=== PATIENT | male | born 1945 | race Caucasian/White ===

== ENCOUNTER 2017-01-27 13:17 | Emergency (ER) | payer OTHER ==
[~2017-01-27] VITALS: Ht 180.3 cm; Wt 152.0 kg
[~2017-01-27 13:17] MED LIST: ADVIN25/60 INH; ALBU1AER9 INH; ALLO100T PO; APR/25 PO; ASPCH81X PO; BUPR-79 PO; CARV25TA2 PO; CHOL100010 PO; CTPTP3 TD; ENAL1TAB31 PO; FAMO1TAB48 PO; FRS/40 PO; FURO20TA PO; GLIM4TAB2 PO; INSDGI SC; INSUINJ8 SC; IPRASOL4 INH; IRBE-39 PO; LEVO100T48 PO; MULT-506 PO; NITR0.4D TD; NITR0.4S76 SL; OXGN; PRS5 PO; ROSU40TA PO; SNK PO; SPIR25TA PO; TERA5CAP PO; TIOTCAP INH; WARF3TAB PO
[2017-01-27 13:19] VITALS: TEMP 36.5; Ht 180.3 cm; Wt 152.0 kg
[2017-01-27] MEDS ORDERED: INSDGI SC ×2 (14:11)
[2017-01-27] MEDS ORDERED: NVLNI SC (14:11)
[2017-01-27] MEDS ORDERED: CLON0.3D4 TD (14:11)
[2017-01-27] MEDS ORDERED: LEVO100T PO (14:11)
[2017-01-27] MEDS ORDERED: CEFTRIAXONE SOD INJ 1 GM ADDVIAL IV STA (14:27)
[2017-01-27] MEDS ORDERED: SODIUM CHLORIDE 0.9% 500ML 500 ML IV STA (14:27)
[2017-01-27] MEDS ORDERED: CEPH500C PO (16:21)
--- NOTE | 2017-01-27 16:22 | EMERGENCY ROOM VISIT NOTE ---
History Report prepared by Simi: Veronica Joseph Under the Supervision of: Dr. Mack Santana D.O. First contact with patient: 13:40 Chief Complaint: ILLNESS Stated Complaint: SENT BY 'S OFFICE/ADMISSION-SEPTIC Nursing Triage Summary: general illness, "more SOB than usual" states he was [facility] today and that he had blood work drawn there and they were going to fax it over to our ER History of Present Illness The patient is a 71 year old male who presents to the Emergency Room with complaints of a persistent illness that began several days ago. He currently rates his discomfort as a 2/10 in severity. The patient's notes that over the past several days, the patient has been experiencing urinary incontinence. She states that the patient had a subjective fever last evening and additionally had chills. The patient's notes that the patient has a history of BPH. She states that the patient was taken to his PCP's office today and had lab work, urine test, and a chest x-ray. She states that the patient was referred to the emergency department to rule out urosepsis. The patient states that he has a chronic cough, but states that it has recently worsened. Source of History: patient Onset: several days ago Position: other (global) Symptom Intensity: 2/10 Quality: other (illness) Timing: other (persistent) Associated Symptoms: + chills, + fevers, + urinary symptoms (urinary incontinence) Review of Systems See HPI for pertinent positives & negatives. A total of 10 systems reviewed and were otherwise negative. Past Medical & Surgical Medical Problems: (1) Anticoagulated on warfarin (2) Benign prostatic hypertrophy (3) Closed fracture of right ankle (4) COPD (chronic obstructive pulmonary disease) (5) Diabetes mellitus, type 2 (6) Dyslipidemia (7) GERD (gastroesophageal reflux disease) (8) History of DVT (deep vein thrombosis) (9) History of meningioma (10) History of pulmonary embolism (11) History of squamous cell carcinoma of skin (12) Hypertension (13) Hypothyroidism (14) Nocturnal hypoxia (15) Sleep apnea (16) Systolic CHF, chronic Surgical Problems: (1) History of inguinal hernia repair (2) S/P TURP (transurethral resection of prostate) (3) Skin cancer removal (4) Status post coronary artery stent placement (5) Status post craniotomy Family History Cancer MOTHER Diabetes MOTHER HTN BROTHER Heart attack BROTHER Social History Smoking Status: Former Smoker Alcohol Use: none Drug Use: none Marital Status: Housing Status: lives with family Occupation Status: retired Current/Historical Medications Scheduled Allopurinol (Zyloprim), 200 MG PO DAILY Aspirin (Aspirin Chewable), 81 MG PO DAILY Bupropion (Wellbutrin Sr), 150 MG PO BID Carvedilol (Coreg), 50 MG PO BID Cephalexin Monohydrate (Keflex), 500 MG PO QID Clonidine Hcl (Fficiyqa-Bnu-7), 1 PATCH TD WK Enalapril Maleate (Vasotec), 20 MG PO BID Famotidine (Pepcid), 40 MG PO QPM Finasteride (Finasteride), 5 MG PO QPM Furosemide (Lasix), 40 MG PO MWF Furosemide (Lasix), 20 MG PO DIRECTED Glimepiride (Glimepiride), 4 MG PO BID Hydralazine HCl (Hydralazine HCl), 25 MG PO BID Insulin Glargine (Lantus), 70 UNITS SC HS Insulin Glargine (Lantus), 30 UNITS SC AM Insulin Human NPH (Novolin N), 30 UNITS SC AMHS Irbesartan (Avapro), 1 TAB PO QAM Levothyroxine Sodium (Synthroid), 100 MCG PO DAILY Multivitamin (Multivitamin), 1 TAB PO QAM Oxygen (Oxygen), 4 LITER NA HS Rosuvastatin Calcium (Crestor), 40 MG PO QPM Spironolactone (Aldactone), 12.5 MG PO QAM Terazosin (Hytrin), 5 MG PO BID Warfarin Sodium (Coumadin), 9 MG PO 3XWK Warfarin Sodium (Coumadin), 6 MG PO 4XWK Scheduled PRN Ipratropium-Albuterol (Duoneb), 1 TREATMENT INH QID PRN for SOB/Wheezing Nitroglycerin (Nitroglycerin Lingual), 1 SPRAY SL UD PRN for Chest Pain Senna (Senna Lax), 1 TAB PO BID PRN for Constipation Allergies Coded Allergies: No Known Allergies (Verified , 01/27/17) Physical Exam Vital Signs Date Time Temp Pulse Resp B/P Pulse Ox O2 Delivery O2 Flow Rate FiO2 01/27/17 16:48 67 18 118/78 98 01/27/17 15:15 77 18 122/84 98 Room Air 01/27/17 13:35 Room Air 92 01/27/17 13:33 20 93 Room Air 01/27/17 13:19 36.5 70 18 97/60 91 Room Air Physical Exam CONSTITUTIONAL/VITAL SIGNS: Reviewed / noted above. GENERAL: Non-toxic in appearance. INTEGUMENTARY: Warm, dry, and [place]. HEAD: Normocephalic. EYES: without scleral icterus or trauma. ENT/OROPHARYNX: clear and moist. LYMPHADENOPATHY/NECK: Is supple without lymphadenopathy or meningismus. RESPIRATORY: Lungs clear and equal. CARDIOVASCULAR: Regular rate and rhythm. GI/ABDOMEN: Soft and nontender. No organomegaly or pulsatile mass. No rebound or guarding. Normal bowel sounds. EXTREMITIES: Warm and well perfused. BACK: No CVA tenderness. NEUROLOGICAL: Intact without focal deficits. PSYCHIATRIC: normal affect. MUSCULOSKELETAL: Normally developed with good muscle tone. Medical Decision & Procedures ER Provider Diagnostic Interpretation: Chest x-ray done as an outpatient today showed worsening bi-basilar atelectasis. Laboratory Results Lab work done at outpatient today: WBC 10.29 Hemoglobin 13.5 Platelet 129 Urinalysis large blood, nitrite negative, esterase large BUN 30 Creatinine 2.8. Laboratory results as stated above per my review. Medications Administered Medications (Trade) Dose Ordered Sig/Niyah Route Start Time Stop Time Status Last Admin Dose Admin Ceftriaxone Sodium 1 gm 1 gm NOW STAT IV 01/27/17 14:27 01/27/17 14:29 DC 01/27/17 15:08 1 GM Sodium Chloride (Nss 500ml) 500 ml @ 999 mls/hr Q31M STAT IV 01/27/17 14:27 01/27/17 14:57 DC 01/27/17 15:08 999 MLS/HR ED Course 1341: Previous medical records were reviewed. The patient was evaluated in room B12B. A complete history and physical examination was performed. 1427: Ordered Sodium Chloride 500 ml @ 999 mls/hr IV, Rocephin Inj 1 gm IV. 1622: I reevaluated the patient and he is resting comfortably. I discussed the exam findings with him and I discussed the treatment plan. He verbalized complete understanding and agreement. He is ready to go home. Medical Decision Differential includes viral illness, influenza, streptococcal pharyngitis, meningitis, pneumonia, sinusitis, UTI, pyelonephritis, otitis media. This 71-year-[facility]. Concern was the patient's renal insufficiency and to rule out sepsis. The patient's symptoms primarily involving urinary system. His cough is mostly chronic. Blood work performed earlier today as noted above. The white blood count was unremarkable. He is not anemic. The urine suggest infection. He has had some subjective chills but no documented fever. He had no fever here today. His laboratory studies also suggest dehydration and worsening of his baseline renal insufficiency. His baseline creatinine was 1.9 in November. His BUN today is 30. A chest x- ray showed worsening atelectasis. He was treated with IV fluids here as well as IV antibiotics. The patient is felt to be stable for discharge on antibiotics. He will be placed on Keflex twice a day. Follow-up with PCP recommended 1-2 days for recheck. Impression Primary Impression: UTI (urinary tract infection) Additional Impressions: Dehydration Renal insufficiency Scribe Attestation The scribe's documentation has been prepared under my direction and personally reviewed by me in its entirety. I confirm that the note above accurately reflects all work, treatment, procedures, and medical decision making performed by me. Departure Information Dispostion Home / Self-Care Prescriptions Cephalexin Monohydrate (Keflex) 500 Mg Cap 500 MG PO QID, #20 CAP Prov: Mack Santnaa D.O. 01/27/17 Referrals No Doctor, Assigned (PCP) Forms HOME CARE DOCUMENTATION FORM, IMPORTANT VISIT INFORMATION, WORK / SCHOOL INSTRUCTIONS Patient Instructions [facility], UTI Additional Instructions Keflex as prescribed. Follow-up with your doctor for recheck in 1-2 days. Return to emergency department for worsening or new concerns. Problem Qualifiers
[2017-01-27 16:48] VITALS: BP 118/78; PULSE 67; O2SAT 98
== END 2017-01-27 17:02 | disposition home or self-care (01) ==
LOC: C.EDB 13:19
DX: E86.0 Dehydration (principal); N39.0 Urinary tract infection, site not specified; N28.9 Disorder of kidney and ureter, unspecified; I10 Essential (primary) hypertension; E11.9 Type 2 diabetes mellitus without complications; E78.5 Hyperlipidemia, unspecified; E03.9 Hypothyroidism, unspecified; J44.9 Chronic obstructive pulmonary disease, unspecified; I50.20 Unspecified systolic (congestive) heart failure; K21.9 Gastro-esophageal reflux disease without esophagitis; N40.0 Benign prostatic hyperplasia without lower urinary tract symptoms; G47.30 Sleep apnea, unspecified; Z86.711 Personal history of pulmonary embolism; Z86.718 Personal history of other venous thrombosis and embolism; Z87.81 Personal history of (healed) traumatic fracture; Z79.01 Long term (current) use of anticoagulants; Z98.61 Coronary angioplasty status; Z98.890 Other specified postprocedural states; Z79.82 Long term (current) use of aspirin; Z79.4 Long term (current) use of insulin; Z79.899 Other long term (current) drug therapy; Z80.9 Family history of malignant neoplasm, unspecified; Z83.3 Family history of diabetes mellitus; Z82.49 Family history of ischemic heart disease and other diseases of the circulatory system

== ENCOUNTER 2021-08-28 11:43 | Inpatient (IN) ==
[2021-08-28] MEDS ORDERED: ALBUT/IPRATROP 3MG/0.5MG NEB 3 ML VIAL INH STA (12:07)
[2021-08-28] MEDS ORDERED: dexAMETHasone**PF** 10 MG/ML VIAL IV ONE (12:07)
--- NOTE | 2021-08-28 12:14 | Emergency Department Note ---
Impression & Plan SOB (shortness of breath), COPD exacerbation, Cough, COVID-19 ED Provider Note NAME: TERESSA ROJAS AGE: 75 SEX: M : 1945 ARRIVES VIA: Walk-In INFORMANT: [Patient] ED PROVIDER(S): [Norris Sheets MD] CHIEF COMPLAINT: Illness HISTORY OF PRESENT ILLNESS: The patient is a 75-year-old male who has been sick for 5 days with a cough, some shortness of breath, and a headache. No fever. The patient was tested a few days ago and his Covid results are positive. He is vaccinated against COVID-19. No known Covid exposures. Patient has a home pulse ox and his saturation has been in the high 80s, he has been feeling more short of breath. He went to [facility] today and he was referred to the ER for further testing and probable admission. The patient does have COPD, he is diabetic. No chest pain. No vomiting or diarrhea. REVIEW OF SYSTEMS: See HPI for pertinent positives and negatives. A total of ten systems were reviewed and were otherwise negative. PMHx/PSHx: See Below SOCIAL HISTORY: See Below. PHYSICAL EXAM: GENERAL: Patient is in no obvious distress. HEENT: No acute trauma, normocephalic atraumatic, mucous membranes moist, no nasal congestion, no scleral icterus. NECK: No stridor, no adenopathy, no meningismus, trachea is midline. LUNGS: The patient does seem short of breath just sitting on the stretcher. He has an increased respiratory rate. No wheezing. He does have crackles bilaterally. Breath sounds are diminished bilaterally. HEART: Without murmurs gallops or rubs, regular rate and rhythm. ABDOMEN: Soft, nontender, bowel sounds positive, no hernias, no peritonitis. EXTREMITIES: No cyanosis, mild bilateral pedal edema, full range of motion of all the joints without pain or difficulty, no signs for acute trauma. NEUROLOGIC: Oriented x 3, no acute motor or sensory deficits, no focal weakness. SKIN: No rash, no jaundice, no diaphoresis. DIFFERENTIAL DIAGNOSIS: Reactive airway disease, pneumonia, pneumothorax, COVID-19, COPD, CHF, infection, cardiac ischemia, pulmonary embolism, bronchitis, musculoskeletal, gastrointestinal, as well as other pathologies. EMERGENCY DEPARTMENT COURSE/PROCEDURES: ECG: Indication was shortness of breath. The ECG shows a normal sinus rhythm with a rate of 77. There is no ST elevation, no PVCs. The QTc is 459. Continuous Cardiac Monitoring: An order was placed for continuous cardiac monitoring. The monitor shows a rate of 75 with normal sinus rhythm. MEDICAL DECISION MAKING: There is no leukocytosis, in fact, the white count was slightly low at 4.5. There was a normal hemoglobin. Platelet count somewhat low at 108. INR was 2, this is consistent with his Coumadin use. There was a slight creatinine elevation at 1.48. No significant electrolyte abnormality requiring emergent correction. Lactic acid level was not elevated. No concerning liver enzyme elevation. Covid test returned positive. Chest x-ray showed some chronic findings, there is no CHF, pneumonia or pneumothorax. On exam, the patient appeared short of breath. He had an increased respiratory rate. The patient received IV Decadron, he was given a DuoNeb. Patient is Covid positive with a history of COPD. He is feeling short of breath and looks short of breath. I feel he is suffering from an exacerbation of COPD. The patient would benefit from a hospital stay. He needs monitoring, treatment for his COPD flare. I did speak with the patient and case management. The on- call hospitalist was consulted. Past Med/Surg History Medical History Anticoagulated on warfarin COPD (chronic obstructive pulmonary disease) Diabetes mellitus, type 2 Hypertension Social History Smoking Status: Never smoker Feels Safe at Home: Yes Allergies Allergies Allergy/AdvReac Type Severity Reaction Status Date / Time No Known Allergies Allergy Verified 08/28/21 14:22 Home Meds Home Medications Medication Instructions Recorded Confirmed Senna Lax 1 tab PO HS 08/28/21 08/28/21 acetaminophen 500 mg tablet 500 mg PO Q6H PRN 08/28/21 08/28/21 bupropion HCl 150 mg tablet,12 hr 150 mg PO BID 08/28/21 08/28/21 sustained-release carvedilol 25 mg tablet 50 mg PO BID 08/28/21 08/28/21 clonidine 0.3 mg/24 hr weekly 1 patch TRANSDERMAL WK 08/28/21 08/28/21 transdermal patch famotidine 20 mg tablet 20 mg PO HS 08/28/21 08/28/21 finasteride 5 mg tablet 5 mg PO HS 08/28/21 08/28/21 furosemide 20 mg tablet (Lasix) 20 mg PO 5XWK 08/28/21 08/28/21 furosemide 40 mg tablet (Lasix) 40 mg PO 3XWK 08/28/21 08/28/21 guaifenesin 600 mg tablet, 600 mg PO Q12H 08/28/21 08/28/21 extended release 12 hr (Mucinex) hydralazine 50 mg tablet 50 mg PO TID 08/28/21 08/28/21 insulin glargine 100 unit/mL 70 unit SUBCUT BID 08/28/21 08/28/21 subcutaneous solution (Lantus U-100 Insulin) insulin regular human 100 unit/mL 30 unit SUBCUT TID 08/28/21 08/28/21 injection solution (Novolin R Regular U-100 Insulin) ipratropium 0.5 mg-albuterol 3 mg 1 ml INHALATION QID PRN 08/28/21 08/28/21 (2.5 mg base)/3 mL nebulization soln levothyroxine 100 mcg tablet 100 mcg PO QAM 08/28/21 08/28/21 losartan 100 mg tablet 100 mg PO QAM 08/28/21 08/28/21 multivitamin 1 tab PO QAM 08/28/21 08/28/21 nitroglycerin 1 patch TRANSDERMAL QAM 08/28/21 08/28/21 rosuvastatin 40 mg tablet 40 mg PO HS 08/28/21 08/28/21 spironolactone 25 mg tablet 12.5 mg PO BID 08/28/21 08/28/21 terazosin 5 mg capsule 5 mg PO BID 08/28/21 08/28/21 umeclidinium 62.5 mcg-vilanterol 1 inh INHALATION DAILY 08/28/21 08/28/21 25 mcg/actuation powdr for inhalation (Anoro Ellipta) warfarin 3 mg tablet 9 mg PO 2XWK 08/28/21 08/28/21 warfarin 6 mg tablet 6 mg PO 5XWK 08/28/21 08/28/21 Results & Data (ED) Vital Signs Vital Signs - 24 hr 08/28/21 11:45 08/28/21 12:08 08/28/21 12:43 Temperature 36.0 C L Temperature Source Temporal Artery Scan Pulse Rate 75 Pulse Rate from SpO2 Sensor Respiratory Rate 20 Respiratory Rate [Exercises] Respiratory Rate [Recovery] Respiratory Effort / Characteristics Non-Labored Spontaneous Respiratory Depth Normal Respiratory Pattern Regular Blood Pressure 194/96 H Blood Pressure Mean 128 Blood Pressure Position Sitting Pulse Oximetry 93 93 Pulse Oximetry [Exercises] Pulse Oximetry [Recovery] Oxygen Delivery Method Room Air Room Air Room Air Oxygen Flow Rate 0 Sepsis Recent Fever Within 48 Hours No Sepsis New/Unexplained Change in Mental Status No Sepsis Action Taken by Nursing No Action Required 08/28/21 12:50 08/28/21 13:00 08/28/21 13:30 Temperature Temperature Source Pulse Rate 76 80 78 Pulse Rate from SpO2 Sensor 78 80 78 Respiratory Rate 17 20 15 Respiratory Rate [Exercises] 32 H Respiratory Rate [Recovery] 36 H Respiratory Effort / Characteristics Respiratory Depth Respiratory Pattern Blood Pressure 143/67 H Blood Pressure Mean 92 Blood Pressure Position Pulse Oximetry 94 94 93 Pulse Oximetry [Exercises] 93 Pulse Oximetry [Recovery] 94 Oxygen Delivery Method Room Air Oxygen Flow Rate 0 Sepsis Recent Fever Within 48 Hours Sepsis New/Unexplained Change in Mental Status Sepsis Action Taken by Nursing 08/28/21 13:34 Temperature Temperature Source Pulse Rate Pulse Rate from SpO2 Sensor Respiratory Rate 20 Respiratory Rate [Exercises] Respiratory Rate [Recovery] Respiratory Effort / Characteristics Non-Labored Spontaneous Respiratory Depth Respiratory Pattern Blood Pressure Blood Pressure Mean Blood Pressure Position Pulse Oximetry 93 Pulse Oximetry [Exercises] Pulse Oximetry [Recovery] Oxygen Delivery Method Room Air Oxygen Flow Rate Sepsis Recent Fever Within 48 Hours Sepsis New/Unexplained Change in Mental Status Sepsis Action Taken by [facility] Medications Current Medication List: was personally reviewed by me Laboratory Data Attestation: I reviewed the patient's lab results. Result diagrams: 08/28/21 13:42 08/28/21 13:42 Lab Results 08/28/21 08/28/21 08/28/21 Range/Units 12:43 12:43 13:42 WBC 4.56 L (4.8-10.8) K/uL RBC 4.82 (4.7-6.1) M/uL Hgb 14.6 (14.0-18.0) g/dL Hct 44.7 (42-52) % MCV 92.7 (80-100) fL MCH 30.3 (25-34) pg MCHC 32.7 (32-36) g/dL RDW Std Deviation 54.1 H (36.4-46.3) fL RDW Coeff of Gucci 15.8 H (11.5-14.5) % Plt Count 108 L (130-400) K/uL MPV 10.0 (7.4-10.4) fL Immature Gran % (Auto) 0.0 % Neut % (Auto) 63.8 % Lymph % (Auto) 26.3 % [place] % (Auto) 8.6 % Eos % (Auto) 0.9 % Baso % (Auto) 0.4 % Neut # (Auto) 2.91 (1.4-6.5) K/uL Lymph # (Auto) 1.20 (1.2-3.4) K/uL [facility] # (Auto) 0.39 (0.11-0.59) K/uL Eos # (Auto) 0.04 (0-0.5) K/uL Baso # (Auto) 0.02 (0-0.2) K/uL Immature Gran # (Auto) 0.00 (0.00-0.02) K/uL PT (9.0-12.0) Seconds INR (0.9-1.1) APTT (21.0-31.0) Seconds PTT Ratio Sodium (136-145) mmol/L Potassium (3.5-5.1) mmol/L Chloride (98-107) mmol/L Carbon Dioxide (21-32) mmol/L Anion Gap (3-11) BUN (7-18) mg/dl Creatinine (0.6-1.4) mg/dl Est Cr Clr Drug Dosing ml/min Est GFR ( Amer) ml/min Est GFR (Non-Af Amer) ml/min BUN/Creatinine Ratio (10-20) Glucose (70-99) mg/dl Lactate (0.4-2.0) mmol/L Calcium (8.5-10.1) mg/dl Magnesium (1.8-2.4) mg/dl Total Bilirubin (0.2-1) mg/dl AST (15-37) U/L ALT (12-78) U/L Alkaline Phosphatase (45-117) U/L Troponin I (0-0.045) ng/ml C-Reactive Protein (0-0.29) mg/dl Total Protein (6.4-8.2) gm/dl Albumin (3.4-5.0) gm/dl Globulin (2.5-4.0) gm/dl Albumin/Globulin Ratio (0.9-2) Procalcitonin (0-0.5) ng/ml COVID-19 Eval Order Covid19 at [facility] SARS-CoV-2 (PCR) POSITIVE A* (Negative) 08/28/21 08/28/21 08/28/21 Range/Units 13:42 13:42 13:42 WBC (4.8-10.8) K/uL RBC (4.7-6.1) M/uL Hgb (14.0-18.0) g/dL Hct (42-52) % MCV (80-100) fL MCH (25-34) pg MCHC (32-36) g/dL RDW Std Deviation (36.4-46.3) fL RDW Coeff of Gucci (11.5-14.5) % Plt Count (130-400) K/uL MPV (7.4-10.4) fL Immature Gran % (Auto) % Neut % (Auto) % Lymph % (Auto) % [place] % (Auto) % Eos % (Auto) % Baso % (Auto) % Neut # (Auto) (1.4-6.5) K/uL Lymph # (Auto) (1.2-3.4) K/uL [facility] # (Auto) (0.11-0.59) K/uL Eos # (Auto) (0-0.5) K/uL Baso # (Auto) (0-0.2) K/uL Immature Gran # (Auto) (0.00-0.02) K/uL PT 19.4 H (9.0-12.0) Seconds INR 2.0 H (0.9-1.1) APTT 38.6 H (21.0-31.0) Seconds PTT Ratio 1.5 Sodium 141 (136-145) mmol/L Potassium 3.8 (3.5-5.1) mmol/L Chloride 109 H (98-107) mmol/L Carbon Dioxide 23 (21-32) mmol/L Anion Gap 9.0 (3-11) BUN 19 H (7-18) mg/dl Creatinine 1.48 H (0.6-1.4) mg/dl Est Cr Clr Drug Dosing 64.0 ml/min Est GFR ( Amer) 52.9 ml/min Est GFR (Non-Af Amer) 45.6 ml/min BUN/Creatinine Ratio 12.8 (10-20) Glucose 135 H (70-99) mg/dl Lactate 0.8 (0.4-2.0) mmol/L Calcium 9.3 (8.5-10.1) mg/dl Magnesium 2.2 (1.8-2.4) mg/dl Total Bilirubin 0.4 (0.2-1) mg/dl AST 17 (15-37) U/L ALT 27 (12-78) U/L Alkaline Phosphatase 67 (45-117) U/L Troponin I < 0.015 (0-0.045) ng/ml C-Reactive Protein 1.60 H (0-0.29) mg/dl Total Protein 7.0 (6.4-8.2) gm/dl Albumin 3.2 L (3.4-5.0) gm/dl Globulin 3.8 (2.5-4.0) gm/dl Albumin/Globulin Ratio 0.8 L (0.9-2) Procalcitonin (0-0.5) ng/ml COVID-19 Eval Order SARS-CoV-2 (PCR) (Negative) 08/28/21 08/28/21 Range/Units 13:42 13:43 WBC (4.8-10.8) K/uL RBC (4.7-6.1) M/uL Hgb (14.0-18.0) g/dL Hct (42-52) % MCV (80-100) fL MCH (25-34) pg MCHC (32-36) g/dL RDW Std Deviation (36.4-46.3) fL RDW Coeff of Gucci (11.5-14.5) % Plt Count (130-400) K/uL MPV (7.4-10.4) fL Immature Gran % (Auto) % Neut % (Auto) % Lymph % (Auto) % [facility] % (Auto) % Eos % (Auto) % Baso % (Auto) % Neut # (Auto) (1.4-6.5) K/uL Lymph # (Auto) (1.2-3.4) K/uL [facility] # (Auto) (0.11-0.59) K/uL Eos # (Auto) (0-0.5) K/uL Baso # (Auto) (0-0.2) K/uL Immature Gran # (Auto) (0.00-0.02) K/uL PT (9.0-12.0) Seconds INR (0.9-1.1) APTT (21.0-31.0) Seconds PTT Ratio Sodium (136-145) mmol/L Potassium (3.5-5.1) mmol/L Chloride (98-107) mmol/L Carbon Dioxide (21-32) mmol/L Anion Gap (3-11) BUN (7-18) mg/dl Creatinine (0.6-1.4) mg/dl Est Cr Clr Drug Dosing ml/min Est GFR ( Amer) ml/min Est GFR (Non-Af Amer) ml/min BUN/Creatinine Ratio (10-20) Glucose (70-99) mg/dl Lactate (0.4-2.0) mmol/L Calcium (8.5-10.1) mg/dl Magnesium (1.8-2.4) mg/dl Total Bilirubin (0.2-1) mg/dl AST (15-37) U/L ALT (12-78) U/L Alkaline Phosphatase (45-117) U/L Troponin I (0-0.045) ng/ml C-Reactive Protein Cancelled (0-0.29) mg/dl Total Protein (6.4-8.2) gm/dl Albumin (3.4-5.0) gm/dl Globulin (2.5-4.0) gm/dl Albumin/Globulin Ratio (0.9-2) Procalcitonin < 0.05 (0-0.5) ng/ml COVID-19 Eval Order SARS-CoV-2 (PCR) (Negative) Administered Medications Discontinued Medications Albuterol (Albut/Ipratrop 3mg/0.5mg Neb 3 Ml Vial) 3 ml INH NOW STA Stop: 08/28/21 12:08 Last Admin: 08/28/21 13:33 Dose: 3 ml Documented by: [id number] Dexamethasone Sodium Phosphate (DexamethasonePf 10 Mg/Ml Vial) 6 mg IV NOW ONE Stop: 08/28/21 12:08 Last Admin: 08/28/21 12:49 Dose: 6 mg Documented by: [id number] Imaging Data Radiologist's Impression: Chest X-Ray 08/28/21 12:08 XR chest 1V portable HISTORY: 75 years-old Male SOB acute shortness of breath COMPARISON: Chest radiograph 06/02/2016 TECHNIQUE: Portable AP view of the chest FINDINGS: Cardiac silhouette is upper limits of normal in size. Calcified plaque of the thoracic aorta. No pneumothorax, large pleural effusion or overt pulmonary edema. Retrocardiac opacity is similar to comparison suggestive of atelectasis/scarring. Chronic interstitial coarsening is most pronounced at the level of the lung bases. Degenerative changes of the shoulders and spine. Possible hiatal hernia. IMPRESSION: 1. Chronic interstitial coarsening without acute process. 2. Retrocardiac left basilar opacities suggestive of atelectasis/scarring is si milar to the 06/02/2016 exam. ACT 112: Negative or not required by law. The above report was generated using voice recognition software. It may contain grammatical, syntax or spelling errors. Electronically signed by: Harrison Wolfe M.D. 08/28/2021 12:35 PM Discharge Plan Visit Data Chief Complaint: Illness Stated Complaint: COVID+, REFERRED BY DOCTOR ED Provider: Norris Sheets Discharge Problem: SOB (shortness of breath), COPD exacerbation, Cough, COVID-19 Patient Disposition: Admitted As Inpatient Condition: Fair Forms Stand Alone Forms: My [facility] Prescriptions Prescriptions: No Action multivitamin Tablet 1 tab PO QAM RF: 0 furosemide [Lasix] 40 mg Tablet 40 mg PO 3XWK RF: 0 terazosin 5 mg Capsule 5 mg PO BID RF: 0 bupropion HCl 150 mg Tablet Sustained-Release 12 Hr 150 mg PO BID RF: 0 carvedilol 25 mg Tablet 50 mg PO BID RF: 0 ipratropium-albuterol [DuoNeb] 0.5 mg-3 mg(2.5 mg base)/3 mL Solution For Nebulization 1 ml INHALATION QID PRN (Reason: Shortness Of Breath) RF: 0 Lantus U-100 Insulin 100 unit/mL Solution 70 unit SUBCUT BID RF: 0 acetaminophen 500 mg Tablet 500 mg PO Q6H PRN (Reason: Pain) RF: 0 spironolactone 25 mg Tablet 12.5 mg PO BID RF: 0 warfarin 3 mg tablet 9 mg PO 2XWK RF: 0 levothyroxine 100 mcg Tablet 100 mcg PO QAM RF: 0 warfarin 6 mg Tablet 6 mg PO 5XWK RF: 0 famotidine 20 mg Tablet 20 mg PO HS RF: 0 Novolin R Regular U-100 Insuln 100 unit/mL Solution 30 unit SUBCUT TID RF: 0 hydralazine 50 mg Tablet 50 mg PO TID RF: 0 clonidine 0.3 mg/24 hr Patch Weekly 1 patch transdermal WK RF: 0 furosemide [Lasix] 20 mg Tablet 20 mg PO 5XWK RF: 0 losartan 100 mg Tablet 100 mg PO QAM RF: 0 finasteride 5 mg Tablet 5 mg PO HS RF: 0 rosuvastatin 40 mg Tablet 40 mg PO HS RF: 0 Anoro Ellipta 62.5-25 mcg/actuation Blister With Device 1 inh INHALATION DAILY RF: 0 guaifenesin [Mucinex] 600 mg Tablet Extended Release 12hr 600 mg PO Q12H RF: 0 Senna Lax 1 tab PO HS RF: 0 nitroglycerin 1 patch transdermal QAM RF: 0 Referrals Referrals: Charan Anderson MD [Primary Care Provider] -
--- NOTE | 2021-08-28 12:36 | XRay Report ---
XR chest 1V portable HISTORY: 75 years-old Male SOB acute shortness of breath COMPARISON: Chest radiograph 06/02/2016 TECHNIQUE: Portable AP view of the chest FINDINGS: Cardiac silhouette is upper limits of normal in size. Calcified plaque of the thoracic aorta. No pneu mothorax, large pleural effusion or overt pulmonary edema. Retrocardiac opacity is similar to compari son suggestive of atelectasis/scarring. Chronic interstitial coarsening is most pronounced at the lev el of the lung bases. Degenerative changes of the shoulders and spine. Possible hiatal hernia. IMPRESSION: 1. Chronic interstitial coarsening without acute process. 2. Retrocardiac left basilar opacities suggestive of atelectasis/scarring is similar to the 06/02/2016 exam. ACT 112: Negative or not required by law. The above report was generated using voice recognition software. It may contain grammatical, syntax o r spelling errors. Electronically signed by: Harrison Wolfe M.D. 08/28/2021 12:35 PM
[2021-08-28 13:52] LABS: Basophils # (auto) 0.02 K/uL (0-0.2); Basophils % (auto) 0.4 %; Eosinophils # (auto) 0.04 K/uL (0-0.5); Eosinophils % (auto) 0.9 %; Hematocrit (blood only) 44.7 % (42-52); Hemoglobin 14.6 g/dL (14.0-18.0); Lymphocytes % (auto) 26.3 %; Mean Corpuscular Hemoglobin 30.3 pg (25-34); Mean Corpuscular Hgb Conc 32.7 g/dL (32-36); Mean Corpuscular Volume 92.7 fL (80-100); Monocytes # (auto) 0.39 K/uL (0.11-0.59); Monocytes % (auto) 8.6 %; Neutrophils # (auto) 2.91 K/uL (1.4-6.5); Neutrophils % (auto) 63.8 %; Platelet Count 108 K/uL (130-400); RDW Coefficient of Variation 15.8 % (11.5-14.5); RDW Standard Deviation 54.1 fL (36.4-46.3); Red Blood Count 4.82 M/uL (4.7-6.1); White Blood Count 4.56 K/uL (4.8-10.8)
[2021-08-28 14:01] LABS: Partial Thromboplastin Ratio 1.5; Partial Thromboplastin Time 38.6 Seconds (21.0-31.0); Prothrombin Time 19.4 Seconds (9.0-12.0)
[2021-08-28 14:24] LABS: Alanine Aminotransferase 27 U/L (12-78); Albumin Level 3.2 gm/dl (3.4-5.0); Aspartate Aminotransferase 17 U/L (15-37); BUN Creatinine Ratio 12.8 (10-20); Blood Urea Nitrogen 19 mg/dl (7-18); Calcium 9.3 mg/dl (8.5-10.1); Carbon Dioxide 23 mmol/L (21-32); Chloride 109 mmol/L (98-107); Est GFR (African American) 52.9 ml/min; Est GFR (Non-African American) 45.6 ml/min; Glucose 135 mg/dl (70-99); Magnesium 2.2 mg/dl (1.8-2.4); Potassium 3.8 mmol/L (3.5-5.1); Sodium 141 mmol/L (136-145)
[2021-08-28 14:29] LABS: Albumin Globulin Ratio 0.8 (0.9-2); Alkaline Phosphatase 67 U/L (45-117); Bilirubin,Total 0.4 mg/dl (0.2-1); Globulin 3.8 gm/dl (2.5-4.0); Troponin I < 0.015 ng/ml (0-0.045)
--- NOTE | 2021-08-28 16:31 | History & Physical Report ---
Date of Service August 28, 2021 Assessment & Plan (1) COPD (chronic obstructive pulmonary disease): Plan: History of COPD and sleep apnea Likely has exacerbation due to COVID-19 infection No definite pneumonia in x-ray Saturating reasonably well on room air Uses oxygen at 5 L with CPAP at night and 2 to 2.5 L on ambulation Dexamethasone has been started for COPD exacerbation and also treatment for Covid 19 infection His inhalers and other medications will be continued (2) COVID-19: Plan: Awaiting CRP and prolactin level If the prolactin is elevated will add antibiotic (3) Hypertension: Plan: Remains on the upper side We will continue current medication (4) Hypothyroidism: Plan: Continue supplement (5) GERD (gastroesophageal reflux disease): Plan: Continue PPI and H2 blockade (6) Benign prostatic hypertrophy: Plan: Continue current medication (7) Diabetes mellitus, type 2: Plan: Will continue insulin as he has been taking at home We will check hemoglobin A1c (8) Sleep apnea: Plan: Continue BiPAP at night with settings and oxygen level is at home Patient can use his own BiPAP (9) History of DVT (deep vein thrombosis): Plan: INR is therapeutic at 2.0 Continue Coumadin (10) History of pulmonary embolism: Plan: As above (11) Dyslipidemia: Plan: Continue statin (12) History of meningioma: Plan: No acute findings (13) Systolic CHF, chronic: Plan: We will hold oral Lasix and spironolactone Give Lasix intravenously while in the hospital (14) S/P TURP (transurethral resection of prostate): Plan: No acute symptoms (15) Status post craniotomy: Plan: Secondary to meningioma DVT prophylaxis On Coumadin CODE STATUS Conditional code-resuscitation without intubation History of Present Illness Chief Complaint: Cough with increasing shortness of breath since Thursday Primary Care Provider: Charan Anderson MD Is a 75-year-old obese male with significant past medical history of COPD and sleep apnea on nightly CPAP with 5 L of oxygen, diabetes on insulin, CAD status post stent, chronic kidney disease and other medical condition as mentioned in the H&P has been complaining of cough with increasing shortness of breath which have been worse since Thursday. He is vaccinated for Covid and was positive for COVID-19 infection today. He usually uses oxygen at 5 L at night with CPAP and 2 to 2.5 L on ambulation during the daytime. He was noted to have low saturation below 80s at home and was advised by his PCP to come to the hospital. He remained 93% on room air in the hospital. His chest x-ray did not show any patchy opacities suggestive of viral pneumonia. Given the chronic comorbid conditions with positive Covid test and symptoms of cough and shortness of breath he was admitted to Covid unit for continuation of care. Denies any fever and/or chills, has cough productive of yellowish-white phlegm, chest pain due to cough, denies any nausea and or vomiting or any abdominal pain, denies any increasing leg swelling. Allergies Allergy/AdvReac Type Severity Reaction Status Date / Time No Known Allergies Allergy Verified 08/28/21 14:22 Home Medications Medication Instructions Recorded Confirmed Type Senna Lax 1 tab PO HS 08/28/21 08/28/21 History acetaminophen 500 mg tablet 500 mg PO Q6H PRN 08/28/21 08/28/21 History bupropion HCl 150 mg tablet,12 hr 150 mg PO BID 08/28/21 08/28/21 History sustained-release carvedilol 25 mg tablet 50 mg PO BID 08/28/21 08/28/21 History clonidine 0.3 mg/24 hr weekly 1 patch TRANSDERMAL WK 08/28/21 08/28/21 History transdermal patch famotidine 20 mg tablet 20 mg PO HS 08/28/21 08/28/21 History finasteride 5 mg tablet 5 mg PO HS 08/28/21 08/28/21 History furosemide 20 mg tablet (Lasix) 20 mg PO 5XWK 08/28/21 08/28/21 History furosemide 40 mg tablet (Lasix) 40 mg PO 3XWK 08/28/21 08/28/21 History guaifenesin 600 mg tablet, 600 mg PO Q12H 08/28/21 08/28/21 History extended release 12 hr (Mucinex) hydralazine 50 mg tablet 50 mg PO TID 08/28/21 08/28/21 History insulin glargine 100 unit/mL 70 unit SUBCUT BID 08/28/21 08/28/21 History subcutaneous solution (Lantus U-100 Insulin) insulin regular human 100 unit/mL 30 unit SUBCUT TID 08/28/21 08/28/21 History injection solution (Novolin R Regular U-100 Insulin) ipratropium 0.5 mg-albuterol 3 mg 1 ml INHALATION QID PRN 08/28/21 08/28/21 History (2.5 mg base)/3 mL nebulization soln levothyroxine 100 mcg tablet 100 mcg PO QAM 08/28/21 08/28/21 History losartan 100 mg tablet 100 mg PO QAM 08/28/21 08/28/21 History multivitamin 1 tab PO QAM 08/28/21 08/28/21 History nitroglycerin 1 patch TRANSDERMAL QAM 08/28/21 08/28/21 History rosuvastatin 40 mg tablet 40 mg PO HS 08/28/21 08/28/21 History spironolactone 25 mg tablet 12.5 mg PO BID 08/28/21 08/28/21 History terazosin 5 mg capsule 5 mg PO BID 08/28/21 08/28/21 History umeclidinium 62.5 mcg-vilanterol 1 inh INHALATION DAILY 08/28/21 08/28/21 History 25 mcg/actuation powdr for inhalation (Anoro Ellipta) warfarin 3 mg tablet 9 mg PO 2XWK 08/28/21 08/28/21 History warfarin 6 mg tablet 6 mg PO 5XWK 08/28/21 08/28/21 History Past Med/Surg History Social History Smoking Status: Never smoker Feels Safe at Home: Yes Review of Systems Review of Systems: All systems reviewed & are unremarkable except as noted in HPI & below Physical Exam Physical Exam: Lying in bed with minimal shortness of breath Constitutional: well developed, well nourished, + ill appearing and + morbidly obese Eyes: PERRL, conjunctivae normal, anicteric sclerae ENMT: external ear and nose normal, oropharynx normal Neck: trachea midline, no thyromegaly Respiratory: + respiratory distress (Minimal distress at rest) and + cough Auscultation: + diminished lung sounds, + crackles (At the bases) and + wheezes (Minimal wheezing) Cardiovascular: Rate/Rhythm: regular rate and regular rhythm; not tachycardic Heart Sounds: normal S1 and normal S2; no murmur Extremities: + edema (1+ edema bilaterally) Gastrointestinal (Abdomen): Inspection/Auscultation: + abdomen distended and normal bowel sounds Percussion/Palpation: abdomen soft; abdomen nontender Musculoskeletal: No acute arthritis in any joint Skin: Chronic skin changes in the legs Neurologic: Alert, awake and oriented x3 Psychiatric: A+Ox3, euthymic affect Lymphatic: no cervical or axillary lymphadenopathy Results & Data Results & Data ([facility]) Vital Signs (Past 12 Hours) Vital Signs Temp Pulse Resp Resp Resp BP Pulse Ox 08/28/21 13:34 20 93 08/28/21 13:30 78 15 143/67 H 93 08/28/21 13:00 80 20 32 H 36 H 94 08/28/21 12:50 76 17 94 08/28/21 12:08 93 08/28/21 11:45 36.0 C L 75 20 194/96 H 93 Pulse Ox Pulse Ox 08/28/21 13:34 08/28/21 13:30 08/28/21 13:00 93 94 08/28/21 12:50 08/28/21 12:08 08/28/21 11:45 Laboratory Results Short CBC 08/28/21 Range/Units 13:42 WBC 4.56 L (4.8-10.8) K/uL Hgb 14.6 (14.0-18.0) g/dL Hct 44.7 (42-52) % Plt Count 108 L (130-400) K/uL BMP 08/28/21 13:42 Sodium 141 Potassium 3.8 Chloride 109 H Carbon Dioxide 23 BUN 19 H Creatinine 1.48 H Glucose 135 H Calcium 9.3 Cardiac Enzymes 08/28/21 Range/Units 13:42 Troponin I < 0.015 (0-0.045) ng/ml Liver Function 08/28/21 Range/Units 13:42 Total Bilirubin 0.4 (0.2-1) mg/dl AST 17 (15-37) U/L ALT 27 (12-78) U/L Alkaline Phosphatase 67 (45-117) U/L Albumin 3.2 L (3.4-5.0) gm/dl Medications Administered Current Inpatient Medications Furosemide (Furosemide 40 Mg/4 Ml Vial) 60 mg IV DAILY [facility] Stop: 09/27/21 16:14 Dexamethasone 6 mg/ Syringe 1.5 mls @ 1 mls/min IV Q24H [facility] Stop: 09/27/21 16:14 Code Status & VTE Plan VTE Prophylaxis Plan VTE Prophylaxis will be ordered: Yes
[2021-08-28] MEDS ORDERED: FUROSEMIDE 40 MG/4 ML VIAL IV STA (17:04)
[2021-08-28] MEDS ORDERED: ALBUT/IPRATROP 3MG/0.5MG NEB 3 ML VIAL INH PRN (19:36)
[2021-08-28] MEDS ORDERED: ACETAMINOPHEN 500 MG TAB PO PRN (20:35)
[2021-08-28] MEDS ORDERED: LANTUS PER UNIT CHARGE SQ SCH (21:00)
[2021-08-28] MEDS ORDERED: NovoLIN-R INSULIN PER UNIT CHARGE SQ SCH (21:00)
[2021-08-28] MEDS: ROSUVASTATIN CALCIUM 20 MG TAB PO SCH (21:53)
[2021-08-28] MEDS: FINASTERIDE 5 MG TAB PO SCH (21:55)
[2021-08-28] MEDS: DOCUSATE SODIUM/SENNA 50/8.6MG TAB PO SCH (21:55)
[2021-08-28] MEDS: buPROPion SR 150 MG TABCR PO SCH (21:56)
[2021-08-28] MEDS: FAMOTIDINE 20 MG TAB PO SCH (21:56)
[2021-08-28] MEDS: carvediloL 25 MG TAB PO SCH (21:57)
[2021-08-28] MEDS: TERAZOSIN HCL 5 MG CAP PO SCH (21:58)
[2021-08-28] MEDS: WARFARIN SOD 6 MG TAB PO SCH (21:58)
[2021-08-28] MEDS: hydrALAZINE TAB 50 MG TAB PO SCH (22:00)
[2021-08-28] MEDS: guaiFENesin 600 MG TABCR PO SCH (22:01)
[2021-08-28] MEDS ORDERED: GLUCOSE 40% GEL 15 GM TUBE PO PRN (22:05)
[2021-08-28] MEDS ORDERED: DEXTROSE 50% 50 ML SYRINGE IV PRN (22:05)
[2021-08-28] MEDS ORDERED: GLUCAGON FOR INJ 1 MG VIAL SQ PRN (22:05)
[2021-08-28] MEDS ORDERED: CARBOHYDRATES FOR HYPOGLYCEMIA PO PRN (22:05)
[2021-08-28] MEDS ORDERED: GLUCOSE 10 TABS/TUBE PO PRN (22:05)
[2021-08-28] MEDS: INSULIN ASPART 100 UNITS/ML 3 ML PEN SC SCH (23:00)
[2021-08-28] MEDS: INSULIN GLARGINE 100 UNIT/ML VIAL SC SCH (23:01)
[2021-08-29] MEDS: CHECK CLONIDINE PATCH PLACEMENT SCH ×4 (01:12→23:22)
[2021-08-29] MEDS: LEVOTHYROXINE SODIUM 100 MCG TABLET PO SCH (05:18)
--- NOTE | 2021-08-29 06:08 | Electrocardiogram Report ---
Test Reason : Blood Pressure : / mmHG Vent. Rate : 077 BPM Atrial Rate : 077 BPM P-R Int : 190 ms QRS Dur : 108 ms QT Int : 406 ms P-R-T Axes : 063 -62 041 degrees QTc Int : 459 ms Normal sinus rhythm Left anterior fascicular block Poor R wave progression, consider anterior WI vs. lead placement vs. LVH Abnormal ECG When compared with ECG of 01-JUN-2016 00:05, No significant change Confirmed by Hiren Kaminski ([id number]) on 08/29/2021 6:07:34 AM Referred By: Charan Anderson Confirmed By:Hiren Kaminski
[2021-08-29 08:53] LABS: Basophils # (auto) 0.01 K/uL (0-0.2); Basophils % (auto) 0.2 %; Hematocrit (blood only) 47.3 % (42-52); Hemoglobin 15.5 g/dL (14.0-18.0); Immature Granulocytes # (auto) 0.01 K/uL (0.00-0.02); Immature Granulocytes % (auto) 0.2 %; Lymphocytes # (auto) 1.23 K/uL (1.2-3.4); Lymphocytes % (auto) 24.2 %; Mean Corpuscular Hemoglobin 30.6 pg (25-34); Mean Corpuscular Hgb Conc 32.8 g/dL (32-36); Mean Corpuscular Volume 93.5 fL (80-100); Mean Platelet Volume 10.4 fL (7.4-10.4); Monocytes # (auto) 0.35 K/uL (0.11-0.59); Monocytes % (auto) 6.9 %; Neutrophils # (auto) 3.49 K/uL (1.4-6.5); Neutrophils % (auto) 68.5 %; Platelet Count 125 K/uL (130-400); RDW Coefficient of Variation 15.7 % (11.5-14.5); RDW Standard Deviation 53.9 fL (36.4-46.3); Red Blood Count 5.06 M/uL (4.7-6.1); White Blood Count 5.09 K/uL (4.8-10.8)
[2021-08-29 09:00] LABS: INR 1.8 (0.9-1.1); Prothrombin Time 17.5 Seconds (9.0-12.0)
[2021-08-29] MEDS ORDERED: NITROGLYCERIN TD SCH (09:00)
[2021-08-29 09:11] LABS: BUN Creatinine Ratio 15.8 (10-20); Calcium 9.9 mg/dl (8.5-10.1); Creatinine Clr Calc Pharmacy 52.3 ml/min; Est GFR (African American) 41.7 ml/min; Potassium 3.9 mmol/L (3.5-5.1)
[2021-08-29] MEDS: INSULIN ASPART 100 UNITS/ML 3 ML PEN SC SCH ×4 (09:39→21:33)
[2021-08-29] MEDS: UMECLIDINIUM/VILANTEROL 62.5/25MCG 7 PUFFS/INHALER INH SCH (09:41)
[2021-08-29] MEDS: TERAZOSIN HCL 5 MG CAP PO SCH ×2 (09:41→20:29)
[2021-08-29] MEDS: LOSARTAN POTASSIUM 50 MG TAB PO SCH (09:42)
[2021-08-29] MEDS: MULTIVITAMIN TAB PO SCH (09:42)
[2021-08-29] MEDS: guaiFENesin 600 MG TABCR PO SCH ×2 (09:42→20:31)
[2021-08-29] MEDS: carvediloL 25 MG TAB PO SCH ×2 (09:42→20:30)
[2021-08-29] MEDS: buPROPion SR 150 MG TABCR PO SCH ×2 (09:43→20:29)
[2021-08-29] MEDS: hydrALAZINE TAB 50 MG TAB PO SCH ×3 (09:43→20:30)
[2021-08-29] MEDS: FUROSEMIDE 40 MG/4 ML VIAL IV SCH (09:44)
[2021-08-29] MEDS: INSULIN GLARGINE 100 UNIT/ML VIAL SC SCH ×2 (09:46→21:33)
[2021-08-29] MEDS: NITROGLYCERIN 0.4 MG/HR PATCH TD SCH (09:58)
[2021-08-29] MEDS: dexAMETHasone 6 MG in SYRINGE 0 ML IV SCH (12:55)
--- NOTE | 2021-08-29 15:01 | Hospitalist Progress Note ---
Date of Service August 29, 2021 Assessment & Plan (1) COPD (chronic obstructive pulmonary disease): Plan: History of COPD and sleep apnea Likely has exacerbation due to COVID-19 infection No definite pneumonia in x-ray Saturating reasonably well on room air Uses oxygen at 5 L with CPAP at night and 2 to 2.5 L on ambulation Dexamethasone has been started for COPD exacerbation and also treatment for Covid 19 infection His inhalers and other medications will be continued He has been stable and has not been requiring any oxygen to maintain saturation If he does not require any oxygen during the next 24 hours and remains at his baseline with activity he will be discharged home (2) COVID-19: Plan: He is vaccinated for COVID-19 Awaiting CRP and prolactin level His CRP and prolactin level are not elevated enough to start any treatment (3) Hypertension: Plan: Remains on the upper side We will continue current medication (4) Hypothyroidism: Plan: Continue supplement (5) GERD (gastroesophageal reflux disease): Plan: Continue PPI and H2 blockade (6) Benign prostatic hypertrophy: Plan: Continue current medication (7) Diabetes mellitus, type 2: Plan: Will continue insulin as he has been taking at home We will check hemoglobin A1c (8) Sleep apnea: Plan: Continue BiPAP at night with settings and oxygen level is at home Patient can use his own BiPAP (9) History of DVT (deep vein thrombosis): Plan: INR is therapeutic at 2.0 Continue Coumadin (10) History of pulmonary embolism: Plan: As above (11) Dyslipidemia: Plan: Continue statin (12) History of meningioma: Plan: No acute findings (13) Systolic CHF, chronic: Plan: We will hold oral Lasix and spironolactone Give Lasix intravenously while in the hospital (14) S/P TURP (transurethral resection of prostate): Plan: No acute symptoms (15) Status post craniotomy: Plan: Secondary to meningioma DVT prophylaxis On Coumadin CODE STATUS Conditional code-resuscitation without intubation Admission and Anticipated Discharge Date Admission Date: August 28, 2021 Subjective 08/19/2021 The patient was seen and examined in telemetry unit and in the Covid room He has been stable and complains to have shortness of breath with exertion He has not been requiring any oxygen to maintain saturation Has minimal cough Review of Systems Review of Systems: All systems reviewed and are unremarkable except as noted below Respiratory: Shortness of breath with exertion Physical Exam Physical Exam: Lying in bed with minimal shortness of breath Constitutional: well developed, well nourished, + ill appearing and + morbidly obese Eyes: PERRL, conjunctivae normal, anicteric sclerae ENMT: external ear and nose normal, oropharynx normal Neck: trachea midline, no thyromegaly Respiratory: + respiratory distress (Minimal distress at rest) and + cough Auscultation: + diminished lung sounds, + crackles (At the bases) and + wheezes (Minimal wheezing) Cardiovascular: Rate/Rhythm: regular rate and regular rhythm; not tachycardic Heart Sounds: normal S1 and normal S2; no murmur Extremities: + edema (1+ edema bilaterally) Gastrointestinal (Abdomen): Inspection/Auscultation: + abdomen distended and normal bowel sounds Percussion/Palpation: abdomen soft; abdomen nontender Musculoskeletal: No acute arthritis involving any joint Neurologic: Alert, awake and oriented x3. Generally weak Psychiatric: A+Ox3, euthymic affect Lymphatic: no cervical or axillary lymphadenopathy Results & Data Results & Data ([facility]) Vital Signs (Past 12 Hours) Vital Signs Temp Pulse Resp BP BP Pulse Ox 08/29/21 11:08 36.4 C L 62 19 133/76 92 08/29/21 07:37 36.4 C L 56 L 20 165/88 H 95 08/29/21 03:23 36.7 C 65 18 125/78 95 Laboratory Results Short CBC 08/29/21 Range/Units 08:32 WBC 5.09 (4.8-10.8) K/uL Hgb 15.5 (14.0-18.0) g/dL Hct 47.3 (42-52) % Plt Count 125 L (130-400) K/uL BMP 08/29/21 08:32 Sodium 138 Potassium 3.9 Chloride 104 Carbon Dioxide 27 BUN 28 H Creatinine 1.80 H D Glucose 188 H Calcium 9.9 Medications Administered Current Inpatient Medications Acetaminophen (Acetaminophen 500 Mg Tab) 500 mg PO Q6H PRN PRN Reason: Pain Stop: 09/27/21 20:34 Albuterol (Albut/Ipratrop 3mg/0.5mg Neb 3 Ml Vial) 1 ml INH QID PRN PRN Reason: Shortness Of Breath Stop: 09/27/21 19:35 Bupropion HCl (Bupropion Sr 150 Mg Tabcr) 150 mg PO BID [facility] Stop: 09/27/21 20:59 Last Admin: 08/29/21 09:43 Dose: 150 mg Documented by: Carvedilol (Carvedilol 25 Mg Tab) 50 mg PO BID [facility] Stop: 09/27/21 20:59 Last Admin: 08/29/21 09:42 Dose: 50 mg Documented by: Clonidine HCl (Clonidine Hcl 0.3 Mg/24 Hr Transderm Sys) 1 patch TD Nguyen@0900 [facility] Stop: 10/01/21 08:59 Dextrose (Dextrose 50% 50 Ml Syringe) 25 - 50 ml IV UD PRN; Protocol PRN Reason: Hypoglycemia Protocol Stop: 09/27/21 22:04 Famotidine (Famotidine 20 Mg Tab) 20 mg PO HS [facility] Stop: 09/27/21 20:59 Last Admin: 08/28/21 21:56 Dose: 20 mg Documented by: Finasteride (Finasteride 5 Mg Tab) 5 mg PO HS [facility] Stop: 09/27/21 20:59 Last Admin: 08/28/21 21:55 Dose: 5 mg Documented by: Furosemide (Furosemide 40 Mg/4 Ml Vial) 60 mg IV DAILY [facility] Stop: 09/28/21 08:59 Last Admin: 08/29/21 09:44 Dose: 60 mg Documented by: Glucagon (Glucagon For Inj 1 Mg Vial) 1 mg SQ UD PRN; Protocol PRN Reason: Hypoglycemia Protocol Stop: 09/27/21 22:04 Glucose (Glucose 10 Tabs/Tube) 4 - 8 tabs PO UD PRN; Protocol PRN Reason: Hypoglycemia Protocol Stop: 09/27/21 22:04 Glucose (Glucose 40% Gel 15 Gm Tube) 15 - 30 gm PO UD PRN; Protocol PRN Reason: Hypoglycemia Protocol Stop: 09/27/21 22:04 Guaifenesin (Guaifenesin 600 Mg Tabcr) 600 mg PO Q12H [facility] Stop: 09/27/21 20:59 Last Admin: 08/29/21 09:42 Dose: 600 mg Documented by: Hydralazine HCl (Hydralazine Tab 50 Mg Tab) 50 mg PO TID [facility] Stop: 09/27/21 20:59 Last Admin: 08/29/21 12:58 Dose: 50 mg Documented by: Dexamethasone 6 mg/ Syringe 1.5 mls @ 1 mls/min IV Q24H [facility] Stop: 09/28/21 11:59 Last Admin: 08/29/21 12:55 Dose: 1 mls/min Documented by: Insulin Aspart (Insulin Aspart 100 Units/Ml 3 Ml Pen) 0 units SC ACHS [facility] Stop: 09/27/21 21:59 Last Admin: 08/29/21 12:53 Dose: 16 units Documented by: Insulin Glargine (Insulin Glargine 100 Unit/Ml Vial) 70 units SC HS [facility] Stop: 09/27/21 21:59 Last Admin: 08/28/21 23:01 Dose: 70 units Documented by: Insulin Glargine (Insulin Glargine 100 Unit/Ml Vial) 30 units SC [facility] Stop: 09/28/21 08:59 Last Admin: 08/29/21 09:46 Dose: 30 units Documented by: Levothyroxine Sodium ([facility]ine S[facility] 100 Mcg Tablet) [facility] Stop: 09/28/21 06:29 Last Admin: 08/29/21 05:18 Dose: 100 mcg Documented by: Losartan Potassium (Losartan Potassium 50 Mg Tab) 100 mg PO [facility] Stop: 09/28/21 08:59 Last Admin: 08/29/21 09:42 Dose: 100 mg Documented by: Miscellaneous (Remove Clonidine Patch) 1 ea N/A CQWK [facility] Stop: 10/01/21 08:58 Miscellaneous (Check Clonidine Patch Placement) 1 ea N/A QS [facility] Stop: 09/28/21 00:00 Last Admin: 08/29/21 09:38 Dose: 1 ea Documented by: Miscellaneous (Remove Nitro-Dur Patch) 1 ea N/A DAILY@2100 [facility] Stop: 09/27/21 20:59 Last Admin: 08/28/21 22:02 Dose: 1 ea Documented by: Miscellaneous (Carbohydrates For Hypoglycemia ) 15 - 30 gm PO UD PRN PRN Reason: Hypoglycemia Protocol Stop: 09/27/21 22:04 Multivitamins (Multivitamin Tab) 1 tab PO [facility] Stop: 09/28/21 08:59 Last Admin: 08/29/21 09:42 Dose: 1 tab Documented by: Nitroglycerin (Nitroglycerin 0.4 Mg/Hr Patch) 1 patch TD [facility] Stop: 09/28/21 08:59 Last Admin: 08/29/21 09:58 Dose: 1 patch Documented by: Rosuvastatin Calcium (Rosuvastatin Calcium 20 Mg Tab) 40 mg PO [facility] Stop: 09/27/21 20:59 Last Admin: 08/28/21 21:53 Dose: 40 mg Documented by: Senna/Docusate Sodium (Docusate Sodium/Senna 50/8.6mg Tab) 1 tab PO [facility] Stop: 09/27/21 20:59 Last Admin: 08/28/21 21:55 Dose: 1 tab Documented by: Terazosin HCl (Terazosin Hcl 5 Mg Cap) 5 mg PO BID [facility] Stop: 09/27/21 20:59 Last Admin: 08/29/21 09:41 Dose: 5 mg Documented by: Umeclidinium/Vilanterol (Umeclidinium/Vilanterol 62.5/25mcg 7 Puffs/Inhaler) 1 puffs INH DAILY [facility] Stop: 09/28/21 08:59 Last Admin: 08/29/21 09:41 Dose: 1 puffs Documented by: Warfarin Sodium (Warfarin Sod 3 Mg Tab) 9 mg PO MoFr@1600 [facility] Stop: 09/29/21 15:59 Warfarin Sodium (Warfarin Sod 6 Mg Tab) 6 mg PO [id number]@1600 [facility] Stop: 09/27/21 20:59 Last Admin: 08/28/21 21:58 Dose: 6 mg Documented by:
[2021-08-29] MEDS: WARFARIN SOD 6 MG TAB PO SCH (16:08)
[2021-08-29] MEDS: FINASTERIDE 5 MG TAB PO SCH (20:30)
[2021-08-29] MEDS: FAMOTIDINE 20 MG TAB PO SCH (20:30)
[2021-08-29] MEDS: DOCUSATE SODIUM/SENNA 50/8.6MG TAB PO SCH (20:31)
[2021-08-29] MEDS: ROSUVASTATIN CALCIUM 20 MG TAB PO SCH (20:31)
[2021-08-30] MEDS: LEVOTHYROXINE SODIUM 100 MCG TABLET PO SCH (05:32)
[2021-08-30 07:37] LABS: BUN Creatinine Ratio 22.6 (10-20); Calcium 9.1 mg/dl (8.5-10.1); Creatinine Clr Calc Pharmacy 54.5 ml/min; Est GFR (African American) 44.1 ml/min; Potassium 3.9 mmol/L (3.5-5.1)
[2021-08-30 07:38] LABS: C Reactive Protein 0.75 mg/dl (0-0.29)
[2021-08-30] MEDS: INSULIN ASPART 100 UNITS/ML 3 ML PEN SC SCH ×4 (08:10→20:18)
[2021-08-30] MEDS: INSULIN GLARGINE 100 UNIT/ML VIAL SC SCH ×2 (08:11→20:16)
[2021-08-30] MEDS: MULTIVITAMIN TAB PO SCH (08:38)
[2021-08-30] MEDS: UMECLIDINIUM/VILANTEROL 62.5/25MCG 7 PUFFS/INHALER INH SCH (08:38)
[2021-08-30] MEDS: TERAZOSIN HCL 5 MG CAP PO SCH ×2 (08:38→20:15)
[2021-08-30] MEDS: buPROPion SR 150 MG TABCR PO SCH ×2 (08:39→20:14)
[2021-08-30] MEDS: guaiFENesin 600 MG TABCR PO SCH ×2 (08:39→20:15)
[2021-08-30] MEDS: carvediloL 25 MG TAB PO SCH ×2 (08:39→20:15)
[2021-08-30] MEDS: LOSARTAN POTASSIUM 50 MG TAB PO SCH (08:39)
[2021-08-30] MEDS: hydrALAZINE TAB 50 MG TAB PO SCH ×3 (08:39→20:14)
[2021-08-30] MEDS: FUROSEMIDE 40 MG/4 ML VIAL IV SCH (08:40)
[2021-08-30] MEDS: NITROGLYCERIN 0.4 MG/HR PATCH TD SCH (08:40)
[2021-08-30] MEDS: CHECK CLONIDINE PATCH PLACEMENT SCH ×2 (08:54→15:54)
[2021-08-30] MEDS: dexAMETHasone 6 MG in SYRINGE 0 ML IV SCH (12:17)
--- NOTE | 2021-08-30 15:39 | Hospitalist Progress Note ---
Date of Service August 30, 2021 Assessment & Plan (1) COPD (chronic obstructive pulmonary disease): Plan: History of COPD and sleep apnea Likely has exacerbation due to COVID-19 infection No definite pneumonia in x-ray Saturating reasonably well on room air Uses oxygen at 5 L with CPAP at night and 2 to 2.5 L on ambulation Dexamethasone has been started for COPD exacerbation and also treatment for Covid 19 infection His inhalers and other medications will be continued He has been stable and has not been requiring any oxygen to maintain saturation If he does not require any oxygen during the next 24 hours and remains at his baseline with activity he will be discharged home He does not require any oxygen at rest to maintain saturation and has minimal cough PT has been ordered and if he does well with that he will be discharged home this afternoon or tomorrow (2) COVID-19: Plan: He is vaccinated for COVID-19 Awaiting CRP and prolactin level His CRP and prolactin level are not elevated enough to start any treatment As above (3) Hypertension: Plan: Remains on the upper side We will continue current medication (4) Hypothyroidism: Plan: Continue supplement (5) GERD (gastroesophageal reflux disease): Plan: Continue PPI and H2 blockade (6) Benign prostatic hypertrophy: Plan: Continue current medication (7) Diabetes mellitus, type 2: Plan: Will continue insulin as he has been taking at home We will check hemoglobin A1c (8) Sleep apnea: Plan: Continue BiPAP at night with settings and oxygen level is at home Patient can use his own BiPAP (9) History of DVT (deep vein thrombosis): Plan: INR is therapeutic at 2.0 Continue Coumadin (10) History of pulmonary embolism: Plan: As above (11) Dyslipidemia: Plan: Continue statin (12) History of meningioma: Plan: No acute findings (13) Systolic CHF, chronic: Plan: We will hold oral Lasix and spironolactone Give Lasix intravenously while in the hospital (14) S/P TURP (transurethral resection of prostate): Plan: No acute symptoms (15) Status post craniotomy: Plan: Secondary to meningioma DVT prophylaxis On Coumadin CODE STATUS Conditional code-resuscitation without intubation Admission and Anticipated Discharge Date Admission Date: August 28, 2021 Subjective 08/29/2021 The patient was seen and examined in telemetry unit and in the Covid room He has been stable and complains to have shortness of breath with exertion He has not been requiring any oxygen to maintain saturation Has minimal cough 08/30/2021 The patient was seen and examined in telemetry unit and in the Covid room He has been at his baseline Still has cough but does not require any oxygen at rest to maintain saturation Review of Systems Review of Systems: All systems reviewed and are unremarkable except as noted below Respiratory: Shortness of breath with exertion Physical Exam Physical Exam: Lying in bed with minimal shortness of breath Constitutional: well developed, well nourished, + ill appearing and + morbidly obese Eyes: PERRL, conjunctivae normal, anicteric sclerae ENMT: external ear and nose normal, oropharynx normal Neck: trachea midline, no thyromegaly Respiratory: + respiratory distress (Minimal distress at rest) and + cough Auscultation: + diminished lung sounds, + crackles (At the bases) and + wheezes (Minimal wheezing) Cardiovascular: Rate/Rhythm: regular rate and regular rhythm; not tachycardic Heart Sounds: normal S1 and normal S2; no murmur Extremities: + edema (1+ edema bilaterally) Gastrointestinal (Abdomen): Inspection/Auscultation: + abdomen distended and normal bowel sounds Percussion/Palpation: abdomen soft; abdomen nontender Musculoskeletal: No acute arthritis in any joint Neurologic: Alert, awake and oriented x3. No focal sensory and motor deficit appreciated Psychiatric: A+Ox3, euthymic affect Lymphatic: no cervical or axillary lymphadenopathy Results & Data Results & Data ([facility]) Vital Signs (Past 12 Hours) Vital Signs Temp Pulse Pulse Resp BP BP Pulse Ox 08/30/21 14:00 36.6 C 59 L 18 150/78 H 91 08/30/21 11:33 36.7 C 62 22 157/84 H 90 08/30/21 08:23 47 L 08/30/21 07:29 36.5 C 53 L 22 152/77 H 98 08/30/21 04:00 36.6 C 62 22 150/80 H 97 Laboratory Results [facility] 08/30/21 06:39 Sodium 137 Potassium 3.9 Chloride 106 Carbon Dioxide 27 BUN 39 H Creatinine 1.72 H Glucose 120 H Calcium 9.1 Medications Administered Current Inpatient Medications Acetaminophen (Acetaminophen 500 Mg Tab) 500 mg PO Q6H PRN PRN Reason: Pain Stop: 09/27/21 20:34 Last Admin: 08/30/21 06:49 Dose: 500 mg Documented by: Albuterol (Albut/Ipratrop 3mg/0.5mg Neb 3 Ml Vial) 1 ml INH QID PRN PRN Reason: Shortness Of Breath Stop: 09/27/21 19:35 Bupropion HCl (Bupropion Sr 150 Mg Tabcr) 150 mg PO BID [facility] Stop: 09/27/21 20:59 Last Admin: 08/30/21 08:39 Dose: 150 mg Documented by: Carvedilol (Carvedilol 25 Mg Tab) 50 mg PO BID [facility] Stop: 09/27/21 20:59 Last Admin: 08/30/21 08:39 Dose: 50 mg Documented by: Clonidine HCl (Clonidine Hcl 0.3 Mg/24 Hr Transderm Sys) 1 patch TD Nguyen@0900 [facility] Stop: 10/01/21 08:59 Dextrose (Dextrose 50% 50 Ml Syringe) 25 - 50 ml IV UD PRN; Protocol PRN Reason: Hypoglycemia Protocol Stop: 09/27/21 22:04 Famotidine (Famotidine 20 Mg Tab) 20 mg PO HS [facility] Stop: 09/27/21 20:59 Last Admin: 08/29/21 20:30 Dose: 20 mg Documented by: Finasteride (Finasteride 5 Mg Tab) 5 mg PO HS [facility] Stop: 09/27/21 20:59 Last Admin: 08/29/21 20:30 Dose: 5 mg Documented by: Furosemide (Furosemide 40 Mg/4 Ml Vial) 60 mg IV DAILY [facility] Stop: 09/28/21 08:59 Last Admin: 08/30/21 08:40 Dose: 60 mg Documented by: Glucagon (Glucagon For Inj 1 Mg Vial) 1 mg SQ UD PRN; Protocol PRN Reason: Hypoglycemia Protocol Stop: 09/27/21 22:04 Glucose (Glucose 10 Tabs/Tube) 4 - 8 tabs PO UD PRN; Protocol PRN Reason: Hypoglycemia Protocol Stop: 09/27/21 22:04 Glucose (Glucose 40% Gel 15 Gm Tube) 15 - 30 gm PO UD PRN; Protocol PRN Reason: Hypoglycemia Protocol Stop: 09/27/21 22:04 Guaifenesin (Guaifenesin 600 Mg Tabcr) 600 mg PO Q12H [facility] Stop: 09/27/21 20:59 Last Admin: 08/30/21 08:39 Dose: 600 mg Documented by: Hydralazine HCl (Hydralazine Tab 50 Mg Tab) 50 mg PO TID [facility] Stop: 09/27/21 20:59 Last Admin: 08/30/21 14:03 Dose: 50 mg Documented by: Dexamethasone 6 mg/ Syringe 1.5 mls @ 1 mls/min IV Q24H [facility] Stop: 09/28/21 11:59 Last Admin: 08/30/21 12:17 Dose: 1 mls/min Documented by: Insulin Aspart (Insulin Aspart 100 Units/Ml 3 Ml Pen) 0 units SC ACHS [facility] Stop: 09/27/21 21:59 Last Admin: 08/30/21 12:46 Dose: 18 units Documented by: Insulin Glargine (Insulin Glargine 100 Unit/Ml Vial) 70 units SC HS [facility] Stop: 09/27/21 21:59 Last Admin: 08/29/21 21:33 Dose: 70 units Documented by: Insulin Glargine (Insulin Glargine 100 Unit/Ml Vial) [facility] Stop: 09/28/21 08:59 Last Admin: 08/30/21 08:11 Dose: 30 units Documented by: Levothyroxine Sodium (Levothyroxine Sodium 100 Mcg Tablet) 100 mcg PO DAILYBB [facility] Stop: 09/28/21 06:29 Last Admin: 08/30/21 05:32 Dose: 100 mcg Documented by: Losartan Potassium (Losartan Potassium 50 Mg Tab) 100 mg PO QAM [facility] Stop: 09/28/21 08:59 Last Admin: 08/30/21 08:39 Dose: 100 mg Documented by: Miscellaneous (Remove Clonidine Patch) 1 ea N/A CQWK [facility] Stop: 10/01/21 08:58 Miscellaneous (Check Clonidine Patch Placement) 1 ea N/A QS [facility] Stop: 09/28/21 00:00 Last Admin: 08/30/21 08:54 Dose: 1 ea Documented by: Miscellaneous (Remove Nitro-Dur Patch) 1 ea N/A DAILY@2100 [facility] Stop: 09/27/21 20:59 Last Admin: 08/29/21 20:33 Dose: 1 ea Documented by: Miscellaneous (Carbohydrates For Hypoglycemia ) 15 - 30 gm PO UD PRN PRN Reason: Hypoglycemia Protocol Stop: 09/27/21 22:04 Multivitamins (Multivitamin Tab) 1 tab PO QAM [facility] Stop: 09/28/21 08:59 Last Admin: 08/30/21 08:38 Dose: 1 tab Documented by: Nitroglycerin (Nitroglycerin 0.4 Mg/Hr Patch) 1 patch TD QAM [facility] Stop: 09/28/21 08:59 Last Admin: 08/30/21 08:40 Dose: 1 patch Documented by: Rosuvastatin Calcium (Rosuvastatin Calcium 20 Mg Tab) 40 mg PO [facility] Stop: 09/27/21 20:59 Last Admin: 08/29/21 20:31 Dose: 40 mg Documented by: Senna/Docusate Sodium (Docusate Sodium/Senna 50/8.6mg Tab) 1 tab PO [facility] Stop: 09/27/21 20:59 Last Admin: 08/29/21 20:31 Dose: 1 tab Documented by: Terazosin HCl (Terazosin Hcl 5 Mg Cap) 5 mg PO BID [facility] Stop: 09/27/21 20:59 Last Admin: 08/30/21 08:38 Dose: 5 mg Documented by: Umeclidinium/Vilanterol (Umeclidinium/Vilanterol 62.5/25mcg 7 Puffs/Inhaler) 1 puffs INH DAILY [facility] Stop: 09/28/21 08:59 Last Admin: 08/30/21 08:38 Dose: 1 puffs Documented by: Warfarin Sodium (Warfarin Sod 3 Mg Tab) 9 mg PO MoFr@1600 [facility] Stop: 09/29/21 15:59 Warfarin Sodium (Warfarin Sod 6 Mg Tab) 6 mg PO SuTuWeThSa@1600 [facility] Stop: 09/27/21 20:59 Last Admin: 08/29/21 16:08 Dose: 6 mg Documented by:
[2021-08-30] MEDS ORDERED: WARFARIN SOD 3 MG TAB PO SCH (16:00)
[2021-08-30] MEDS: ROSUVASTATIN CALCIUM 20 MG TAB PO SCH (20:13)
[2021-08-30] MEDS: FAMOTIDINE 20 MG TAB PO SCH (20:15)
[2021-08-30] MEDS: FINASTERIDE 5 MG TAB PO SCH (20:15)
[2021-08-30] MEDS: DOCUSATE SODIUM/SENNA 50/8.6MG TAB PO SCH (20:16)
[2021-08-31] MEDS: CHECK CLONIDINE PATCH PLACEMENT SCH ×2 (00:02→08:31)
[2021-08-31] MEDS: LEVOTHYROXINE SODIUM 100 MCG TABLET PO SCH (06:31)
[2021-08-31] MEDS: buPROPion SR 150 MG TABCR PO SCH (08:32)
[2021-08-31] MEDS: carvediloL 25 MG TAB PO SCH (08:32)
[2021-08-31] MEDS: FUROSEMIDE 40 MG/4 ML VIAL IV SCH (08:32)
[2021-08-31] MEDS: hydrALAZINE TAB 50 MG TAB PO SCH ×2 (08:33→12:55)
[2021-08-31] MEDS: guaiFENesin 600 MG TABCR PO SCH (08:33)
[2021-08-31] MEDS: LOSARTAN POTASSIUM 50 MG TAB PO SCH (08:33)
[2021-08-31] MEDS: NITROGLYCERIN 0.4 MG/HR PATCH TD SCH (08:34)
[2021-08-31] MEDS: MULTIVITAMIN TAB PO SCH (08:34)
[2021-08-31] MEDS: TERAZOSIN HCL 5 MG CAP PO SCH (08:34)
[2021-08-31] MEDS: UMECLIDINIUM/VILANTEROL 62.5/25MCG 7 PUFFS/INHALER INH SCH (08:36)
[2021-08-31] MEDS: INSULIN GLARGINE 100 UNIT/ML VIAL SC SCH (09:36)
[2021-08-31] MEDS: INSULIN ASPART 100 UNITS/ML 3 ML PEN SC SCH ×2 (09:36→13:01)
--- NOTE | 2021-08-31 12:46 | Hospitalist Progress Note ---
Date of Service August 31, 2021 Assessment & Plan (1) COPD (chronic obstructive pulmonary disease): Plan: History of COPD and sleep apnea Likely has exacerbation due to COVID-19 infection No definite pneumonia in x-ray Saturating reasonably well on room air Uses oxygen at 5 L with CPAP at night and 2 to 2.5 L on ambulation Dexamethasone has been started for COPD exacerbation and also treatment for Covid 19 infection His inhalers and other medications will be continued He has been stable and has not been requiring any oxygen to maintain saturation If he does not require any oxygen during the next 24 hours and remains at his baseline with activity he will be discharged home He does not require any oxygen at rest to maintain saturation and has minimal cough PT has been ordered and if he does well with that he will be discharged home this afternoon or tomorrow He did very well with physical therapy and will be discharged home this afternoon He denies any symptoms as of this morning (2) COVID-19: Plan: He is vaccinated for COVID-19 Awaiting CRP and prolactin level His CRP and prolactin level are not elevated enough to start any treatment As above Remained on room air since admission (3) Hypertension: Plan: Remains on the upper side We will continue current medication (4) Hypothyroidism: Plan: Continue supplement (5) GERD (gastroesophageal reflux disease): Plan: Continue PPI and H2 blockade (6) Benign prostatic hypertrophy: Plan: Continue current medication (7) Diabetes mellitus, type 2: Plan: Will continue insulin as he has been taking at home We will check hemoglobin A1c (8) Sleep apnea: Plan: Continue BiPAP at night with settings and oxygen level is at home Patient can use his own BiPAP (9) History of DVT (deep vein thrombosis): Plan: INR is therapeutic at 2.0 Continue Coumadin (10) History of pulmonary embolism: Plan: As above (11) Dyslipidemia: Plan: Continue statin (12) History of meningioma: Plan: No acute findings (13) Systolic CHF, chronic: Plan: We will hold oral Lasix and spironolactone Give Lasix intravenously while in the hospital (14) S/P TURP (transurethral resection of prostate): Plan: No acute symptoms (15) Status post craniotomy: Plan: Secondary to meningioma DVT prophylaxis On Coumadin CODE STATUS Conditional code-resuscitation without intubation Will be discharged home this afternoon Admission and Anticipated Discharge Date Admission Date: August 28, 2021 Subjective 08/29/2021 The patient was seen and examined in telemetry unit and in the Covid room He has been stable and complains to have shortness of breath with exertion He has not been requiring any oxygen to maintain saturation Has minimal cough 08/30/2021 The patient was seen and examined in telemetry unit and in the Covid room He has been at his baseline Still has cough but does not require any oxygen at rest to maintain saturation 08/31/2021 The patient was seen and examined in telemetry unit in Covid room Has been with feeling much better and did pass the physical therapy He wants to go home He has not required any oxygen since admission to maintain saturation Review of Systems Review of Systems: All systems reviewed and are unremarkable except as noted below Respiratory: Shortness of breath with exertion Physical Exam Physical Exam: Lying in bed with minimal shortness of breath Constitutional: well developed, well nourished, + ill appearing and + morbidly obese Eyes: PERRL, conjunctivae normal, anicteric sclerae ENMT: external ear and nose normal, oropharynx normal Neck: trachea midline, no thyromegaly Respiratory: + respiratory distress (Minimal distress at rest) and + cough Auscultation: + diminished lung sounds, + crackles (At the bases) and + wheezes (Minimal wheezing) Cardiovascular: Rate/Rhythm: regular rate and regular rhythm; not tachycardic Heart Sounds: normal S1 and normal S2; no murmur Extremities: + edema (1+ edema bilaterally) Gastrointestinal (Abdomen): Inspection/Auscultation: + abdomen distended and normal bowel sounds Percussion/Palpation: abdomen soft; abdomen nontender Musculoskeletal: No apparent distress at rest Neurologic: Alert, awake and oriented x3. No focal sensory and motor deficit appreciated Psychiatric: A+Ox3, euthymic affect Lymphatic: no cervical or axillary lymphadenopathy Results & Data Results & Data ([facility]) Vital Signs (Past 12 Hours) Vital Signs Temp Pulse Pulse Resp BP BP Pulse Ox 08/31/21 12:15 36.5 C 60 20 115/65 92 08/31/21 11:13 94 08/31/21 07:48 36.8 C 58 L 22 148/73 H 08/31/21 07:33 45 L 08/31/21 03:40 36.4 C L 53 L 18 161/71 H 94 Medications Administered Current Inpatient Medications Acetaminophen (Acetaminophen 500 Mg Tab) 500 mg PO Q6H PRN PRN Reason: Pain Stop: 09/27/21 20:34 Last Admin: 08/30/21 06:49 Dose: 500 mg Documented by: Albuterol (Albut/Ipratrop 3mg/0.5mg Neb 3 Ml Vial) 1 ml INH QID PRN PRN Reason: Shortness Of Breath Stop: 09/27/21 19:35 Bupropion HCl (Bupropion Sr 150 Mg Tabcr) 150 mg PO BID [facility] Stop: 09/27/21 20:59 Last Admin: 08/31/21 08:32 Dose: 150 mg Documented by: Carvedilol (Carvedilol 25 Mg Tab) 50 mg PO BID [facility] Stop: 09/27/21 20:59 Last Admin: 08/31/21 08:32 Dose: 50 mg Documented by: Clonidine HCl (Clonidine Hcl 0.3 Mg/24 Hr Transderm Sys) 1 patch TD Nguyen@0900 [facility] Stop: 10/01/21 08:59 Dextrose (Dextrose 50% 50 Ml Syringe) 25 - 50 ml IV UD PRN; Protocol PRN Reason: Hypoglycemia Protocol Stop: 09/27/21 22:04 Famotidine (Famotidine 20 Mg Tab) 20 mg PO HS [facility] Stop: 09/27/21 20:59 Last Admin: 08/30/21 20:15 Dose: 20 mg Documented by: Finasteride (Finasteride 5 Mg Tab) 5 mg PO HS [facility] Stop: 09/27/21 20:59 Last Admin: 08/30/21 20:15 Dose: 5 mg Documented by: Furosemide (Furosemide 40 Mg/4 Ml Vial) 60 mg IV DAILY [facility] Stop: 09/28/21 08:59 Last Admin: 08/31/21 08:32 Dose: 60 mg Documented by: Glucagon (Glucagon For Inj 1 Mg Vial) 1 mg SQ UD PRN; Protocol PRN Reason: Hypoglycemia Protocol Stop: 09/27/21 22:04 Glucose (Glucose 10 Tabs/Tube) 4 - 8 tabs PO UD PRN; Protocol PRN Reason: Hypoglycemia Protocol Stop: 09/27/21 22:04 Glucose (Glucose 40% Gel 15 Gm Tube) 15 - 30 gm PO UD PRN; Protocol PRN Reason: Hypoglycemia Protocol Stop: 09/27/21 22:04 Guaifenesin (Guaifenesin 600 Mg Tabcr) 600 mg PO Q12H [facility] Stop: 09/27/21 20:59 Last Admin: 08/31/21 08:33 Dose: 600 mg Documented by: Hydralazine HCl (Hydralazine Tab 50 Mg Tab) 50 mg PO TID [facility] Stop: 09/27/21 20:59 Last Admin: 08/31/21 08:33 Dose: 50 mg Documented by: Dexamethasone 6 mg/ Syringe 1.5 mls @ 1 mls/min IV Q24H [facility] Stop: 09/28/21 11:59 Last Admin: 08/30/21 12:17 Dose: 1 mls/min Documented by: Insulin Aspart (Insulin Aspart 100 Units/Ml 3 Ml Pen) 0 units SC ACHS [facility] Stop: 09/27/21 21:59 Last Admin: 08/31/21 09:36 Dose: 25 units Documented by: Insulin Glargine (Insulin Glargine 100 Unit/Ml Vial) 70 units SC HS [facility] Stop: 09/27/21 21:59 Last Admin: 08/30/21 20:16 Dose: 70 units Documented by: Insulin Glargine (Insulin Glargine 100 Unit/Ml Vial) 30 units SC QAM [facility] Stop: 09/28/21 08:59 Last Admin: 08/31/21 09:36 Dose: 30 units Documented by: Levothyroxine Sodium (Levothyroxine Sodium 100 Mcg Tablet) 100 mcg PO DAILYBB [facility] Stop: 09/28/21 06:29 Last Admin: 08/31/21 06:31 Dose: 100 mcg Documented by: Losartan Potassium (Losartan Potassium 50 Mg Tab) 100 mg PO QAM [facility] Stop: 09/28/21 08:59 Last Admin: 08/31/21 08:33 Dose: 100 mg Documented by: Miscellaneous (Remove Clonidine Patch) 1 ea N/A CQWK [facility] Stop: 10/01/21 08:58 Miscellaneous (Check Clonidine Patch Placement) 1 ea N/A QS [facility] Stop: 09/28/21 00:00 Last Admin: 08/31/21 08:31 Dose: 1 ea Documented by: Miscellaneous (Remove Nitro-Dur Patch) 1 ea N/A DAILY@2100 [facility] Stop: 09/27/21 20:59 Last Admin: 08/30/21 20:18 Dose: 1 ea Documented by: Miscellaneous (Carbohydrates For Hypoglycemia ) 15 - 30 gm PO UD PRN PRN Reason: Hypoglycemia Protocol Stop: 09/27/21 22:04 Multivitamins (Multivitamin Tab) 1 tab PO QAM [facility] Stop: 09/28/21 08:59 Last Admin: 08/31/21 08:34 Dose: 1 tab Documented by: Nitroglycerin (Nitroglycerin 0.4 Mg/Hr Patch) 1 patch TD QAM [facility] Stop: 09/28/21 08:59 Last Admin: 08/31/21 08:34 Dose: 1 patch Documented by: Rosuvastatin Calcium (Rosuvastatin Calcium 20 Mg Tab) 40 mg PO [facility] Stop: 09/27/21 20:59 Last Admin: 08/30/21 20:13 Dose: 40 mg Documented by: Senna/Docusate Sodium (Docusate Sodium/Senna 50/8.6mg Tab) 1 tab PO [facility] Stop: 09/27/21 20:59 Last Admin: 08/30/21 20:16 Dose: 1 tab Documented by: Terazosin HCl (Terazosin Hcl 5 Mg Cap) 5 mg PO BID [facility] Stop: 09/27/21 20:59 Last Admin: 08/31/21 08:34 Dose: 5 mg Documented by: Umeclidinium/Vilanterol (Umeclidinium/Vilanterol 62.5/25mcg 7 Puffs/Inhaler) 1 puffs INH DAILY [facility] Stop: 09/28/21 08:59 Last Admin: 08/31/21 08:36 Dose: 1 puffs Documented by: Warfarin Sodium (Warfarin Sod 3 Mg Tab) 9 mg PO MoFr@1600 [facility] Stop: 09/29/21 15:59 Last Admin: 08/30/21 15:54 Dose: 9 mg Documented by: Warfarin Sodium (Warfarin Sod 6 Mg Tab) 6 mg PO SuTuWeThSa@1600 [facility] Stop: 09/27/21 20:59 Last Admin: 08/29/21 16:08 Dose: 6 mg Documented by:
[2021-08-31] MEDS: dexAMETHasone 6 MG in SYRINGE 0 ML IV SCH (12:56)
--- NOTE | 2021-08-31 17:33 | Discharge Summary ---
Date of Service August 31, 2021 Admission HPI Per Admitting Provider Is a 75-year-old obese male with significant past medical history of COPD and sleep apnea on nightly CPAP with 5 L of oxygen, diabetes on insulin, CAD status post stent, chronic kidney disease and other medical condition as mentioned in the H&P has been complaining of cough with increasing shortness of breath which have been worse since Thursday. He is vaccinated for Covid and was positive for COVID-19 infection today. He usually uses oxygen at 5 L at night with CPAP and 2 to 2.5 L on ambulation during the daytime. He was noted to have low saturation below 80s at home and was advised by his PCP to come to the hospital. He remained 93% on room air in the hospital. His chest x-ray did not show any patchy opacities suggestive of viral pneumonia. Given the chronic comorbid conditions with positive Covid test and symptoms of cough and shortness of breath he was admitted to Covid unit for continuation of care. Denies any fever and/or chills, has cough productive of yellowish-white phlegm, chest pain due to cough, denies any nausea and or vomiting or any abdominal pain, denies any increasing leg swelling. Admission Exam Per Admitting Provider Physical Exam: Lying in bed with minimal shortness of breath Constitutional: well developed, well nourished, + ill appearing and + morbidly obese Eyes: PERRL, conjunctivae normal, anicteric sclerae ENMT: external ear and nose normal, oropharynx normal Neck: trachea midline, no thyromegaly Respiratory: + respiratory distress (Minimal distress at rest) and + cough Auscultation: + diminished lung sounds, + crackles (At the bases) and + wheezes (Minimal wheezing) Cardiovascular: Rate/Rhythm: regular rate and regular rhythm; not tachycardic Heart Sounds: normal S1 and normal S2; no murmur Extremities: + edema (1+ edema bilaterally) Gastrointestinal (Abdomen): Inspection/Auscultation: + abdomen distended and normal bowel sounds Percussion/Palpation: abdomen soft; abdomen nontender Musculoskeletal: No acute arthritis in any joint Skin: Chronic skin changes in the legs Neurologic: Alert, awake and oriented x3 Psychiatric: A+Ox3, euthymic affect Lymphatic: no cervical or axillary lymphadenopathy Principal Diagnosis COPD exacerbation, COVID-19 infection(status post vaccination) sleep apnea on BIPAP Discharge Exam Lying in bed with minimal shortness of breath Constitutional well developed, well nourished, + ill appearing and + morbidly obese Eyes PERRL, conjunctivae normal, anicteric sclerae ENMT external ear and nose normal, oropharynx normal Neck trachea midline, no thyromegaly Respiratory + respiratory distress (Minimal distress at rest) and + cough Auscultation: + diminished lung sounds, + crackles (At the bases) and + wheezes (Minimal wheezing) Cardiovascular Rate/Rhythm: regular rate and regular rhythm; not tachycardic Heart Sounds: normal S1 and normal S2; no murmur Extremities: + edema (1+ edema bilaterally) Gastrointestinal (Abdomen) Inspection/Auscultation: + abdomen distended and normal bowel sounds Percussion/Palpation: abdomen soft; abdomen nontender Psychiatric A+Ox3, euthymic affect Lymphatic no cervical or axillary lymphadenopathy Discharge Data Allergies Allergy/AdvReac Type Severity Reaction Status Date / Time No Known Allergies Allergy Verified 08/28/21 14:22 Consultations 08/28/21 15:38 ED Decision to Admit Stat Hospital Course (1) COPD (chronic obstructive pulmonary disease): History of COPD and sleep apnea Likely has exacerbation due to COVID-19 infection No definite pneumonia in x-ray Saturating reasonably well on room air Uses oxygen at 5 L with CPAP at night and 2 to 2.5 L on ambulation Dexamethasone has been started for COPD exacerbation and also treatment for Covid 19 infection His inhalers and other medications will be continued He has been stable and has not been requiring any oxygen to maintain saturation If he does not require any oxygen during the next 24 hours and remains at his baseline with activity he will be discharged home He does not require any oxygen at rest to maintain saturation and has minimal cough PT has been ordered and if he does well with that he will be discharged home this afternoon or tomorrow He did very well with physical therapy and will be discharged home this aftern oon He denies any symptoms as of this morning (2) COVID-19: He is vaccinated for COVID-19 Awaiting CRP and prolactin level His CRP and prolactin level are not elevated enough to start any treatment As above Remained on room air since admission (3) Hypertension: Remains on the upper side We will continue current medication (4) Hypothyroidism: Continue supplement (5) GERD (gastroesophageal reflux disease): Continue PPI and H2 blockade (6) Benign prostatic hypertrophy: Continue current medication (7) Diabetes mellitus, type 2: Will continue insulin as he has been taking at home We will check hemoglobin A1c (8) Sleep apnea: Continue BiPAP at night with settings and oxygen level is at home Patient can use his own BiPAP (9) History of DVT (deep vein thrombosis): INR is therapeutic at 2.0 Continue Coumadin (10) History of pulmonary embolism: As above (11) Dyslipidemia: Continue statin (12) History of meningioma: No acute findings (13) Systolic CHF, chronic: We will hold oral Lasix and spironolactone Give Lasix intravenously while in the hospital (14) S/P TURP (transurethral resection of prostate): No acute symptoms (15) Status post craniotomy: Secondary to meningioma DVT prophylaxis On Coumadin CODE STATUS Conditional code-resuscitation without intubation Will be discharged home this afternoon Total Time Total Time Spent Total Time Spent (In Minutes): 35 minutes Discharge Plan Discharge Items Patient Disposition: Home - Self-Care Reason For Visit: COPD EXACERBATION, COVID 19 INFECTION Discharge Diagnosis: COPD exacerbation, COVID-19 infection(status post vaccination) sleep apnea on BIPAP Condition on Discharge: Fair Activity: Resume your previous activity Non-emergency contact: Primary Care Provider Call non-emergency contact if: you have any medication questions Follow-up/Referrals: Charan Anderson MD [Primary Care Provider] - (Date & Time 09/04/2021 9:00 AM Provider Emmanuel Salguero PA-C Department General Internal Medicine [facility] PLEASE NOTE THAT THIS IS A TELEMEDICINE VIDEO APPOINTMENT. PLEASE FOLLOW THE INSTRUCTIONS PROVIDED IN YOUR EMAIL. IF YOU HAVE ANY QUESTIONS REGARDING YOUR APPOINTMENT, PLEASE CALL ) Diet: Carb Consistent or DM2 Addtl Attending Provider Instructions: Please take precautions to avoid falls Finish the course of dexamethasone as advised Please keep taking your oxygen as prescribed before Please make a follow-up appointment with coagulation clinic within 2 to 3 days You need to be in isolation as per instruction below for the next 6 days: Home Isolation COVID-19 Instructions The following information about Home Isolation is from the CDC Website: https://www.cdc.gov/coronavirus/2019-ncov/hcp/dmyuwsht-eeulhrs-eloalv.html Stay home except to get medical care People who are mildly ill with COVID-19 are able to isolate at home during their illness. You should restrict activities outside your home, except for getting medical care. Do not go to work, school, or public areas. Avoid using public transportation, ride-sharing, or taxis. Separate yourself from other people and animals in your home People: As much as possible, you should stay in a specific room and away from other people in your home. Also, you should use a separate bathroom, if available. Animals: You should restrict contact with pets and other animals while you are sick with COVID-19, just like you would around other people. Although there have not been reports of pets or other animals becoming sick with COVID-19, it is still recommended that people sick with COVID-19 limit contact with animals until more information is known about the virus. When possible, have another member of your household care for your animals while you are sick. If you are sick with COVID-19, avoid contact with your pet, including petting, snuggling, being kissed or licked, and sharing food. If you must care for your pet or be around animals while you are sick, wash your hands before and after you interact with pets and wear a face mask. Call ahead before visiting your doctor If you have a medical appointment, call the healthcare provider and tell them that you have or may have COVID-19. This will help the healthcare providers office take steps to keep other people from getting infected or exposed. Wear a face mask You should wear a face mask when you are around other people (e.g., sharing a room or vehicle) or pets and before you enter a healthcare providers office. If you are not able to wear a face mask (for example, because it causes trouble breathing), then people who live with you should not stay in the same room with you, or they should wear a face mask if they enter your room. Cover your coughs and sneezes Cover your mouth and nose with a tissue when you cough or sneeze. Throw used tissues in a lined trash can. Immediately wash your hands with soap and water for at least 20 seconds or, if soap and water are not available, clean your hands with an alcohol-based hand printed circuit board preassembler that contains at least 60% alcohol. Clean your hands often Wash your hands often with soap and water for at least 20 seconds, especially after blowing your nose, coughing, or sneezing; going to the bathroom; and before eating or preparing food. If soap and water are not readily available, use an alcohol-based hand printed circuit board preassembler with at least 60% alcohol, covering all surfaces of your hands and rubbing them together until they feel dry. Soap and water are the best option if hands are visibly dirty. Avoid touching your eyes, nose, and mouth with unwashed hands. Avoid sharing personal household items You should not share dishes, drinking glasses, cups, eating utensils, towels, or bedding with other people or pets in your home. After using these items, they should be washed thoroughly with soap and water. Clean all high-touch surfaces everyday High touch surfaces include counters, tabletops, doorknobs, bathroom fixtures, toilets, phones, keyboards, tablets, and bedside tables. Also, clean any surfaces that may have blood, stool, or body fluids on them. Use a household cleaning spray or wipe, according to the label instructions. Labels contain instructions for safe and effective use of the cleaning product including precautions you should take when applying the product, such as wearing gloves and making sure you have good ventilation during use of the product. Monitor your symptoms Seek prompt medical attention if your illness is worsening (e.g., difficulty breathing).Beforeseeking care, call your healthcare provider and tell them that you have, or are being evaluated for, COVID-19. Put on a face mask before you enter the facility. These steps will help the healthcare providers office to keep other people in the office or waiting room from getting infected or exposed. Ask your healthcare provider to call the local or state health department. Persons who are placed under active monitoring or facilitated self- monitoring should follow instructions provided by their local health department or occupational health professionals, as appropriate. When working with your local health department check their available hours. If you have a medical emergency and need to call 911, notify the dispatch personnel that you have, or are being evaluated for COVID-19. If possible, put on a face mask before emergency medical services arrive. Discontinuing home isolation Patients with confirmed COVID-19 should remain under home isolation precautions until the risk of secondary transmission to others is thought to be low. The decision to discontinue home isolation precautions should be made on a [id number] basis, in consultation with healthcare providers and state and local health departments. Pending Studies at Discharge: No Stand-Alone Forms: My [facility], Smoking Cessation Medications and DC Order Prescriptions: New dexamethasone 6 mg tablet 6 mg PO DAILY Qty: 6 RF: 0 Continued multivitamin Tablet 1 tab PO QAM RF: 0 furosemide [Lasix] 40 mg Tablet 40 mg PO 3XWK RF: 0 terazosin 5 mg Capsule 5 mg PO BID RF: 0 bupropion HCl 150 mg Tablet Sustained-Release 12 Hr 150 mg PO BID RF: 0 carvedilol 25 mg Tablet 50 mg PO BID RF: 0 ipratropium-albuterol 0.5 mg-3 mg(2.5 mg base)/3 mL Solution For Nebulization 1 ml INHALATION QID PRN (Reason: Shortness Of Breath) RF: 0 Lantus U-100 Insulin 100 unit/mL Solution 70 unit SUBCUT BID RF: 0 acetaminophen 500 mg Tablet 500 mg PO Q6H PRN (Reason: Pain) RF: 0 spironolactone 25 mg Tablet 12.5 mg PO BID RF: 0 warfarin 3 mg tablet 9 mg PO 2XWK RF: 0 levothyroxine 100 mcg Tablet 100 mcg PO QAM RF: 0 warfarin 6 mg Tablet 6 mg PO 5XWK RF: 0 famotidine 20 mg Tablet 20 mg PO HS RF: 0 Novolin R Regular U-100 Insuln 100 unit/mL Solution 30 unit SUBCUT TID RF: 0 hydralazine 50 mg Tablet 50 mg PO TID RF: 0 clonidine 0.3 mg/24 hr Patch Weekly 1 patch transdermal WK RF: 0 furosemide [Lasix] 20 mg Tablet 20 mg PO 5XWK RF: 0 losartan 100 mg Tablet 100 mg PO QAM RF: 0 finasteride 5 mg Tablet 5 mg PO HS RF: 0 rosuvastatin 40 mg Tablet 40 mg PO HS RF: 0 Anoro Ellipta 62.5-25 mcg/actuation Blister With Device 1 inh INHALATION DAILY RF: 0 guaifenesin [Mucinex] 600 mg Tablet Extended Release 12hr 600 mg PO Q12H RF: 0 Senna Lax 1 tab PO HS RF: 0 nitroglycerin 1 patch transdermal QAM RF: 0 Discharge Orders: Discharge Order (Routine); Ordered 08/31/21 Ordered By: Maggi Sanchez Admission Data Admit Date/Time: 08/28/21 16:13 Attending Provider: Maggi Sanchez Admit Provider: Maggi Sanchez Primary Care Provider: Charan Anderson Other Providers: Maggi Sanchez Other Interventions: Discharge Summary Assessment (RN) Last Done: 08/31/21 14:06
[2021-09-01] MEDS ORDERED: cloNIDine HCL 0.3 MG/24 HR TRANSDERM SYS TD SCH (09:00)
== END 2021-08-31 17:18 | disposition home or self-care (01) | DRG 178 ==
LOC: ED 11:43 → 2S 16:13

== ENCOUNTER 2022-07-09 17:19 | Inpatient (IN) ==
--- NOTE | 2022-07-09 17:31 | ED Triage Note ---
Date of Service July 09, 2022 History of Present Illness This patient was briefly evaluated while in triage. An abbreviated physical exam was performed. This patient is a 76-year-old Male who presents to the ED for evaluation of a right ankle infection. Patient referred by his PCP due to an elevated CRP and concern that he may need antibiotics. He does have hardware in the ankle. Physical Exam VITALS: Vitals are noted on the nurse's note and reviewed by myself. GENERAL: This is a 76-year-old male, in no acute distress. RIGHT ANKLE: Erythema noted over the right ankle and distal calf with warmth and tenderness noted as well. Decreased range of motion of the ankle. NEURO: Patient was alert and oriented to person place and time. Initial orders for labs and / or imaging were placed and patient was placed in the waiting area until a bed is available. Please see further documentation for the full ED course.
[2022-07-09] MEDS ORDERED: cefTRIAXone SODIUM 2,000 MG/70 ML BAG IV STA (19:11)
--- NOTE | 2022-07-09 19:16 | Emergency Department Note ---
Impression & Plan Cellulitis of leg, right ED Provider Note NAME: TERESSA ROJAS AGE: 76 SEX: M : 1945 ARRIVES VIA: Walk-In INFORMANT: Patient, ED PROVIDER(S): Rodrigo Sandoval DO CHIEF COMPLAINT: Ankle swelling HPI: The patient is a 76-year-old male who presented to the emergency department with his significant other for an evaluation of swelling and redness around his right ankle. The patient noticed swelling and redness over the course of the last 3 days. He started having low-grade fever as well. He has been using Tylenol with some relief of his pain as well as fever. The patient was seen by the primary care physician and started on Keflex. He has a history of an ankle surgery in the past. X-rays were done which showed some swelling. There is concern that this could be involving the joint space and the patient was sent to the emergency department this evening for a CT with contrast to rule out infection. The patient has had no trauma. He notices pain in his foot as well as his calf. He has had no Doppler to rule out DVT. ROS: See above HPI for pertinent positives & negatives. A total of 10 systems reviewed and were otherwise negative. PAST MEDICAL HISTORY: See Below PAST SURGICAL HISTORY: See Below FAMILY HISTORY: See Below SOCIAL HISTORY: See Below HOME MEDICATIONS: See Below ALLERGIES: See Below VITALS: See Below PHYSICAL EXAMINATION: GENERAL: Patient is awake alert in no acute distress patient is resting comfortably and showing no signs of anxiety EYES: The conjunctivae are clear. The pupils are round and reactive. EARS, NOSE, MOUTH AND THROAT: The nose is without any evidence of any deformity. NECK: The neck is nontender and supple. RESPIRATORY: Normal respiratory effort is noted there is no evidence of wheezing rhonchi or rales CARDIOVASCULAR: Regular rate and rhythm noted there no murmurs rubs or gallops normal S1 normal S2. GASTROINTESTINAL: The abdomen is soft. Abdomen is nontender. MUSCULOSKELETAL/EXTREMITIES: There is no evidence of gross deformity full range of motion is noted in the hips and shoulders. SKIN: There was pedal edema noted especially in the right leg. There is erythema noted anteriorly. There was tenderness over the foot. Pulses were symmetric in both feet. NEUROLOGIC: Patient is awake alert and oriented x3 MEDICAL DECISION MAKING: The patient is a 76-year-old male who presented to the emergency department for an evaluation of lower extremity swelling and pain. The patient was diagnosed with cellulitis previously as an outpatient. He is been taking an oral antibiotic. He started to notice worsening symptoms including swelling and pain. He had an x-ray which did not show any acute disease because he has a history of previous surgery on that ankle. Because his symptoms were not improving he was sent to the emergency department this evening for further work- up and possibly CT to rule out surgical infection. The patient was treated with IV fluids and IV antibiotics in the emergency department. He was reevaluated multiple times. Because of his past medical history I also discussed his case with the on-call [facility] hospitalist. They have agreed to evaluate the patient in the emergency department for further management and disposition. Triage Nursing notes reviewed. Prior medical records reviewed Vital Signs: reviewed and remarkable for no significant abnormalities Differential diagnosis: Cellulitis, abscess, MRSA infection, DVT, necrotizing fasciitis, dermatitis, drug eruption, allergic reaction, as well as other pathologies. ER treatment provided: See below Diagnostics interpreted by me: ECG: none Cardiac Monitoring: An order was placed for continuous cardiac monitoring. The monitor shows a rate of 74 bpm with sinus rhythm. Laboratory studies: As stated above and show below. Imaging studies: See below Consultation(s): I discussed this case with Dr. Mcmahon is on-call for the [place] [facility] group. Past Med/Surg History Medical History Anticoagulated on warfarin COPD (chronic obstructive pulmonary disease) Diabetes mellitus, type 2 Hypertension Social History Smoking Status: Former smoker Second Hand Exposure: No; Do You Dip or Chew Tobacco: No; Hx Alcohol Use: Yes Alcohol type: beer Hx Substance Use: No Preferred Language: Marshallese Communication Ability: Effective [employer] Required: No Beliefs That Will Affect Care: None Current Living Situation: Spouse Other Information That Helps Us Care for You: No Feels Safe at Home: Yes Safety Concerns: Feels Safe At This Time Assistive Devices: CPAP Allergies Allergies Allergy/AdvReac Type Severity Reaction Status Date / Time No Known Allergies Allergy Verified 07/09/22 22:09 Home Meds Home Medications Medication Instructions Recorded Confirmed acetaminophen 500 mg tablet 1,000 mg PO Q6H PRN Pain 08/28/21 07/09/22 bupropion HCl 150 mg tablet,12 hr 150 mg PO BID 08/28/21 07/09/22 sustained-release carvedilol 25 mg tablet 50 mg PO BID 08/28/21 07/09/22 clonidine 0.3 mg/24 hr weekly 1 patch transdermal WK 08/28/21 07/09/22 transdermal patch famotidine 20 mg tablet 40 mg PO HS 08/28/21 07/09/22 finasteride 5 mg tablet 5 mg PO HS 08/28/21 07/09/22 furosemide 20 mg tablet (Lasix) 20 mg PO 5XWK 08/28/21 07/09/22 furosemide 40 mg tablet (Lasix) 40 mg PO 3XWK 08/28/21 07/09/22 hydralazine 50 mg tablet 50 mg PO TID 08/28/21 07/09/22 insulin glargine 100 unit/mL 30 unit subcut QAM 08/28/21 07/09/22 subcutaneous solution (Lantus U-100 Insulin) insulin regular human 100 unit/mL 0 unit subcut TIDM 08/28/21 07/09/22 injection solution (Novolin R Regular U-100 Insulin) ipratropium 0.5 mg-albuterol 3 mg 1 ml inhalation QID PRN Shortness 08/28/21 07/09/22 (2.5 mg base)/3 mL nebulization Of Breath soln levothyroxine 100 mcg tablet 100 mcg PO QAM 08/28/21 07/09/22 losartan 100 mg tablet 100 mg PO QAM 08/28/21 07/09/22 multivitamin 1 tab PO QAM 08/28/21 07/09/22 nitroglycerin 0.4 patch transdermal QAM 08/28/21 07/09/22 rosuvastatin 40 mg tablet 40 mg PO HS 08/28/21 07/09/22 spironolactone 25 mg tablet 12.5 mg PO DAILY 08/28/21 07/09/22 terazosin 5 mg capsule 5 mg PO BID 08/28/21 07/09/22 umeclidinium 62.5 mcg-vilanterol 1 inh inhalation DAILY 08/28/21 07/09/22 25 mcg/actuation powdr for inhalation (Anoro Ellipta) warfarin 3 mg tablet 9 mg PO WK 08/28/21 07/09/22 warfarin 6 mg tablet 6 mg PO 6XWK 08/28/21 07/09/22 allopurinol 300 mg tablet 300 mg PO DAILY 07/09/22 07/09/22 aspirin 81 mg tablet,delayed 81 mg PO DAILY 07/09/22 07/09/22 release cephalexin 500 mg capsule 500 mg PO QID 07/09/22 07/09/22 cholecalciferol (vitamin D3) 25 25 mcg PO DAILY 07/09/22 07/09/22 mcg (1,000 unit) tablet fluticasone propionate 50 2 spray intranasal DAILY 07/09/22 07/09/22 mcg/actuation nasal spray,suspension (Flonase Allergy Relief) glimepiride 2 mg tablet 2 mg PO QAM 07/09/22 07/09/22 insulin glargine 100 unit/mL 70 unit subcut QPM 07/09/22 07/09/22 subcutaneous solution (Lantus U-100 Insulin) sennosides 8.6 mg tablet (Senna 8.6 mg PO DAILY PRN Constipation 07/09/22 07/09/22 Lax) Results & Data (ED) Vital Signs Vital Signs - 24 hr 07/09/22 17:22 07/09/22 20:25 07/09/22 23:40 Temperature 36.9 C Temperature Source Temporal Artery Scan Pulse Rate 73 Pulse Rate [Finger] 74 70 Respiratory Rate 16 18 20 Respiratory Effort / Characteristics Non-Labored Spontaneous Respiratory Depth Normal Blood Pressure 158/84 H Blood Pressure [Right Arm] 134/76 119/81 Blood Pressure Mean 108 Blood Pressure Mean [Right Arm] 95 93 Pulse Oximetry 92 93 94 Oxygen Delivery Method Room Air Room Air Sepsis Recent Fever Within 48 Hours No Sepsis New/Unexplained Change in Mental Status N/A Sepsis Action Taken by Nursing No Action Required Home Medications Current Medication List: was personally reviewed by me Laboratory Data Attestation: I reviewed the patient's lab results. Result diagrams: 07/10/22 05:47 07/10/22 05:47 Lab Results 07/09/22 07/09/22 07/09/22 Range/Units 19:30 19:30 19:30 WBC 8.53 (4.8-10.8) K/ul RBC 4.56 L (4.63-6.08) M/uL Hgb 13.8 L (14.0-18.0) g/dl Hct 42.3 (40.1-51.0) % MCV 92.8 (80.0-100.0) fL MCH 30.3 (25.0-34.0) pg MCHC 32.6 (32.0-36.0) g/dL RDW Std Deviation 50.8 H (36.4-46.3) fL RDW Coeff of Gucci 14.9 H (11.5-14.5) % Plt Count 145 (130-400) K/uL MPV 10.6 (9.4-12.4) fL Immature Gran % (Auto) 0.2 % Neut % (Auto) 71.7 % Lymph % (Auto) 18.8 % Cuming % (Auto) 8.4 % Eos % (Auto) 0.4 % Baso % (Auto) 0.5 % Neut # (Auto) 6.12 (1.4-6.5) K/uL Lymph # (Auto) 1.60 (1.2-3.4) K/uL Cuming # (Auto) 0.72 (0.24-0.82) K/uL Eos # (Auto) 0.03 (0-0.50) K/uL Baso # (Auto) 0.04 (0-0.2) K/uL Immature Gran # (Auto) 0.02 (0.00-0.02) K/uL PT (9.0-12.0) Seconds INR (0.9-1.1) APTT (21.0-31.0) Seconds PTT Ratio Sodium 139 (136-145) mmol/L Potassium 3.9 (3.5-5.1) mmol/L Chloride 106 (98-107) mmol/L Carbon Dioxide 25 (21-32) mmol/L Anion Gap 8 (3-11) BUN 29 H (6-23) mg/dl Creatinine 1.80 H (0.6-1.4) mg/dl Est Cr Clr Drug Dosing 52.7 ml/min Est GFR ( Amer) 41.4 ml/min Est GFR (Non-Af Amer) 35.8 ml/min BUN/Creatinine Ratio 16.1 (10-20) Glucose 72 (70-99(Fasting)) mg/dl Lactate (0.4-2.0) mmol/L Calcium 9.3 (8.5-10.1) mg/dl Total Bilirubin 0.9 (0.2-1.0) mg/dl AST 30 (13-39) U/L ALT 31 (7-52) U/L Alkaline Phosphatase 62 (34-104) U/L C-Reactive Protein 17.60 H (0-0.5) mg/dl Total Protein 6.8 (6.0-8.3) gm/dl Albumin 3.8 (3.4-5.0) gm/dl Globulin 3.0 (2.5-4.0) gm/dl Albumin/Globulin Ratio 1.3 (0.9-2) Procalcitonin 0.06 (0-0.5) ng/ml SARS-CoV-2, RNA, NAAT (NEGATIVE) 07/09/22 07/09/22 07/09/22 Range/Units 19:30 20:05 22:52 WBC (4.8-10.8) K/ul RBC (4.63-6.08) M/uL Hgb (14.0-18.0) g/dl Hct (40.1-51.0) % MCV (80.0-100.0) fL MCH (25.0-34.0) pg MCHC (32.0-36.0) g/dL RDW Std Deviation (36.4-46.3) fL RDW Coeff of Gucci (11.5-14.5) % Plt Count (130-400) K/uL MPV (9.4-12.4) fL Immature Gran % (Auto) % Neut % (Auto) % Lymph % (Auto) % Cuming % (Auto) % Eos % (Auto) % Baso % (Auto) % Neut # (Auto) (1.4-6.5) K/uL Lymph # (Auto) (1.2-3.4) K/uL Cuming # (Auto) (0.24-0.82) K/uL Eos # (Auto) (0-0.50) K/uL Baso # (Auto) (0-0.2) K/uL Immature Gran # (Auto) (0.00-0.02) K/uL PT 19.8 H (9.0-12.0) Seconds INR 1.9 H (0.9-1.1) APTT 41.9 H (21.0-31.0) Seconds PTT Ratio 1.5 Sodium (136-145) mmol/L Potassium (3.5-5.1) mmol/L Chloride (98-107) mmol/L Carbon Dioxide (21-32) mmol/L Anion Gap (3-11) BUN (6-23) mg/dl Creatinine (0.6-1.4) mg/dl Est Cr Clr Drug Dosing ml/min Est GFR ( Amer) ml/min Est GFR (Non-Af Amer) ml/min BUN/Creatinine Ratio (10-20) Glucose (70-99(Fasting)) mg/dl Lactate 0.6 (0.4-2.0) mmol/L Calcium (8.5-10.1) mg/dl Total Bilirubin (0.2-1.0) mg/dl AST (13-39) U/L ALT (7-52) U/L Alkaline Phosphatase (34-104) U/L C-Reactive Protein (0-0.5) mg/dl Total Protein (6.0-8.3) gm/dl Albumin (3.4-5.0) gm/dl Globulin (2.5-4.0) gm/dl Albumin/Globulin Ratio (0.9-2) Procalcitonin (0-0.5) ng/ml SARS-CoV-2, RNA, NAAT NEGATIVE (NEGATIVE) Administered Medications Allopurinol (Allopurinol 300 Mg Tab) 300 mg PO DAILY MARVIN Stop: 08/09/22 08:59 Last Admin: 07/10/22 08:23 Dose: 300 mg Documented By: MG Aspirin (Aspirin 81 Mg Ectab) 81 mg PO DAILY MARVIN Stop: 08/09/22 08:59 Last Admin: 07/10/22 08:22 Dose: 81 mg Documented By: MG Bupropion HCl (Bupropion Sr 150 Mg Tabcr) 150 mg PO BID MARVIN Stop: 08/09/22 03:12 Last Admin: 07/10/22 08:24 Dose: 150 mg Documented By: Admin: 07/10/22 04:02 Dose: 150 mg Documented By: KJL Carvedilol (Carvedilol 25 Mg Tab) 50 mg PO BID MARVIN Stop: 08/09/22 08:59 Last Admin: 07/10/22 08:23 Dose: 50 mg Documented By: MG Doxycycline Hyclate (Doxycycline Hyclate 100 Mg Cap) 100 mg PO BID MARVIN Stop: 07/17/22 08:59 Last Admin: 07/10/22 08:22 Dose: 100 mg Documented By: MG Fluticasone Propionate (Fluticasone Propionate Na Spr 16 Gm Btl) 2 sprays NA DAILY MARVIN Stop: 08/09/22 08:59 Last Admin: 07/10/22 08:24 Dose: 2 sprays Documented By: MG Furosemide (Furosemide 20 Mg Tab) 20 mg PO SuTuThSa@0900 MARVIN Stop: 08/09/22 08:59 Last Admin: 07/10/22 08:22 Dose: 20 mg Documented By: MG Hydralazine HCl (Hydralazine Tab 50 Mg Tab) 50 mg PO TID MARVIN Stop: 08/09/22 08:59 Last Admin: 07/10/22 08:20 Dose: 50 mg Documented By: MG Insulin Aspart (Insulin Aspart Per Unit) 0 units SC ACHS [facility] Stop: 08/09/22 03:12 Last Admin: 07/10/22 08:18 Dose: 3 units Documented By: Co-signed By: KRISTEN Admin: 07/10/22 03:46 Dose: Not Given Documented By: EMMY Insulin Glargine (Lantus Per Unit Charge) 40 units SQ BID MARVIN Stop: 08/09/22 08:59 Last Admin: 07/10/22 08:34 Dose: 40 units Documented By: Co-signed By: KRISTEN Levothyroxine Sodium (Levothyroxine Sodium 100 Mcg Tablet) 100 mcg PO DAILYBB [facility] Stop: 08/09/22 06:29 Last Admin: 07/10/22 06:24 Dose: 100 mcg Documented By: EMMY Losartan Potassium (Losartan Potassium 50 Mg Tab) 100 mg PO QAM [facility] Stop: 08/09/22 08:59 Last Admin: 07/10/22 08:23 Dose: 100 mg Documented By: Miscellaneous (Check Clonidine Patch Placement) 1 each N/A QS MARVIN Stop: 08/09/22 07:59 Last Admin: 07/10/22 08:11 Dose: 1 each Documented By: Multivitamins (Multivitamin Tab) 1 tab PO QAM [facility] Stop: 08/09/22 08:59 Last Admin: 07/10/22 08:21 Dose: 1 tab Documented By: MG Nitroglycerin (Nitroglycerin 0.4 Mg/Hr Patch) 1 patch TD QAM [facility]VIN Stop: 08/09/22 08:59 Last Admin: 07/10/22 08:28 Dose: 1 patch Documented By: MG Sennosides (Senna 8.6 Mg Tab) 8.6 mg PO DAILY PRN PRN Reason: Constipation Stop: 08/09/22 03:12 Last Admin: 07/10/22 08:21 Dose: 8.6 mg Documented By: MG Terazosin HCl (Terazosin Hcl 5 Mg Cap) 5 mg PO BID MARVIN Stop: 08/09/22 08:59 Last Admin: 07/10/22 08:22 Dose: 5 mg Documented By: MG Umeclidinium/Vilanterol (Umeclidinium/Vilanterol 62.5/25mcg 7 Puffs/Inhaler) 1 puffs INH DAILY MARVIN Stop: 08/09/22 08:59 Last Admin: 07/10/22 08:24 Dose: 1 puffs Documented By: MG Discontinued Medications Carvedilol (Carvedilol 12.5 Mg Tab) 12.5 mg PO NOW ONE Stop: 07/10/22 03:14 Last Admin: 07/10/22 04:02 Dose: 12.5 mg Documented By: LULU Ceftriaxone Sodium (Rocephin) 2,000 mg in 70 mls @ 140 mls/hr IV NOW STA Stop: 07/09/22 19:40 Last Infusion: 07/09/22 20:59 Dose: 0 mls/hr Documented By: Admin: 07/09/22 20:14 Dose: 140 mls/hr Documented By: DIANA Sodium Chloride (Nss 1000ml) 1,000 mls @ 999 mls/hr IV .Q1H1M ONE Stop: 07/09/22 23:32 Last Infusion: 07/10/22 01:54 Dose: 0 mls/hr Documented By: Admin: 07/09/22 23:36 Dose: 999 mls/hr Documented By: DIANA Doxycycline Hyclate 100 mg/ (Dextrose) 110 mls @ 50 mls/hr IV NOW STA Stop: 07/10/22 01:08 Last Infusion: 07/10/22 01:53 Dose: 0 mls/hr Documented By: Admin: 07/09/22 23:36 Dose: 50 mls/hr Documented By: DIANA Warfarin Sodium (Warfarin Sod 6 Mg Tab) 6 mg PO NOW STA Stop: 07/09/22 23:52 Last Admin: 07/10/22 00:37 Dose: 6 mg Documented By: DIANA Imaging Data Radiologist's Impression: Ankle CT 07/09/22 19:11 CT OF THE RIGHT ANKLE WITH CONTRAST CLINICAL HISTORY: Right ankle pain. Possible infection. COMPARISON STUDY: Right ankle radiographs March 22, 2014. TECHNIQUE: Axial images of the right ankle were obtained following intravenous injection of Optiray 300 IV. Sagittal and coronal reconstructions were viewed. Automated exposure control was utilized for the study. A dose lowering technique was utilized adhering to the principles of ALARA. FINDINGS: There are postoperative findings consistent with open reduction and internal fixation of the distal right fibular fracture with plate and screws. The hardware is intact. Healed fracture is noted. No lucency is noted to suggest loosening. There is no evidence for acute osteomyelitis within the right ankle. No soft tissue gas is present. There is moderate subcutaneous edema of the right ankle and visualized portions of the right foot. There is no rim-enhancing fluid collection to suggest an abscess. A few well-corticated ossicles adjacent to the medial malleolus are chronic. 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 Tibiotalar and subtalar joints are intact. There is mild osteoarthritis of these articulations. IMPRESSION: 1. Status post distal right fibular internal fixation with plate and screws. Hardware intact. No lucency to suggest loosening. Healed distal right fibular fracture. 2. Moderate subcutaneous edema of the right ankle and visualized portions of the right foot. Lateral ankle skin thickening. This could reflect or cellulitis or edema. No fluid collection to suggest abscess. No soft tissue gas. ACT 112: Negative or not required by law. Electronically signed by: Christian Maradiaga M.D. 07/10/2022 8:43 AM Venous Doppler Study 07/09/22 19:15 US venous doppler LE RT HISTORY: 76 years-old Male sent by PCP acute pain and swelling of the right lower extremity COMPARISON: 01/30/2008 TECHNIQUE: Multiple real-time sonographic images of the right lower extremity deep venous structures were obtained assessing grayscale appearance, color and spectral flow. FINDINGS: Normal flow, compressibility, phasicity and augmentation. IMPRESSION: No sonographic evidence of deep venous thrombosis. ACT 112: Negative or not required by law. The above report was generated using voice recognition software. It may contain grammatical, syntax or spelling errors. Electronically signed by: Harrison Wolfe M.D. 07/10/2022 6:33 AM Chest X-Ray 07/09/22 23:37 XR chest 1V portable CLINICAL HISTORY: Shortness of breath. COMPARISON STUDY: Chest radiograph August 28, 2021. FINDINGS: No pneumothorax or pleural effusion is present. Linear left lower lung opacities favor scarring. Cardiomegaly is unchanged. No evidence for pulmonary edema. The appearance of the chest is similar to prior exams. IMPRESSION: No acute cardiopulmonary findings. No significant change in appearance of the chest. ACT 112: Negative or not required by law. Electronically signed by: Christian Maradiaga M.D. 07/10/2022 8:20 AM Discharge Plan Visit Data Chief Complaint: Infection Stated Complaint: R ANKLE INFECTION, FEVER ED Provider: Rodrigo Sandoval Discharge Problem: Cellulitis of leg, right Patient Disposition: Admitted As Inpatient Discharge Instructions Interventions: ED Discharge Assessment Last Done: 07/10/22 02:51
[2022-07-09 19:53] LABS: Basophils # (auto) 0.04 K/uL (0-0.2); Basophils % (auto) 0.5 %; Eosinophils # (auto) 0.03 K/uL (0-0.50); Eosinophils % (auto) 0.4 %; Hematocrit (blood only) 42.3 % (40.1-51.0); Hemoglobin 13.8 g/dl (14.0-18.0); Immature Granulocytes # (auto) 0.02 K/uL (0.00-0.02); Immature Granulocytes % (auto) 0.2 %; Lymphocytes % (auto) 18.8 %; Mean Corpuscular Hemoglobin 30.3 pg (25.0-34.0); Mean Corpuscular Hgb Conc 32.6 g/dL (32.0-36.0); Mean Corpuscular Volume 92.8 fL (80.0-100.0); Mean Platelet Volume 10.6 fL (9.4-12.4); Monocytes # (auto) 0.72 K/uL (0.24-0.82); Monocytes % (auto) 8.4 %; Neutrophils # (auto) 6.12 K/uL (1.4-6.5); Neutrophils % (auto) 71.7 %; Platelet Count 145 K/uL (130-400); RDW Coefficient of Variation 14.9 % (11.5-14.5); RDW Standard Deviation 50.8 fL (36.4-46.3); Red Blood Count 4.56 M/uL (4.63-6.08); White Blood Count 8.53 K/ul (4.8-10.8)
[2022-07-09 20:14] LABS: INR 1.9 (0.9-1.1); Partial Thromboplastin Ratio 1.5; Partial Thromboplastin Time 41.9 Seconds (21.0-31.0); Prothrombin Time 19.8 Seconds (9.0-12.0)
[2022-07-09 20:22] LABS: Albumin Globulin Ratio 1.3 (0.9-2); Albumin Level 3.8 gm/dl (3.4-5.0); BUN Creatinine Ratio 16.1 (10-20); Bilirubin,Total 0.9 mg/dl (0.2-1.0); C Reactive Protein 17.6 mg/dl (0-0.5); Calcium 9.3 mg/dl (8.5-10.1); Creatinine Clr Calc Pharmacy 52.7 ml/min; Est GFR (African American) 41.4 ml/min; Est GFR (Non-African American) 35.8 ml/min; Potassium 3.9 mmol/L (3.5-5.1); Total Protein 6.8 gm/dl (6.0-8.3)
[2022-07-09] MEDS ORDERED: SODIUM CHLORIDE 0.9% 1000ML 1,000 ML IV ONE (22:32)
[2022-07-09] MEDS ORDERED: DOXYCYCLINE HYCLATE 100 MG in DEXTROSE 5% 100 ML IV STA (22:57)
--- NOTE | 2022-07-09 23:38 | History & Physical Report ---
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 Secondary to kidney dysfunction, FOBT done at the ER was negative past tobacco abuse GMF Doxycycline Add agent with amplified gram-negative coverage if without improvement Local measures for RLE cellulitis Basal bolus insulin ISS BG goal 1 10-1 40, carb count coverage, update hemoglobin A1c DVT prophylaxis. Coumadin INR goal between 2 and 3 Full code Text document was generated using [employer] voice recognition software. It may contain grammatical or spelling errors. Kindly contact undersigned for clarification of any documentation item in question. History of Present Illness Chief Complaint: Worsening right leg swelling Primary Care Provider: Charan Anderson MD History obtained from patient and records. 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 Last confinement August 2021 for COPD exacerbation secondary to COVID-19 infection. 3 days history of right ankle pain, fever, swelling. Recollection of recent trauma. History of right ankle surgery in 2013 complicated by poor healing. Patient seen at PCPs office 2 days ago. Keflex prescribed for RLE cellulitis. Outpatient right ankle x-ray showed diffuse soft tissue swelling without osteomyelitis. CRP noted to be elevated. Worsening swelling despite compliance with first 2 doses of Keflex. Low-grade fever at home. Chest pain. Usual shortness of breath on exertion. Patient directed to ER by outpatient provider for further evaluation. Patient given Ceftriaxone at the ER. Medical History as above Surgical History : Ankle fracture surgery, cataract surgery, cystoscopy, laparoscopic hernia repair, meningioma removal, skin cancer surgery, vascular procedure, blepharoplasty, skin grafting, knee cyst removal Family History : Alcoholism, lymphoma, DM, heart disease Personal/Social history : Past tobacco abuse, occasional EtOH intake, retired truck mechanic apprentice Allergies Allergy/AdvReac Type Severity Reaction Status Date / Time No Known Allergies Allergy Verified 07/09/22 22:09 Home Medications Medication Instructions Recorded Confirmed Type acetaminophen 500 mg tablet 1,000 mg PO Q6H PRN Pain 08/28/21 07/09/22 History bupropion HCl 150 mg tablet,12 hr 150 mg PO BID 08/28/21 07/09/22 History sustained-release carvedilol 25 mg tablet 50 mg PO BID 08/28/21 07/09/22 History clonidine 0.3 mg/24 hr weekly 1 patch transdermal WK 08/28/21 07/09/22 History transdermal patch famotidine 20 mg tablet 40 mg PO HS 08/28/21 07/09/22 History finasteride 5 mg tablet 5 mg PO HS 08/28/21 07/09/22 History furosemide 20 mg tablet (Lasix) 20 mg PO 5XWK 08/28/21 07/09/22 History furosemide 40 mg tablet (Lasix) 40 mg PO 3XWK 08/28/21 07/09/22 History hydralazine 50 mg tablet 50 mg PO TID 08/28/21 07/09/22 History insulin glargine 100 unit/mL 30 unit subcut QAM 08/28/21 07/09/22 History subcutaneous solution (Lantus U-100 Insulin) insulin regular human 100 unit/mL 0 unit subcut TIDM 08/28/21 07/09/22 History injection solution (Novolin R Regular U-100 Insulin) ipratropium 0.5 mg-albuterol 3 mg 1 ml inhalation QID PRN Shortness 08/28/21 07/09/22 History (2.5 mg base)/3 mL nebulization Of Breath soln levothyroxine 100 mcg tablet 100 mcg PO QAM 08/28/21 07/09/22 History losartan 100 mg tablet 100 mg PO QAM 08/28/21 07/09/22 History multivitamin 1 tab PO QAM 08/28/21 07/09/22 History nitroglycerin 0.4 patch transdermal QAM 08/28/21 07/09/22 History rosuvastatin 40 mg tablet 40 mg PO HS 08/28/21 07/09/22 History spironolactone 25 mg tablet 12.5 mg PO DAILY 08/28/21 07/09/22 History terazosin 5 mg capsule 5 mg PO BID 08/28/21 07/09/22 History umeclidinium 62.5 mcg-vilanterol 1 inh inhalation DAILY 08/28/21 07/09/22 History 25 mcg/actuation powdr for inhalation (Anoro Ellipta) warfarin 3 mg tablet 9 mg PO WK 08/28/21 07/09/22 History warfarin 6 mg tablet 6 mg PO 6XWK 08/28/21 07/09/22 History allopurinol 300 mg tablet 300 mg PO DAILY 07/09/22 07/09/22 History aspirin 81 mg tablet,delayed 81 mg PO DAILY 07/09/22 07/09/22 History release cephalexin 500 mg capsule 500 mg PO QID 07/09/22 07/09/22 History cholecalciferol (vitamin D3) 25 25 mcg PO DAILY 07/09/22 07/09/22 History mcg (1,000 unit) tablet fluticasone propionate 50 2 spray intranasal DAILY 07/09/22 07/09/22 History mcg/actuation nasal spray,suspension (Flonase Allergy Relief) glimepiride 2 mg tablet 2 mg PO QAM 07/09/22 07/09/22 History insulin glargine 100 unit/mL 70 unit subcut QPM 07/09/22 07/09/22 History subcutaneous solution (Lantus U-100 Insulin) sennosides 8.6 mg tablet (Senna 8.6 mg PO DAILY PRN Constipation 07/09/22 07/09/22 History Lax) Past Med/Surg History Medical History Anticoagulated on warfarin COPD (chronic obstructive pulmonary disease) Diabetes mellitus, type 2 Hypertension Social History Smoking Status: Former smoker Second Hand Exposure: No; Do You Dip or Chew Tobacco: No; Hx Alcohol Use: Yes Alcohol type: beer Hx Substance Use: No Preferred Language: Turkish Communication Ability: Effective Property Insurance Inspector Required: No Beliefs That Will Affect Care: None Current Living Situation: Spouse Other Information That Helps Us Care for You: No Feels Safe at Home: Yes Safety Concerns: Feels Safe At This Time Assistive Devices: CPAP Review of Systems Review of Systems: As per HPI, all other systems reviewed and negative Physical Exam Physical Exam: GENERAL: Comfortable, occasional SOB during speech, morbidly obese, pleasant, no respiratory distress SKIN: Normal color, warm HEENT: [place] palpebral conjunctivae, no ptosis, dry buccal mucosa NECK : Supple, short neck, no tenderness CHEST : Decreased breath sounds, no tenderness HEART : RRR, no obvious murmurs ABDOMEN: Marked distention, nontender RECTAL : Intact sphincter, brown stool (FOBT negative) EXTREMITIES : Tender RLE induration, no other conspicuous deformities noted NEUROLOGIC : Coherent, no facial asymmetry, no other gross focality Results & Data Results & Data ([facility]) Vital Signs (Past 12 Hours) Vital Signs Temp Pulse Pulse Resp BP BP Pulse Ox 07/09/22 20:25 74 18 134/76 93 07/09/22 17:22 36.9 C 73 16 158/84 H 92 O2 Del Method 07/09/22 20:25 Room Air 07/09/22 17:22 Room Air Laboratory Results Laboratory Results WBC 8.53 K/ul (4.8-10.8) 07/09/22 19:30 RBC 4.56 M/uL (4.63-6.08) L 07/09/22 19:30 Hgb 13.8 g/dl (14.0-18.0) L 07/09/22 19:30 Hct 42.3 % (40.1-51.0) 07/09/22 19:30 MCV 92.8 fL (80.0-100.0) 07/09/22 19:30 MCH 30.3 pg (25.0-34.0) 07/09/22 19:30 MCHC 32.6 g/dL (32.0-36.0) 07/09/22 19:30 RDW Std Deviation 50.8 fL (36.4-46.3) H 07/09/22 19:30 RDW Coeff of Gucci 14.9 % (11.5-14.5) H 07/09/22 19:30 Plt Count 145 K/uL (130-400) 07/09/22 19:30 MPV 10.6 fL (9.4-12.4) 07/09/22 19:30 Immature Gran % (Auto) 0.2 % 07/09/22 19:30 Neut % (Auto) 71.7 % 07/09/22 19:30 Lymph % (Auto) 18.8 % 07/09/22 19:30 Rock % (Auto) 8.4 % 07/09/22 19:30 Eos % (Auto) 0.4 % 07/09/22 19:30 Baso % (Auto) 0.5 % 07/09/22:30 Neut # (Auto) 6.12 K/uL (1.4-6.5) 07/09/22 19:30 Lymph # (Auto) 1.60 K/uL (1.2-3.4) 07/09/22 19:30 Rock # (Auto) 0.72 K/uL (0.24-0.82) 07/09/22 19:30 Eos # (Auto) 0.03 K/uL (0-0.50) 07/09/22 19:30 Baso # (Auto) 0.04 K/uL (0-0.2) 07/09/22 19:30 Immature Gran # (Auto) 0.02 K/uL (0.00-0.02) 07/09/22 19:30 PT 19.8 Seconds (9.0-12.0) H 07/09/22 19:30 INR 1.9 (0.9-1.1) H 07/09/22 19:30 APTT 41.9 Seconds (21.0-31.0) H 07/09/22:30 PTT Ratio 1.5 07/09/22 19:30 Sodium 139 mmol/L (136-145) 07/09/22 19:30 Potassium 3.9 mmol/L (3.5-5.1) 07/09/22 19:30 Chloride 106 mmol/L (98-107) 07/09/22 19:30 Carbon Dioxide 25 mmol/L (21-32) 07/09/22:30 Anion Gap 8 (3-11) 07/09/22 19:30 BUN 29 mg/dl (6-23) H 07/09/22 19:30 Creatinine 1.80 mg/dl (0.6-1.4) H 07/09/22 19:30 Est Cr Clr Drug Dosing 52.7 ml/min 07/09/22 19:30 Est GFR ( Amer) 41.4 ml/min 07/09/22 19:30 Est GFR (Non-Af Amer) 35.8 ml/min 07/09/22 19:30 BUN/Creatinine Ratio 16.1 (10-20) 07/09/22 19:30 Glucose 72 mg/dl (70-99(Fasting)) 07/09/22 19:30 Lactate 0.6 mmol/L (0.4-2.0) 07/09/22 20:05 Calcium 9.3 mg/dl (8.5-10.1) 07/09/22 19:30 Total Bilirubin 0.9 mg/dl (0.2-1.0) 07/09/22 19:30 AST 30 U/L (13-39) 07/09/22 19:30 ALT 31 U/L (7-52) 07/09/22 19:30 Alkaline Phosphatase 62 U/L (34-104) 07/09/22 19:30 C-Reactive Protein 17.60 mg/dl (0-0.5) H 07/09/22 19:30 Total Protein 6.8 gm/dl (6.0-8.3) 07/09/22 19:30 Albumin 3.8 gm/dl (3.4-5.0) 07/09/22 19:30 Globulin 3.0 gm/dl (2.5-4.0) 07/09/22 19:30 Albumin/Globulin Ratio 1.3 (0.9-2) 07/09/22 19:30 Procalcitonin 0.06 ng/ml (0-0.5) 07/09/22 19:[address] right ankle initial read: No fracture or dislocation Patient status post ORIF of a distal right fibular fracture. The fibular screws appear well seated without lucency/loosening that would suggest hardware infection. No evidence for joint effusion Diffuse subcutaneous stranding mayreflect surrounding edema and/or cellulitis. If cellulitis there is no evidence for gas to suggest necrotizing infection. No discrete abscess is present RLE venous Dopplers initial read: No evidence of deep venous thrombosis Chest x-ray as per my interpretation : Atelectasis, cardiomegaly
[2022-07-09] MEDS ORDERED: WARFARIN SOD 6 MG TAB PO STA (23:51)
[2022-07-10] MEDS ORDERED: PROMETHAZINE HCL 12.5 MG in SODIUM CHLORIDE 0.9% 50 ML IV PRN (03:13)
[2022-07-10] MEDS ORDERED: traMADol HCL 50 MG TABLET PO PRN (03:13)
[2022-07-10] MEDS ORDERED: GLUCOSE 40% GEL 15 GM TUBE PO PRN (03:13)
[2022-07-10] MEDS ORDERED: DEXTROSE 50% 50 ML SYRINGE IV PRN (03:13)
[2022-07-10] MEDS ORDERED: GLUCOSE 10 TAB/TUBE PO PRN (03:13)
[2022-07-10] MEDS ORDERED: SENNA 8.6 MG TAB PO PRN (03:13)
[2022-07-10] MEDS ORDERED: carvediloL 12.5 MG TAB PO ONE (03:13)
[2022-07-10] MEDS ORDERED: ACETAMINOPHEN 325 MG TAB PO PRN (03:13)
[2022-07-10] MEDS ORDERED: CARBOHYDRATES FOR HYPOGLYCEMIA PO PRN (03:13)
[2022-07-10] MEDS ORDERED: GLUCAGON FOR INJ 1 MG VIAL SQ PRN (03:13)
[2022-07-10] MEDS: INSULIN ASPART PER UNIT SC SCH ×5 (03:46→20:54)
[2022-07-10] MEDS: buPROPion SR 150 MG TABCR PO SCH ×3 (04:02→20:46)
[2022-07-10 06:07] LABS: Basophils # (auto) 0.03 K/uL (0-0.2); Basophils % (auto) 0.5 %; Eosinophils # (auto) 0.09 K/uL (0-0.50); Eosinophils % (auto) 1.4 %; Hematocrit (blood only) 39.4 % (40.1-51.0); Hemoglobin 12.6 g/dl (14.0-18.0); Immature Granulocytes # (auto) 0.02 K/uL (0.00-0.02); Immature Granulocytes % (auto) 0.3 %; Lymphocytes # (auto) 1.55 K/uL (1.2-3.4); Lymphocytes % (auto) 23.7 %; Mean Corpuscular Hemoglobin 30.2 pg (25.0-34.0); Mean Corpuscular Volume 94.5 fL (80.0-100.0); Mean Platelet Volume 10.1 fL (9.4-12.4); Monocytes # (auto) 0.66 K/uL (0.24-0.82); Monocytes % (auto) 10.1 %; Neutrophils # (auto) 4.19 K/uL (1.4-6.5); Platelet Count 122 K/uL (130-400); RDW Coefficient of Variation 14.8 % (11.5-14.5); RDW Standard Deviation 51.7 fL (36.4-46.3); Red Blood Count 4.17 M/uL (4.63-6.08); Reticulocyte % 1.5 % (0.5-2.0); Reticulocytes # 0.06 10^6/uL (0.02-0.10); White Blood Count 6.54 K/ul (4.8-10.8)
[2022-07-10] MEDS: LEVOTHYROXINE SODIUM 100 MCG TABLET PO SCH (06:24)
[2022-07-10 06:34] LABS: BUN Creatinine Ratio 15.7 (10-20); Calcium 8.8 mg/dl (8.5-10.1); Creatinine Clr Calc Pharmacy 54.8 ml/min; Est GFR (African American) 43.8 ml/min; Est GFR (Non-African American) 37.8 ml/min; Potassium 3.6 mmol/L (3.5-5.1)
--- NOTE | 2022-07-10 06:35 | Ultrasound Report ---
US venous doppler LE RT HISTORY: 76 years-old Male sent by PCP acute pain and swelling of the right lower extremity COMPARISON: 01/30/2008 TECHNIQUE: Multiple real-time sonographic images of the right lower extremity deep venous structures were obtained assessing grayscale appearance, color and spectral flow. FINDINGS: Normal flow, compressibility, phasicity and augmentation. IMPRESSION: No sonographic evidence of deep venous thrombosis. ACT 112: Negative or not required by law. The above report was generated using voice recognition software. It may contain grammatical, syntax o r spelling errors. Electronically signed by: Harrison Wolfe M.D. 07/10/2022 6:33 AM
[2022-07-10 06:47] LABS: Ferritin 201.1 ng/ml (8-388)
[2022-07-10] MEDS: CHECK CLONIDINE PATCH PLACEMENT SCH ×4 (07:32→23:47)
[2022-07-10 08:13] LABS: INR 1.9 (0.9-1.1); Prothrombin Time 19.2 Seconds (9.0-12.0)
[2022-07-10] MEDS: hydrALAZINE TAB 50 MG TAB PO SCH ×3 (08:20→20:46)
[2022-07-10] MEDS: MULTIVITAMIN TAB PO SCH (08:21)
--- NOTE | 2022-07-10 08:21 | XRay Report ---
XR chest 1V portable CLINICAL HISTORY: Shortness of breath. COMPARISON STUDY: Chest radiograph August 28, 2021. FINDINGS: No pneumothorax or pleural effusion is present. Linear left lower lung opacities favor scar ring. Cardiomegaly is unchanged. No evidence for pulmonary edema. The appearance of the chest is gray lar to prior exams. IMPRESSION: No acute cardiopulmonary findings. No significant change in appearance of the chest. ACT 112: Negative or not required by law. Electronically signed by: Christian Maradiaga M.D. 07/10/2022 8:20 AM
[2022-07-10] MEDS: TERAZOSIN HCL 5 MG CAP PO SCH ×2 (08:22→20:46)
[2022-07-10] MEDS: DOXYCYCLINE HYCLATE 100 MG CAP PO SCH ×2 (08:22→20:46)
[2022-07-10] MEDS: ASPIRIN 81 MG ECTAB PO SCH (08:22)
[2022-07-10] MEDS: FUROSEMIDE 20 MG TAB PO SCH (08:22)
[2022-07-10] MEDS: allopurinoL 300 MG TAB PO SCH (08:23)
[2022-07-10] MEDS: LOSARTAN POTASSIUM 50 MG TAB PO SCH (08:23)
[2022-07-10] MEDS: carvediloL 25 MG TAB PO SCH ×2 (08:23→20:47)
[2022-07-10] MEDS: FLUTICASONE PROPIONATE NA SPR 16 GM BTL SCH (08:24)
[2022-07-10] MEDS: UMECLIDINIUM/VILANTEROL 62.5/25MCG 7 PUFFS/INHALER INH SCH (08:24)
[2022-07-10] MEDS: NITROGLYCERIN 0.4 MG/HR PATCH TD SCH (08:28)
[2022-07-10 08:30] LABS: Estimated Average Glucose 137 mg/dl; Hemoglobin A1C 6.4 % (4.5-5.6)
[2022-07-10] MEDS: LANTUS PER UNIT CHARGE SQ SCH ×2 (08:34→20:55)
--- NOTE | 2022-07-10 08:44 | CT Scan Report ---
CT OF THE RIGHT ANKLE WITH CONTRAST CLINICAL HISTORY: Right ankle pain. Possible infection. COMPARISON STUDY: Right ankle radiographs March 22, 2014. TECHNIQUE: Axial images of the right ankle were obtained following intravenous injection of Optiray 3 00 IV. Sagittal and coronal reconstructions were viewed. Automated exposure control was utilized for the study. A dose lowering technique was utilized adhering to the principles of ALARA. FINDINGS: There are postoperative findings consistent with open reduction and internal fixation of th e distal right fibular fracture with plate and screws. The hardware is intact. Healed fracture is not ed. No lucency is noted to suggest loosening. There is no evidence for acute osteomyelitis within the right ankle. No soft tissue gas is present. There is moderate subcutaneous edema of the right ankle and visualized portions of the right foot. There is no rim-enhancing fluid collection to suggest an a bscess. A few well-corticated ossicles adjacent to the medial malleolus are chronic. There is moderat e osteoarthritis of the talonavicular joint. Tibiotalar and subtalar joints are intact. There is mild osteoarthritis of these articulations. IMPRESSION: 1. Status post distal right fibular internal fixation with plate and screws. Hardware intact. No luce ncy to suggest loosening. Healed distal right fibular fracture. 2. Moderate subcutaneous edema of the right ankle and visualized portions of the right foot. Lateral ankle skin thickening. This could reflect or cellulitis or edema. No fluid collection to suggest absc ess. No soft tissue gas. ACT 112: Negative or not required by law. Electronically signed by: Christian Maradiaga M.D. 07/10/2022 8:43 AM
[2022-07-10 09:06] LABS: Folate (Folic Acid) 8.65 ng/ml (>5.38)
--- NOTE | 2022-07-10 15:03 | Hospitalist Progress Note ---
Date of Service July 10, 2022 Assessment & Plan (1) Cellulitis: Plan: RLE cellulitis Failed outpatient treatment No overt sepsis for now Improved with Rocephin and doxycycline. Rocephin was given in the ER around 7pm last night and doxy was continued monotherapy. Will add back Rocephin now and cont doxy pending culture results and clinical improvement. 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 Iron deficiency noted on am labwork-->starting supplementation now. outpatient follow-up to ensure he is up to date with CRC screening, etc. [facility]tic[facility]ated Discharge Date Admission Date: July 09, 2022 Subjective 76 yo M with right ankle tenderness and swelling x 3 days ankle pain has resolved and he is feeling better eyes are watery and irritated He has been afebrile overnight Overall feels improved. Review of Systems Review of Systems: All systems were reviewed and negative except as indicated above. Physical Exam Physical Exam: CONSTITUTIONAL: obese, vitals as above, generally well- appearing, NAD EYES: normal conjunctivae, no scleral icterus ENT: external ear and nose normal, MMM NECK: trachea midline RESPIRATORY: clear to auscultation bilaterally, no crackles, rales or wheezes, normal respiratory effort CARDIOVASCULAR: regular rate and rhythm, S1 and 2 heard without murmurs, gallops or rubs, no JVD, no peripheral edema CHEST: inspection of chest was normal GASTROINTESTINAL: soft, nontender, ND, no guarding MUSCULOSKELETAL: strength 5/5 throughout, head is normocephalic and atraumatic SKIN: warm and dry NEUROLOGIC: CN 2-12 grossly intact, no sensory deficit, normal cognition, normal speech, no tremor PSYCHIATRIC: alert cooperative and oriented to person, place and time. Euthymic mood, makes good eye contact, language grossly intact, recent and adri te memory grossly intact. Results & Data Results & Data ([facility]) Vital Signs (Past 12 Hours) Vital Signs Temp Pulse Pulse Resp BP Pulse Ox O2 Del Method 07/10/22 14:33 36.7 C 64 16 151/64 H 93 Room Air 07/10/22 13:37 65 143/81 H 07/10/22 08:15 65 132/91 07/10/22 07:20 CPAP 07/10/22 06:48 36.8 C 63 18 156/65 H 95 CPAP 07/10/22 04:12 CPAP 07/10/22 03:41 62 16 146/80 H 95 07/10/22 03:19 67 27 H 97 07/10/22 03:15 36.4 C L 67 18 184/72 H 97 Room Air O2 Flow Rate 07/10/22 14:33 07/10/22 13:37 07/10/22 08:15 07/10/22 07:20 07/10/22 06:48 07/10/22 04:12 07/10/22 03:41 07/10/22 03:19 5 07/10/22 03:15 Laboratory Results Short CBC 07/09/22 07/10/22 Range/Units 19:30 05:47 WBC 8.53 6.54 (4.8-10.8) K/ul Hgb 13.8 L 12.6 L (14.0-18.0) g/dl Hct 42.3 39.4 L (40.1-51.0) % Plt Count 145 122 L (130-400) K/uL BMP 07/09/22 07/10/22 19:30 05:47 Sodium 139 140 Potassium 3.9 3.6 Chloride 106 108 H Carbon Dioxide 25 25 BUN 29 H 27 H Creatinine 1.80 H 1.72 H Glucose 72 103 H Calcium 9.3 8.8 Liver Function 07/09/22 Range/Units 19:30 Total Bilirubin 0.9 (0.2-1.0) mg/dl AST 30 (13-39) U/L ALT 31 (7-52) U/L Alkaline Phosphatase 62 (34-104) U/L Albumin 3.8 (3.4-5.0) gm/dl Diagnostic Findings Ankle CT 07/09/22 19:11 CT OF THE RIGHT ANKLE WITH CONTRAST CLINICAL HISTORY: Right ankle pain. Possible infection. COMPARISON STUDY: Right ankle radiographs March 22, 2014. TECHNIQUE: Axial images of the right ankle were obtained following intravenous injection of Optiray 300 IV. Sagittal and coronal reconstructions were viewed. Automated exposure control was utilized for the study. A dose lowering technique was utilized adhering to the principles of ALARA. FINDINGS: There are postoperative findings consistent with open reduction and internal fixation of the distal right fibular fracture with plate and screws. The hardware is intact. Healed fracture is noted. No lucency is noted to suggest loosening. There is no evidence for acute osteomyelitis within the right ankle. No soft tissue gas is present. There is moderate subcutaneous edema of the right ankle and visualized portions of the right foot. There is no rim-enhancing fluid collection to suggest an abscess. A few well-corticated ossicles adjacent to the medial malleolus are chronic. 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 Tibiotalar and subtalar joints are intact. There is mild osteoarthritis of these articulations. IMPRESSION: 1. Status post distal right fibular internal fixation with plate and screws. Hardware intact. No lucency to suggest loosening. Healed distal right fibular fracture. 2. Moderate subcutaneous edema of the right ankle and visualized portions of the right foot. Lateral ankle skin thickening. This could reflect or cellulitis or edema. No fluid collection to suggest abscess. No soft tissue gas. ACT 112: Negative or not required by law. Electronically signed by: Christian Maradiaga M.D. 07/10/2022 8:43 AM Venous Doppler Study 07/09/22 19:15 US venous doppler LE RT HISTORY: 76 years-old Male sent by PCP acute pain and swelling of the right lower extremity COMPARISON: 01/30/2008 TECHNIQUE: Multiple real-time sonographic images of the right lower extremity deep venous structures were obtained assessing grayscale appearance, color and spectral flow. FINDINGS: Normal flow, compressibility, phasicity and augmentation. IMPRESSION: No sonographic evidence of deep venous thrombosis. ACT 112: Negative or not required by law. The above report was generated using voice recognition software. It may contain grammatical, syntax or spelling errors. Electronically signed by: Harrison Wolfe M.D. 07/10/2022 6:33 AM Chest X-Ray 07/09/22 23:37 XR chest 1V portable CLINICAL HISTORY: Shortness of breath. COMPARISON STUDY: Chest radiograph August 28, 2021. FINDINGS: No pneumothorax or pleural effusion is present. Linear left lower lung opacities favor scarring. Cardiomegaly is unchanged. No evidence for pulmonary edema. The appearance of the chest is similar to prior exams. IMPRESSION: No acute cardiopulmonary findings. No significant change in appearance of the chest. ACT 112: Negative or not required by law. Electronically signed by: Christian Maradiaga M.D. 07/10/2022 8:20 AM Medications Administered Current Inpatient Medications Acetaminophen (Acetaminophen 325 Mg Tab) 650 mg PO Q4H PRN PRN Reason: pain/fever Stop: 08/09/22 03:12 Allopurinol (Allopurinol 300 Mg Tab) 300 mg PO DAILY [facility]IN Stop: 08/09/22 08:59 Last Admin: 07/10/22 08:23 Dose: 300 mg Aspirin (Aspirin 81 Mg Ectab) 81 mg PO DAILY [facility]VIN Stop: 08/09/22 08:59 Last Admin: 07/10/22 08:22 Dose: 81 mg Bupropion HCl (Bupropion Sr 150 Mg Tabcr) 150 mg PO BID [facility]VIN Stop: 08/09/22 03:12 Last Admin: 07/10/22 08:24 Dose: 150 mg Carvedilol (Carvedilol 25 Mg Tab) 50 mg PO BID [facility]VIN Stop: 08/09/22 08:59 Last Admin: 07/10/22 08:23 Dose: 50 mg Clonidine HCl (Clonidine Hcl 0.3 Mg/24 Hr Transderm Sys) 1 patch TD Nguyen@0900 [facility] Stop: 08/12/22 08:59 Dextrose (Dextrose 50% 50 Ml Syringe) 25 - 50 ml IV UD PRN; Protocol PRN Reason: Hypoglycemia Protocol Stop: 08/09/22 03:12 Doxycycline Hyclate (Doxycycline Hyclate 100 Mg Cap) 100 mg PO BID [facility]VIN Stop: 07/17/22 08:59 Last Admin: 07/10/22 08:22 Dose: 100 mg Famotidine (Famotidine 40 Mg Tablet) 40 mg PO HS [facility]IN Stop: 08/09/22 20:59 Finasteride (Finasteride 5 Mg Tab) 5 mg PO HS [facility]IN Stop: 08/09/22 20:59 Fluticasone Propionate (Fluticasone Propionate Na Spr 16 Gm Btl) 2 sprays NA DAILY [facility] Stop: 08/09/22 08:59 Last Admin: 07/10/22 08:24 Dose: 2 sprays Furosemide (Furosemide 20 Mg Tab) 20 mg PO SuTuThSa@0900 [facility] Stop: 08/09/22 08:59 Last Admin: 07/10/22 08:22 Dose: 20 mg Furosemide (Furosemide 40 Mg Tab) 40 mg PO MoWeFr@0900 [facility] Stop: 08/10/22 08:59 Glucagon (Glucagon For Inj 1 Mg Vial) 1 mg SQ UD PRN; Protocol PRN Reason: Hypoglycemia Protocol Stop: 08/09/22 03:12 Glucose (Glucose 40% Gel 15 Gm Tube) 15 - 30 gm PO UD PRN; Protocol PRN Reason: Hypoglycemia Protocol Stop: 08/09/22 03:12 Glucose (Glucose 10 Tab/Tube) 4 - 8 tab PO UD PRN; Protocol PRN Reason: Hypoglycemia Treatment Stop: 08/09/22 03:12 Hydralazine HCl (Hydralazine Tab 50 Mg Tab) 50 mg PO TID [facility] Stop: 08/09/22 08:59 Last Admin: 07/10/22 13:38 Dose: 50 mg Promethazine HCl 12.5 mg/ (Sodium Chloride) 50.5 mls @ 202 mls/hr IV Q6H PRN PRN Reason: Nausea And Vomiting Stop: 08/09/22 03:12 Insulin Aspart (Insulin Aspart Per Unit) 0 units SC ACHS [facility] Stop: 08/09/22 03:12 Last Admin: 07/10/22 12:21 Dose: 4 units Insulin Glargine (Lantus Per Unit Charge) 40 units SQ BID [facility] Stop: 08/09/22 08:59 Last Admin: 07/10/22 08:34 Dose: 40 units Levothyroxine Sodium (Levothyroxine Sodium 100 Mcg Tablet) 100 mcg PO DAILYBB [facility] Stop: 08/09/22 06:29 Last Admin: 07/10/22 06:24 Dose: 100 mcg Losartan Potassium (Losartan Potassium 50 Mg Tab) 100 mg PO QAM [facility] Stop: 08/09/22 08:59 Last Admin: 07/10/22 08:23 Dose: 100 mg Miscellaneous (Remove Clonidine Patch) 1 each N/A Nguyen@0859 [facility] Stop: 08/12/22 08:58 Miscellaneous (Check Clonidine Patch Placement) 1 each N/A QS [facility] Stop: 08/09/22 07:59 Last Admin: 07/10/22 08:11 Dose: 1 each Miscellaneous (Carbohydrates For Hypoglycemia ) 15 - 30 gm PO UD PRN PRN Reason: Hypoglycemia Protocol Stop: 08/09/22 03:12 Miscellaneous (Remove Nitro-Dur Patch) 1 each N/A DAILY@2100 [facility] Stop: 08/09/22 20:59 Multivitamins (Multivitamin Tab) 1 tab PO QAM [facility] Stop: 08/09/22 08:59 Last Admin: 07/10/22 08:21 Dose: 1 tab Nitroglycerin (Nitroglycerin 0.4 Mg/Hr Patch) 1 patch TD QAM [facility] Stop: 08/09/22 08:59 Last Admin: 07/10/22 08:28 Dose: 1 patch Rosuvastatin Calcium (Rosuvastatin Calcium 20 Mg Tab) 40 mg PO HS [facility] Stop: 08/09/22 20:59 Sennosides (Senna 8.6 Mg Tab) 8.6 mg PO DAILY PRN PRN Reason: Constipation Stop: 08/09/22 03:12 Last Admin: 07/10/22 08:21 Dose: 8.6 mg Terazosin HCl (Terazosin Hcl 5 Mg Cap) 5 mg PO BID [facility] Stop: 08/09/22 08:59 Last Admin: 07/10/22 08:22 Dose: 5 mg Tramadol HCl (Tramadol Hcl 50 Mg Tablet) 25 - 50 mg PO Q4H PRN PRN Reason: Pain Stop: 08/09/22 03:12 Umeclidinium/Vilanterol (Umeclidinium/Vilanterol 62.5/25mcg 7 Puffs/Inhaler) 1 puffs INH DAILY [facility] Stop: 08/09/22 08:59 Last Admin: 07/10/22 08:24 Dose: 1 puffs
[2022-07-10] MEDS: cefTRIAXone SODIUM 2,000 MG in DEXTROSE 5% 50 ML IV SCH (15:49)
[2022-07-10] MEDS: FERROUS SULFATE 325 MG TAB PO SCH (18:19)
[2022-07-10] MEDS: FAMOTIDINE 40 MG TABLET PO SCH (20:45)
[2022-07-10] MEDS: FINASTERIDE 5 MG TAB PO SCH (20:46)
[2022-07-10] MEDS: ROSUVASTATIN CALCIUM 20 MG TAB PO SCH (20:47)
[2022-07-11] MEDS: LEVOTHYROXINE SODIUM 100 MCG TABLET PO SCH (06:00)
[2022-07-11 07:02] LABS: Hematocrit (blood only) 39.4 % (40.1-51.0); Hemoglobin 12.9 g/dl (14.0-18.0); Mean Corpuscular Hemoglobin 30.5 pg (25.0-34.0); Mean Corpuscular Hgb Conc 32.7 g/dL (32.0-36.0); Mean Corpuscular Volume 93.1 fL (80.0-100.0); Mean Platelet Volume 10.2 fL (9.4-12.4); Platelet Count 139 K/uL (130-400); RDW Coefficient of Variation 14.7 % (11.5-14.5); RDW Standard Deviation 50.3 fL (36.4-46.3); Red Blood Count 4.23 M/uL (4.63-6.08); White Blood Count 5.71 K/ul (4.8-10.8)
[2022-07-11 07:32] LABS: Calcium 8.9 mg/dl (8.5-10.1); Creatinine Clr Calc Pharmacy 57.8 ml/min; Est GFR (African American) 46.7 ml/min; Est GFR (Non-African American) 40.3 ml/min; Potassium 3.7 mmol/L (3.5-5.1)
[2022-07-11] MEDS: CHECK CLONIDINE PATCH PLACEMENT SCH ×3 (08:09→21:54)
[2022-07-11] MEDS: DOXYCYCLINE HYCLATE 100 MG CAP PO SCH ×2 (08:10→20:46)
[2022-07-11] MEDS: hydrALAZINE TAB 50 MG TAB PO SCH ×3 (08:10→20:46)
[2022-07-11] MEDS: TERAZOSIN HCL 5 MG CAP PO SCH ×2 (08:10→20:45)
[2022-07-11] MEDS: carvediloL 25 MG TAB PO SCH ×2 (08:10→21:41)
[2022-07-11] MEDS: NITROGLYCERIN 0.4 MG/HR PATCH TD SCH (08:10)
[2022-07-11] MEDS: MULTIVITAMIN TAB PO SCH (08:10)
[2022-07-11] MEDS: buPROPion SR 150 MG TABCR PO SCH ×2 (08:10→20:46)
[2022-07-11] MEDS: ASPIRIN 81 MG ECTAB PO SCH (08:10)
[2022-07-11] MEDS: allopurinoL 300 MG TAB PO SCH (08:11)
[2022-07-11] MEDS: LOSARTAN POTASSIUM 50 MG TAB PO SCH (08:11)
[2022-07-11] MEDS: FLUTICASONE PROPIONATE NA SPR 16 GM BTL SCH (08:11)
[2022-07-11] MEDS: UMECLIDINIUM/VILANTEROL 62.5/25MCG 7 PUFFS/INHALER INH SCH (08:12)
[2022-07-11] MEDS: NAPHAZOLIN/PHENIRAMIN OPH SOLN 75 DROPS/5 ML BTL OPB PRN (08:24)
[2022-07-11] MEDS: LANTUS PER UNIT CHARGE SQ SCH ×2 (08:24→20:44)
[2022-07-11] MEDS: INSULIN ASPART PER UNIT SC SCH ×4 (08:24→20:44)
[2022-07-11] MEDS: SPIRONOLACTONE 12.5 MG TAB PO SCH (08:26)
[2022-07-11] MEDS ORDERED: FUROSEMIDE 40 MG TAB PO SCH (09:00)
--- NOTE | 2022-07-11 11:46 | Hospitalist Progress Note ---
Date of Service July 11, 2022 Assessment & Plan (1) Synovitis of ankle: (2) Cellulitis: Plan: RLE cellulitis vs arthritis of R ankle joint Failed outpatient treatment No overt sepsis for now Improved with Rocephin and doxycycline, but not by alot. Still with exquisite TTP around the right lateral mallolus and with pain, warmth and swelling into the foot, suspect OA flare vs gout flare. Starting course of prednisone which would treat both-increased insulin to counteract hyperglycemic effect of steroid Pain control as needed. He is taking allopurinol Would not stop this and pulling a uric acid level is not appropriate. Orthopedics consulted to see what they think also given the hardward in place in distal fibula. 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 Iron deficiency noted on am labwork-->starting supplementation now. outpatient follow-up to ensure he is up to date with CRC screening, etc. Fior Lujan DO [facility] Hospitalist Admission and Anticipated Discharge Date Admission Date: July 09, 2022 Subjective 76 yo M with right ankle tenderness and swelling x 3 days Ankle pain is more severe, very severe to touch today. TEDs are in place as ordered and removed Erythema is focused right around the lateral malleolus on the right and ROM is somewhat limited in the ankle There is 2-3+ pitting edema still sitting. He ambulates on it but reports pain with weight bearing depending on his foot position The pain is not preventing him from walking and PT/OT are ordered this am. Has a h/o gout but has never had a flare in this ankle before, only in the toes Is taking allopurinol. Suspect less that there is an infection present and more likely this is either an OA or gout flare. Noted hardware in place in distal fibula, looked fine on CT scan performed on admission. Ortho consulted to evaluate and give thoughts-notably sees [facility] for L knee injections in the past. Uncertain who performed his surgery in the right ankle. Review of Systems Review of Systems: All systems were reviewed and negative except as indicated above. Physical Exam Physical Exam: CONSTITUTIONAL: obese, vitals as above, generally well- appearing, NAD EYES: normal conjunctivae, no scleral icterus ENT: external ear and nose normal, MMM NECK: trachea midline RESPIRATORY: clear to auscultation bilaterally, no crackles, rales or wheezes, normal respiratory effort CARDIOVASCULAR: regular rate and rhythm, S1 and 2 heard without murmurs, gallops or rubs, no JVD, no peripheral edema CHEST: inspection of chest was normal GASTROINTESTINAL: soft, nontender, ND, no guarding MUSCULOSKELETAL: strength 5/5 throughout, head is normocephalic and atraumatic SKIN: warm and dry, 2+ pitting edema in the RLE. There is exquisite pain to palpation of the right lateral malleolus area. Erythema is improved but still very intense around this area and swelling and erythema extends into his right foot. NEUROLOGIC: CN 2-12 grossly intact, no sensory deficit, normal cognition, normal speech, no tremor PSYCHIATRIC: alert cooperative and oriented to person, place and time. Euthymic mood, makes good eye contact, language grossly intact, recent and remote memory grossly intact. Results & Data Results & Data ([facility]) Vital Signs (Past 12 Hours) Vital Signs Temp Pulse Pulse Resp BP Pulse Ox O2 Del Method 07/11/22 08:00 Room Air 07/11/22 07:52 36.7 C 58 L 20 147/77 H 93 Room Air 07/11/22 04:14 60 29 H 92 O2 Flow Rate 07/11/22 08:00 07/11/22 07:52 07/11/22 04:14 5 Laboratory Results Short CBC 07/11/22 Range/Units 06:27 WBC 5.71 (4.8-10.8) K/ul Hgb 12.9 L (14.0-18.0) g/dl Hct 39.4 L (40.1-51.0) % Plt Count 139 (130-400) K/uL BMP 07/11/22 06:27 Sodium 139 Potassium 3.7 Chloride 107 Carbon Dioxide 26 BUN 26 H Creatinine 1.63 H Glucose 99 Calcium 8.9 Medications Administered Current Inpatient Medications Acetaminophen (Acetaminophen 325 Mg Tab) 650 mg PO Q4H PRN PRN Reason: pain/fever Stop: 08/09/22 03:12 Allopurinol (Allopurinol 300 Mg Tab) 300 mg PO DAILY MARVIN Stop: 08/09/22 08:59 Last Admin: 07/11/22 08:11 Dose: 300 mg Aspirin (Aspirin 81 Mg Ectab) 81 mg PO DAILY MARVIN Stop: 08/09/22 08:59 Last Admin: 07/11/22 08:10 Dose: 81 mg Bupropion HCl (Bupropion Sr 150 Mg Tabcr) 150 mg PO BID MARVIN Stop: 08/09/22 03:12 Last Admin: 07/11/22 08:10 Dose: 150 mg Carvedilol (Carvedilol 25 Mg Tab) 50 mg PO BID MARVIN Stop: 08/09/22 08:59 Last Admin: 07/11/22 08:10 Dose: 50 mg Clonidine HCl (Clonidine Hcl 0.3 Mg/24 Hr Transderm Sys) 1 patch TD Nguyen@0900 [facility] Stop: 08/12/22 08:59 Dextrose (Dextrose 50% 50 Ml Syringe) 25 - 50 ml IV UD PRN; Protocol PRN Reason: Hypoglycemia Protocol Stop: 08/09/22 03:12 Doxycycline Hyclate (Doxycycline Hyclate 100 Mg Cap) 100 mg PO BID [facility] Stop: 07/17/22 08:59 Last Admin: 07/11/22 08:10 Dose: 100 mg Famotidine (Famotidine 40 Mg Tablet) 40 mg PO HS MARVIN Stop: 08/09/22 20:59 Last Admin: 07/10/22 20:45 Dose: 40 mg Ferrous Sulfate (Ferrous Sulfate 325 Mg Tab) 325 mg PO BID@1100,1700 [facility] Stop: 08/09/22 17:59 Last Admin: 07/10/22 18:19 Dose: 325 mg Finasteride (Finasteride 5 Mg Tab) 5 mg PO HS [facility] Stop: 08/09/22 20:59 Last Admin: 07/10/22 20:46 Dose: 5 mg Fluticasone Propionate (Fluticasone Propionate Na Spr 16 Gm Btl) 2 sprays NA DAILY MARVIN Stop: 08/09/22 08:59 Last Admin: 07/11/22 08:11 Dose: 2 sprays Furosemide (Furosemide 20 Mg Tab) 20 mg PO SuTuThSa@0900 MARVIN Stop: 08/09/22 08:59 Last Admin: 07/10/22 08:22 Dose: 20 mg Furosemide (Furosemide 40 Mg Tab) 40 mg PO MoWeFr@899 [facility] Stop: 08/10/22 08:59 Last Admin: 07/11/22 08:11 Dose: 40 mg Glucagon (Glucagon For Inj 1 Mg Vial) 1 mg SQ UD PRN; Protocol PRN Reason: Hypoglycemia Protocol Stop: 08/09/22 03:12 Glucose (Glucose 40% Gel 15 Gm Tube) 15 - 30 gm PO UD PRN; Protocol PRN Reason: Hypoglycemia Protocol Stop: 08/09/22 03:12 Glucose (Glucose 10 Tab/Tube) 4 - 8 tab PO UD PRN; Protocol PRN Reason: Hypoglycemia Treatment Stop: 08/09/22 03:12 Hydralazine HCl (Hydralazine Tab 50 Mg Tab) 50 mg PO TID [facility] Stop: 08/09/22 08:59 Last Admin: 07/11/22 08:10 Dose: 50 mg Promethazine HCl 12.5 mg/ (Sodium Chloride) 50.5 mls @ 202 mls/hr IV Q6H PRN PRN Reason: Nausea And Vomiting Stop: 08/09/22 03:12 Ceftriaxone Sodium 2,000 mg/ (Dextrose) 70 mls @ 100 mls/hr IV Q24H [facility]; Protocol Stop: 07/17/22 15:14 Last Infusion: 07/10/22 16:54 Dose: Infused Insulin Aspart (Insulin Aspart Per Unit) 0 units SC ACHS [facility] Stop: 08/09/22 03:12 Last Admin: 07/11/22 08:24 Dose: 5 units Insulin Glargine (Lantus Per Unit Charge) 40 units SQ BID [facility] Stop: 08/09/22 08:59 Last Admin: 07/11/22 08:24 Dose: 40 units Levothyroxine Sodium (Levothyroxine Sodium 100 Mcg Tablet) 100 mcg PO DAILYBB [facility] Stop: 08/09/22 06:29 Last Admin: 07/11/22 06:00 Dose: 100 mcg Losartan Potassium (Losartan Potassium 50 Mg Tab) 100 mg PO QAM [facility] Stop: 08/09/22 08:59 Last Admin: 07/11/22 08:11 Dose: 100 mg Miscellaneous (Remove Clonidine Patch) 1 each N/A Nguyen@0859 [facility] Stop: 08/12/22 08:58 Miscellaneous (Check Clonidine Patch Placement) 1 each N/A QS [facility] Stop: 08/09/22 07:59 Last Admin: 07/11/22 08:09 Dose: 1 each Miscellaneous (Carbohydrates For Hypoglycemia ) 15 - 30 gm PO UD PRN PRN Reason: Hypoglycemia Protocol Stop: 08/09/22 03:12 Miscellaneous (Remove Nitro-Dur Patch) 1 each N/A DAILY@2100 [facility] Stop: 08/09/22 20:59 Last Admin: 07/10/22 20:47 Dose: 1 each Multivitamins (Multivitamin Tab) 1 tab PO QAM [facility] Stop: 08/09/22 08:59 Last Admin: 07/11/22 08:10 Dose: 1 tab Naphazoline HCl/Pheniramine Maleate (Naphazolin/Pheniramin Oph Soln 75 Drops/5 Ml Btl) 2 drops OPB QID PRN PRN Reason: itchy watery eyes Stop: 08/09/22 14:58 Last Admin: 07/11/22 08:24 Dose: 2 drops Nitroglycerin (Nitroglycerin 0.4 Mg/Hr Patch) 1 patch TD QAM [facility] Stop: 08/09/22 08:59 Last Admin: 07/11/22 08:10 Dose: 1 patch Prednisone (Prednisone 20 Mg Tab) 40 mg PO QAM [facility] Stop: 08/10/22 11:29 Rosuvastatin Calcium (Rosuvastatin Calcium 20 Mg Tab) 40 mg PO HS [facility] Stop: 08/09/22 20:59 Last Admin: 07/10/22 20:47 Dose: 40 mg Sennosides (Senna 8.6 Mg Tab) 8.6 mg PO DAILY PRN PRN Reason: Constipation Stop: 08/09/22 03:12 Last Admin: 07/10/22 08:21 Dose: 8.6 mg Spironolactone (Spironolactone 12.5 Mg Tab) 12.5 mg PO DAILY [facility] Stop: 08/10/22 08:59 Last Admin: 07/11/22 08:26 Dose: 12.5 mg Terazosin HCl (Terazosin Hcl 5 Mg Cap) 5 mg PO BID [facility] Stop: 08/09/22 08:59 Last Admin: 07/11/22 08:10 Dose: 5 mg Tramadol HCl (Tramadol Hcl 50 Mg Tablet) 25 - 50 mg PO Q4H PRN PRN Reason: Pain Stop: 08/09/22 03:12 Umeclidinium/Vilanterol (Umeclidinium/Vilanterol 62.5/25mcg 7 Puffs/Inhaler) 1 puffs INH DAILY MARVIN Stop: 08/09/22 08:59 Last Admin: 07/11/22 08:12 Dose: 1 puffs
[2022-07-11] MEDS: FERROUS SULFATE 325 MG TAB PO SCH ×2 (12:22→17:11)
[2022-07-11] MEDS: predniSONE 20 MG TAB PO SCH (12:22)
--- NOTE | 2022-07-11 14:39 | Orthopedic Consultation ---
Date of Consultation July 11, 2022 Assessment & Plan (1) Cellulitis: Cellulitis of the right ankle and foot. Status post ORIF right fibular fracture in 2013. Noted wound healing issues postoperatively resulting in skin grafting which did heal. CT scan reviewed showing no abscesses or joint effusions. Moderate subcutaneous edema of the right ankle and foot. No evidence of loosening of the hardware. Fracture well-healed of the right fibula. No evidence of osteomyelitis. Moderate talonavicular arthritis. We will order a plain film of the right ankle. Continue to keep the right lower extremity elevated at rest. Continue IV antibiotics. Limited ambulation at this time. Patient may be up to the bathroom and to the chair but must have his extremity elevated when sitting. Weightbearing as tolerated. I will discuss the case with Dr. Arellano who will see the patient in the near future as well. I have discussed the case with Dr. Lujan as well. History of Present Illness Reason for Consultation: Right ankle/ foot cellulitis Attending Physician: Fior Lujan, DO History of Present Illness Patient is a 76-year-old male who was admitted late in the evening of 07/09/2022 for cellulitis of his right lower extremity at the foot and ankle region. Patient had started having increased pain and erythema of the right lower extremity several days prior to coming into the hospital. Patient was having fevers off and on at home. He had gone to his primary care physician who started him on Keflex. Patient has a history of having an ORIF of his right fibula by Dr. Darren Toribio in 2013. Patient states that he had difficulty healing the wound and ended up having a type of skin grafting done here at the wound care center of which healed the wound and he has been doing well since then. Patient states that he was having some difficulty with weightbearing with the pain from his foot and ankle. Once his symptoms continue to worsen he came into the emergency room. He was seen by the staff and then was admitted by [facility] service for further care. He was started on IV antibiotics which currently he is on ceftriaxone and oral doxycycline. We have been asked to see him for his cellulitis. Currently the patient was sleeping upon entering the room. He is easily awoken. He states that most of his pain is around the lateral aspect of the ankle and the foot. He states that the pain has not worsened and may be has gotten a little bit better. Allergies Allergy/AdvReac Type Severity Reaction Status Date / Time No Known Allergies Allergy Verified 07/09/22 22:09 Home Medications Medication Instructions Recorded Confirmed Type acetaminophen 500 mg tablet 1,000 mg PO Q6H PRN Pain 08/28/21 07/09/22 History bupropion HCl 150 mg tablet,12 hr 150 mg PO BID 08/28/21 07/09/22 History sustained-release carvedilol 25 mg tablet 50 mg PO BID 08/28/21 07/09/22 History clonidine 0.3 mg/24 hr weekly 1 patch transdermal WK 08/28/21 07/09/22 History transdermal patch famotidine 20 mg tablet 40 mg PO HS 08/28/21 07/09/22 History finasteride 5 mg tablet 5 mg PO HS 08/28/21 07/09/22 History furosemide 20 mg tablet (Lasix) 20 mg PO 5XWK 08/28/21 07/09/22 History furosemide 40 mg tablet (Lasix) 40 mg PO 3XWK 08/28/21 07/09/22 History hydralazine 50 mg tablet 50 mg PO TID 08/28/21 07/09/22 History insulin glargine 100 unit/mL 30 unit subcut QAM 08/28/21 07/09/22 History subcutaneous solution (Lantus U-100 Insulin) insulin regular human 100 unit/mL 0 unit subcut TIDM 08/28/21 07/09/22 History injection solution (Novolin R Regular U-100 Insulin) ipratropium 0.5 mg-albuterol 3 mg 1 ml inhalation QID PRN Shortness 08/28/21 07/09/22 History (2.5 mg base)/3 mL nebulization Of Breath soln levothyroxine 100 mcg tablet 100 mcg PO QAM 08/28/21 07/09/22 History losartan 100 mg tablet 100 mg PO QAM 08/28/21 07/09/22 History multivitamin 1 tab PO QAM 08/28/21 07/09/22 History nitroglycerin 0.4 patch transdermal QAM 08/28/21 07/09/22 History rosuvastatin 40 mg tablet 40 mg PO HS 08/28/21 07/09/22 History spironolactone 25 mg tablet 12.5 mg PO DAILY 08/28/21 07/09/22 History terazosin 5 mg capsule 5 mg PO BID 08/28/21 07/09/22 History umeclidinium 62.5 mcg-vilanterol 1 inh inhalation DAILY 08/28/21 07/09/22 History 25 mcg/actuation powdr for inhalation (Anoro Ellipta) warfarin 3 mg tablet 9 mg PO WK 08/28/21 07/09/22 History warfarin 6 mg tablet 6 mg PO 6XWK 08/28/21 07/09/22 History allopurinol 300 mg tablet 300 mg PO DAILY 07/09/22 07/09/22 History aspirin 81 mg tablet,delayed 81 mg PO DAILY 07/09/22 07/09/22 History release cephalexin 500 mg capsule 500 mg PO QID 07/09/22 07/09/22 History cholecalciferol (vitamin D3) 25 25 mcg PO DAILY 07/09/22 07/09/22 History mcg (1,000 unit) tablet fluticasone propionate 50 2 spray intranasal DAILY 07/09/22 07/09/22 History mcg/actuation nasal spray,suspension (Flonase Allergy Relief) glimepiride 2 mg tablet 2 mg PO QAM 07/09/22 07/09/22 History insulin glargine 100 unit/mL 70 unit subcut QPM 07/09/22 07/09/22 History subcutaneous solution (Lantus U-100 Insulin) sennosides 8.6 mg tablet (Senna 8.6 mg PO DAILY PRN Constipation 07/09/22 07/09/22 History Lax) Patient History Medical History Anticoagulated on warfarin COPD (chronic obstructive pulmonary disease) Diabetes mellitus, type 2 Hypertension Social History Smoking Status: Former smoker Second Hand Exposure: No; Do You Dip or Chew Tobacco: No; Hx Alcohol Use: Yes Alcohol type: beer Hx Substance Use: No Preferred Language: Kazakh Communication Ability: Effective 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 He is in no acute distress. Pleasant and cooperative. Alert and oriented x3. On examination of his right lower extremity, I removed his sock from the right foot. He has some residual erythema noted that is still traveling proximally above the ankle over anterior aspect and also mostly lateral. He has diffuse cellulitis over the lateral aspect of the ankle in the area of where his hardware would be from his previous surgery. There are no open wounds. He has an area of scar noted from previous skin grafting etc. The skin itself is firm to the touch and the patient has exquisite tenderness on light touch over the whole of the lateral portion of the left ankle. I cannot appreciate any areas of fluctuance at this time. He has moderate edema over the dorsum of the foot but is nontender on palpation. He states that it was tender when he first came into the hospital but this seems to be slowly resolving. He does have some s light residual erythema over the dorsum of the foot mainly over the lateral aspect. At least 2+ pitting edema noted. Patient is able to take his ankle through gentle range of motion actively. He is not having severe pain with this. He states that it feels weird around the ankle which he feels is secondary to his swelling. When moving the right ankle, I cannot appreciate any crepitus. Toes are nontender and mobile. Sensation is completely intact. Capillary refill is less than 2 seconds. Results & Data ([facility]) Vital Signs (Past 12 Hours) Vital Signs Temp Pulse Pulse Resp BP Pulse Ox O2 Del Method 07/11/22 08:00 Room Air 07/11/22 07:52 36.7 C 58 L 20 147/77 H 93 Room Air 07/11/22 04:14 60 29 H 92 O2 Flow Rate 07/11/22 08:00 07/11/22 07:52 07/11/22 04:14 5 Laboratory Results Laboratory Results WBC 5.71 K/ul (4.8-10.8) 07/11/22 06:27 RBC 4.23 M/uL (4.63-6.08) L 07/11/22 06:27 Hgb 12.9 g/dl (14.0-18.0) L 07/11/22 06:27 Hct 39.4 % (40.1-51.0) L 07/11/22 06:27 MCV 93.1 fL (80.0-100.0) 07/11/22 06:27 MCH 30.5 pg (25.0-34.0) 07/11/22 06:27 MCHC 32.7 g/dL (32.0-36.0) 07/11/22 06:27 RDW Std Deviation 50.3 fL (36.4-46.3) H 07/11/22 06:27 RDW Coeff of Gucci 14.7 % (11.5-14.5) H 07/11/22 06:27 Plt Count 139 K/uL (130-400) 07/11/22 06:27 MPV 10.2 fL (9.4-12.4) 07/11/22 06:27 Immature Gran % (Auto) 0.3 % 07/10/22 05:47 Neut % (Auto) 64.0 % 07/10/22 05:47 Lymph % (Auto) 23.7 % 07/10/22 05:47 Frederick % (Auto) 10.1 % 07/10/22 05:47 Eos % (Auto) 1.4 % 07/10/22 05:47 Baso % (Auto) 0.5 % 07/10/22 05:47 Reticulocyte % (Auto) 1.5 % (0.5-2.0) 07/10/22 05:47 Neut # (Auto) 4.19 K/uL (1.4-6.5) 07/10/22 05:47 Lymph # (Auto) 1.55 K/uL (1.2-3.4) 07/10/22 05:47 Frederick # (Auto) 0.66 K/uL (0.24-0.82) 07/10/22 05:47 Eos # (Auto) 0.09 K/uL (0-0.50) 07/10/22 05:47 Baso # (Auto) 0.03 K/uL (0-0.2) 07/10/22 05:47 Reticulocyte # 0.06 10^6/uL (0.02-0.10) 07/10/22 05:47 Immature Gran # (Auto) 0.02 K/uL (0.00-0.02) 07/10/22 05:47 PT 19.2 Seconds (9.0-12.0) H 07/10/22 05:47 INR 1.9 (0.9-1.1) H 07/10/22 05:47 APTT 41.9 Seconds (21.0-31.0) H 07/09/22 19:30 PTT Ratio 1.5 07/09/22 19:30 Sodium 139 mmol/L (136-145) 07/11/22 06:27 Potassium 3.7 mmol/L (3.5-5.1) 07/11/22 06:27 Chloride 107 mmol/L (98-107) 07/11/22 06:27 Carbon Dioxide 26 mmol/L (21-32) 07/11/22 06:27 Anion Gap 6 (3-11) 07/11/22 06:27 BUN 26 mg/dl (6-23) H 07/11/22 06:27 Creatinine 1.63 mg/dl (0.6-1.4) H 07/11/22 06:27 Est Cr Clr Drug Dosing 57.8 ml/min 07/11/22 06:27 Est GFR ( Amer) 46.7 ml/min 07/11/22 06:27 Est GFR (Non-Af Amer) 40.3 ml/min 07/11/22 06:27 BUN/Creatinine Ratio 16.0 (10-20) 07/11/22 06:27 Glucose 99 mg/dl (70-99(Fasting)) 07/11/22 06:27 POC Glucose 175 mg/dl (70-99) H 07/11/22 11:45 Estimat Average Glucose 137 mg/dl 07/10/22 05:47 Hemoglobin A1c 6.4 % (4.5-5.6) H 07/10/22 05:47 Lactate 0.6 mmol/L (0.4-2.0) 07/09/22 20:05 Calcium 8.9 mg/dl (8.5-10.1) 07/11/22 06:27 Iron 24 mcg/dl (35-175) L 07/10/22 05:47 Transferrin 164 mg/dl (200-360) L 07/10/22 05:47 Ferritin 201.1 ng/ml (8-388) 07/10/22 05:47 Total Bilirubin 0.9 mg/dl (0.2-1.0) 07/09/22 19:30 AST 30 U/L (13-39) 07/09/22 19:30 ALT 31 U/L (7-52) 07/09/22 19:30 Alkaline Phosphatase 62 U/L (34-104) 07/09/22 19:30 C-Reactive Protein 17.60 mg/dl (0-0.5) H 07/09/22 19:30 Total Protein 6.8 gm/dl (6.0-8.3) 07/09/22 19:30 Albumin 3.8 gm/dl (3.4-5.0) 07/09/22 19:30 Globulin 3.0 gm/dl (2.5-4.0) 07/09/22 19:30 Albumin/Globulin Ratio 1.3 (0.9-2) 07/09/22 19:30 Vitamin B12 204 pg/ml (180-914) 07/10/22 05:47 Folate 8.65 ng/ml (>5.38) 07/10/22 05:47 Procalcitonin 0.06 ng/ml (0-0.5) 07/09/22 19:30 SARS-CoV-2, RNA, NAAT NEGATIVE (NEGATIVE) 07/09/22 22:52 Blood Type A Positive 07/10/22 05:47 Antibody Screen NEGATIVE 07/10/22 05:[address] 07/09/22 19:11 CT OF THE RIGHT ANKLE WITH CONTRAST CLINICAL HISTORY: Right ankle pain. Possible infection. COMPARISON STUDY: Right ankle radiographs March 22, 2014. TECHNIQUE: Axial images of the right ankle were obtained following intravenous injection of Optiray 300 IV. Sagittal and coronal reconstructions were viewed. Automated exposure control was utilized for the study. A dose lowering technique was utilized adhering to the principles of ALARA. FINDINGS: There are postoperative findings consistent with open reduction and internal fixation of the distal right fibular fracture with plate and screws. The hardware is intact. Healed fracture is noted. No lucency is noted to suggest loosening. There is no evidence for acute osteomyelitis within the right ankle. No soft tissue gas is present. There is moderate subcutaneous edema of the right ankle and visualized portions of the right foot. There is no rim-enhancing fluid collection to suggest an abscess. A few well-corticated ossicles adjacent to the medial malleolus are chronic. 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 Tibiotalar and subtalar joints are intact. There is mild osteoarthritis of these articulations. IMPRESSION: 1. Status post distal right fibular internal fixation with plate and screws. Hardware intact. No lucency to suggest loosening. Healed distal right fibular fracture. 2. Moderate subcutaneous edema of the right ankle and visualized portions of the right foot. Lateral ankle skin thickening. This could reflect or cellulitis or edema. No fluid collection to suggest abscess. No soft tissue gas. ACT 112: Negative or not required by law. Electronically signed by: Christian Maradiaga M.D. 07/10/2022 8:43 AM Venous Doppler Study 07/09/22 19:15 US venous doppler LE RT HISTORY: 76 years-old Male sent by PCP acute pain and swelling of the right lower extremity COMPARISON: 01/30/2008 TECHNIQUE: Multiple real-time sonographic images of the right lower extremity deep venous structures were obtained assessing grayscale appearance, color and spectral flow. FINDINGS: Normal flow, compressibility, phasicity and augmentation. IMPRESSION: No sonographic evidence of deep venous thrombosis. ACT 112: Negative or not required by law. The above report was generated using voice recognition software. It may contain grammatical, syntax or spelling errors. Electronically signed by: Harrison Wolfe M.D. 07/10/2022 6:33 AM
--- NOTE | 2022-07-11 14:58 | XRay Report ---
XR ankle RT 2V HISTORY: 76 years-old Male Pain chronic right ankle pain COMPARISON: Acute right ankle 07/09/2022 TECHNIQUE: 2 views the right ankle FINDINGS: Healed distal fibular fracture with lateral plate and screw fusion. No evidence of hardware complicat ion. Mild to moderate osteoarthritis. Minimal marginal spurring of the calcaneus. No acute fracture, dislocation, osseous erosion or osteochondral defect. Moderate diffuse soft tissue swelling with zoraida rial calcifications. IMPRESSION: 1. Healed fixated distal fibular fracture. No evidence of hardware complication. 2. Soft tissue swelling without acute fracture or dislocation. ACT 112: Negative or not required by law. The above report was generated using voice recognition software. It may contain grammatical, syntax o r spelling errors. Electronically signed by: Harrison Wlofe M.D. 07/11/2022 2:56 PM
[2022-07-11] MEDS: cefTRIAXone SODIUM 2,000 MG in DEXTROSE 5% 50 ML IV SCH (15:02)
[2022-07-11] MEDS: FAMOTIDINE 40 MG TABLET PO SCH (20:45)
[2022-07-11] MEDS: ROSUVASTATIN CALCIUM 20 MG TAB PO SCH (20:45)
[2022-07-11] MEDS: FINASTERIDE 5 MG TAB PO SCH (20:46)
[2022-07-12] MEDS: LEVOTHYROXINE SODIUM 100 MCG TABLET PO SCH (05:50)
[2022-07-12] MEDS: CHECK CLONIDINE PATCH PLACEMENT SCH ×2 (09:02→15:29)
[2022-07-12] MEDS: buPROPion SR 150 MG TABCR PO SCH ×2 (09:03→20:36)
[2022-07-12] MEDS: DOXYCYCLINE HYCLATE 100 MG CAP PO SCH ×2 (09:03→20:36)
[2022-07-12] MEDS: hydrALAZINE TAB 50 MG TAB PO SCH ×3 (09:03→20:36)
[2022-07-12] MEDS: TERAZOSIN HCL 5 MG CAP PO SCH ×2 (09:03→20:37)
[2022-07-12] MEDS: allopurinoL 300 MG TAB PO SCH (09:04)
[2022-07-12] MEDS: predniSONE 20 MG TAB PO SCH (09:04)
[2022-07-12] MEDS: SPIRONOLACTONE 12.5 MG TAB PO SCH (09:04)
[2022-07-12] MEDS: MULTIVITAMIN TAB PO SCH (09:05)
[2022-07-12] MEDS: ASPIRIN 81 MG ECTAB PO SCH (09:05)
[2022-07-12] MEDS: UMECLIDINIUM/VILANTEROL 62.5/25MCG 7 PUFFS/INHALER INH SCH (09:06)
[2022-07-12] MEDS: carvediloL 25 MG TAB PO SCH ×2 (09:06→20:37)
[2022-07-12] MEDS: FLUTICASONE PROPIONATE NA SPR 16 GM BTL SCH (09:06)
[2022-07-12] MEDS: LOSARTAN POTASSIUM 50 MG TAB PO SCH (09:09)
[2022-07-12] MEDS: NITROGLYCERIN 0.4 MG/HR PATCH TD SCH (09:10)
[2022-07-12] MEDS: FUROSEMIDE 20 MG TAB PO SCH (09:10)
[2022-07-12] MEDS: LANTUS PER UNIT CHARGE SQ SCH ×2 (09:16→21:39)
[2022-07-12] MEDS: INSULIN ASPART PER UNIT SC SCH ×4 (09:16→21:39)
[2022-07-12] MEDS: NAPHAZOLIN/PHENIRAMIN OPH SOLN 75 DROPS/5 ML BTL OPB PRN (10:09)
[2022-07-12] MEDS ORDERED: traMADol HCL 50 MG TABLET PO STA (10:33)
[2022-07-12] MEDS: FERROUS SULFATE 325 MG TAB PO SCH ×2 (10:47→17:43)
--- NOTE | 2022-07-12 11:26 | Orthopedic Progress Note ---
Date of Service July 12, 2022 Assessment & Plan (1) Cellulitis: Plan: Cellulitis of the right ankle and foot. Status post ORIF right fibular fracture in 2014. Noted wound healing issues postoperatively resulting in skin grafting which did heal. Overall improvement of the cellulitis/and/or gout flare. Discussed the case with Dr. Arellano who saw the patient with me rounding. Prefer patient has another 24 hours of IV antibiotics plans to send him home on oral antibiotics if he continues to improve that lateral aspect. I discussed this with Dr. Lujan as well. Continue current plan. We will discussed with nursing about getting a pillow for his right lower extremity for elevation. Admission and Anticipated Discharge Date Admission Date: July 09, 2022 Subjective Patient is sitting up in bed awake and alert. Dates he is feeling better with his right lower extremity. No new complaints. Physical Exam Physical Exam: A good portion of his lower extremity erythema has improved. No overt erythema over the dorsum of the foot. Erythema over the anterior tibia has resolved. He has marked improvement with his swelling of the lower extremity. He still has some slight pitting edema of the dorsum of the foot but it is greatly improved. He has good range of motion of his ankle without pain. Continues to have bright red erythema over the lateral aspect around the area of where his previous surgery was. The central portion is a darkened erythema. He still has sensitivity to light touch but on deeper palpation, I cannot appreciate any areas of fluctuance. Sensation remains intact. Results & Data ([facility]) Vital Signs (Past 12 Hours) Vital Signs Temp Pulse Pulse Resp BP Pulse Ox O2 Del Method 07/12/22 08:59 54 L 155/83 H 07/12/22 08:39 36.3 C L 54 L 18 157/84 H 95 Room Air 07/12/22 07:20 24 95 07/12/22 03:00 CPAP 07/12/22 03:51 54 L 26 H 96 07/12/22 00:39 61 25 H 96 O2 Flow Rate 07/12/22 08:59 07/12/22 08:39 07/12/22 07:20 5 07/12/22 03:00 07/12/22 03:51 5 07/12/22 00:39 5
--- NOTE | 2022-07-12 13:34 | Hospitalist Progress Note ---
Date of Service July 12, 2022 Assessment & Plan (1) Synovitis of ankle: (2) Cellulitis: Plan: RLE cellulitis vs synovitis (?gout) of R ankle joint Failed outpatient treatment Improved on current antibiotic therapy TTP around the right lateral malleolus and with pain, warmth and swelling into the foot, has improved today with resolution of the RLE edema. Suspect OA flare vs gout flare. Cont short course prednisone Cont IV abx --per ortho cont one more day given hardware in place. 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 Iron deficiency noted on am labwork-->starting supplementation now. outpatient follow-up to ensure he is up to date with CRC screening, etc. Fior Lujan DO [facility] Hospitalist Admission and Anticipated Discharge Date Admission Date: July 09, 2022 Subjective 76 yo M with right ankle tenderness and swelling x 3 days Ankle pain is still very tender Edema has improved significantly Erythema is still present focally over the right lateral malleolus Discussed case with orthopedics who feels that the intravenous antibiotic should be continued 1 more day with the level of erythema that is present Erythema and pain have improved since starting prednisone yesterday The patient is up and walking around. Review of Systems Review of Systems: All systems were reviewed and negative except as indicated above. Physical Exam Physical Exam: CONSTITUTIONAL: obese, vitals as above, generally well- appearing, NAD EYES: normal conjunctivae, no scleral icterus ENT: external ear and nose normal, MMM NECK: trachea midline RESPIRATORY: clear to auscultation bilaterally, no crackles, rales or wheezes, normal respiratory effort CARDIOVASCULAR: regular rate and rhythm, S1 and 2 heard without murmurs, gallops or rubs, no JVD, no peripheral edema CHEST: inspection of chest was normal GASTROINTESTINAL: soft, nontender, ND, no guarding MUSCULOSKELETAL: strength 5/5 throughout, head is normocephalic and atraumatic SKIN: warm and dry, 2+ pitting edema in the RLE. There is exquisite pain to palpation of the right lateral malleolus area that is better today. Min to no erythema on the surrounding area, but still focally over the right lateral malleolus. NEUROLOGIC: CN 2-12 grossly intact, no sensory deficit, normal cognition, normal speech, no tremor PSYCHIATRIC: alert cooperative and oriented to person, place and time. Euthymic mood, makes good eye contact, language grossly intact, recent and remote memory grossly intact. Results & Data Results & Data ([facility]) Vital Signs (Past 12 Hours) Vital Signs Temp Pulse Pulse Resp BP Pulse Ox O2 Del Method 07/12/22 09:50 Room Air 07/12/22 08:59 54 L 155/83 H 07/12/22 08:39 36.3 C L 54 L 18 157/84 H 95 Room Air 07/12/22 07:20 24 95 07/12/22 03:00 CPAP 07/12/22 03:51 54 L 26 H 96 O2 Flow Rate 07/12/22 09:50 07/12/22 08:59 07/12/22 08:39 07/12/22 07:20 5 07/12/22 03:00 07/12/22 03:51 5 Medications Administered Current Inpatient Medications Acetaminophen (Acetaminophen 325 Mg Tab) 650 mg PO Q4H PRN PRN Reason: pain/fever Stop: 08/09/22 03:12 Allopurinol (Allopurinol 300 Mg Tab) 300 mg PO DAILY MARVIN Stop: 08/09/22 08:59 Last Admin: 07/12/22 09:04 Dose: 300 mg Aspirin (Aspirin 81 Mg Ectab) 81 mg PO DAILY MARVIN Stop: 08/09/22 08:59 Last Admin: 07/12/22 09:05 Dose: 81 mg Bupropion HCl (Bupropion Sr 150 Mg Tabcr) 150 mg PO BID MARVIN Stop: 08/09/22 03:12 Last Admin: 07/12/22 09:03 Dose: 150 mg Carvedilol (Carvedilol 25 Mg Tab) 50 mg PO BID MARVIN Stop: 08/09/22 08:59 Last Admin: 07/12/22 09:06 Dose: Not Given Clonidine HCl (Clonidine Hcl 0.3 Mg/24 Hr Transderm Sys) 1 patch TD Nguyen@0900 [facility] Stop: 08/12/22 08:59 Dextrose (Dextrose 50% 50 Ml Syringe) 25 - 50 ml IV UD PRN; Protocol PRN Reason: Hypoglycemia Protocol Stop: 08/09/22 03:12 Doxycycline Hyclate (Doxycycline Hyclate 100 Mg Cap) 100 mg PO BID [facility] Stop: 07/17/22 08:59 Last Admin: 07/12/22 09:03 Dose: 100 mg Famotidine (Famotidine 40 Mg Tablet) 40 mg PO [facility] Stop: 08/09/22 20:59 Last Admin: 07/11/22 20:45 Dose: 40 mg Ferrous Sulfate (Ferrous Sulfate 325 Mg Tab) 325 mg PO BID@1100,1700 [facility] Stop: 08/09/22 17:59 Last Admin: 07/12/22 10:47 Dose: 325 mg Finasteride (Finasteride 5 Mg Tab) 5 mg PO [facility] Stop: 08/09/22 20:59 Last Admin: 07/11/22 20:46 Dose: 5 mg Fluticasone Propionate (Fluticasone Propionate Na Spr 16 Gm Btl) 2 sprays NA DAILY [facility] Stop: 08/09/22 08:59 Last Admin: 07/12/22 09:06 Dose: 2 sprays Furosemide (Furosemide 20 Mg Tab) 20 mg PO SuTuThSa@0900 [facility] Stop: 08/09/22 08:59 Last Admin: 07/12/22 09:10 Dose: 20 mg Furosemide (Furosemide 40 Mg Tab) 40 mg PO MoWeFr@0900 [facility] Stop: 08/10/22 08:59 Last Admin: 07/11/22 08:11 Dose: 40 mg Glucagon (Glucagon For Inj 1 Mg Vial) 1 mg SQ UD PRN; Protocol PRN Reason: Hypoglycemia Protocol Stop: 08/09/22 03:12 Glucose (Glucose 40% Gel 15 Gm Tube) 15 - 30 gm PO UD PRN; Protocol PRN Reason: Hypoglycemia Protocol Stop: 08/09/22 03:12 Glucose (Glucose 10 Tab/Tube) 4 - 8 tab PO UD PRN; Protocol PRN Reason: Hypoglycemia Treatment Stop: 08/09/22 03:12 Hydralazine HCl (Hydralazine Tab 50 Mg Tab) 50 mg PO TID [facility] Stop: 08/09/22 08:59 Last Admin: 07/12/22 09:03 Dose: 50 mg Promethazine HCl 12.5 mg/ (Sodium Chloride) 50.5 mls @ 202 mls/hr IV Q6H PRN PRN Reason: Nausea And Vomiting Stop: 08/09/22 03:12 Ceftriaxone Sodium 2,000 mg/ (Dextrose) 70 mls @ 100 mls/hr IV Q24H [facility]; Protocol Stop: 07/17/22 15:14 Last Infusion: 07/11/22 15:48 Dose: Infused Insulin Aspart (Insulin Aspart Per Unit) 0 units SC ACHS [facility] Stop: 08/09/22 03:12 Last Admin: 07/12/22 13:00 Dose: 17 units Insulin Glargine (Lantus Per Unit Charge) 40 units SQ BID [facility] Stop: 08/09/22 08:59 Last Admin: 07/12/22 09:16 Dose: 40 units Levothyroxine Sodium (Levothyroxine Sodium 100 Mcg Tablet) 100 mcg PO DAILYBB [facility] Stop: 08/09/22 06:29 Last Admin: 07/12/22 05:50 Dose: 100 mcg Losartan Potassium (Losartan Potassium 50 Mg Tab) 100 mg PO QAM [facility] Stop: 08/09/22 08:59 Last Admin: 07/12/22 09:09 Dose: 100 mg Miscellaneous (Remove Clonidine Patch) 1 each N/A Nguyen@0859 [facility] Stop: 08/12/22 08:58 Miscellaneous (Check Clonidine Patch Placement) 1 each N/A QS [facility] Stop: 08/09/22 07:59 Last Admin: 07/12/22 09:02 Dose: 1 each Miscellaneous (Carbohydrates For Hypoglycemia ) 15 - 30 gm PO UD PRN PRN Reason: Hypoglycemia Protocol Stop: 08/09/22 03:12 Miscellaneous (Remove Nitro-Dur Patch) 1 each N/A DAILY@2100 [facility] Stop: 08/09/22 20:59 Last Admin: 07/11/22 20:47 Dose: 1 each Multivitamins (Multivitamin Tab) 1 tab PO QAM [facility] Stop: 08/09/22 08:59 Last Admin: 07/12/22 09:05 Dose: 1 tab Naphazoline HCl/Pheniramine Maleate (Naphazolin/Pheniramin Oph Soln 75 Drops/5 Ml Btl) 2 drops OPB QID PRN PRN Reason: itchy watery eyes Stop: 08/09/22 14:58 Last Admin: 07/12/22 10:09 Dose: 2 drops Nitroglycerin (Nitroglycerin 0.4 Mg/Hr Patch) 1 patch TD QAM [facility] Stop: 08/09/22 08:59 Last Admin: 07/12/22 09:10 Dose: 1 patch Prednisone (Prednisone 20 Mg Tab) 40 mg PO QAM [facility] Stop: 08/10/22 11:29 Last Admin: 07/12/22 09:04 Dose: 40 mg Rosuvastatin Calcium (Rosuvastatin Calcium 20 Mg Tab) 40 mg PO HS [facility] Stop: 08/09/22 20:59 Last Admin: 07/11/22 20:45 Dose: 40 mg Sennosides (Senna 8.6 Mg Tab) 8.6 mg PO DAILY PRN PRN Reason: Constipation Stop: 08/09/22 03:12 Last Admin: 07/10/22 08:21 Dose: 8.6 mg Spironolactone (Spironolactone 12.5 Mg Tab) 12.5 mg PO DAILY MARVIN Stop: 08/10/22 08:59 Last Admin: 07/12/22 09:04 Dose: 12.5 mg Terazosin HCl (Terazosin Hcl 5 Mg Cap) 5 mg PO BID MARVIN Stop: 08/09/22 08:59 Last Admin: 07/12/22 09:03 Dose: 5 mg Tramadol HCl (Tramadol Hcl 50 Mg Tablet) 25 - 50 mg PO Q4H PRN PRN Reason: Pain Stop: 08/09/22 03:12 Umeclidinium/Vilanterol (Umeclidinium/Vilanterol 62.5/25mcg 7 Puffs/Inhaler) 1 puffs INH DAILY MARVIN Stop: 08/09/22 08:59 Last Admin: 07/12/22 09:06 Dose: 1 puffs
[2022-07-12] MEDS: cefTRIAXone SODIUM 2,000 MG in DEXTROSE 5% 50 ML IV SCH (15:20)
[2022-07-12] MEDS: FINASTERIDE 5 MG TAB PO SCH (20:36)
[2022-07-12] MEDS: FAMOTIDINE 40 MG TABLET PO SCH (20:37)
[2022-07-12] MEDS: ROSUVASTATIN CALCIUM 20 MG TAB PO SCH (20:38)
[2022-07-13] MEDS: CHECK CLONIDINE PATCH PLACEMENT SCH ×2 (01:16→08:25)
[2022-07-13] MEDS: LEVOTHYROXINE SODIUM 100 MCG TABLET PO SCH (06:10)
[2022-07-13 06:41] LABS: Hematocrit (blood only) 42.6 % (40.1-51.0); Hemoglobin 13.6 g/dl (14.0-18.0); Mean Corpuscular Hemoglobin 29.9 pg (25.0-34.0); Mean Corpuscular Hgb Conc 31.9 g/dL (32.0-36.0); Mean Corpuscular Volume 93.6 fL (80.0-100.0); Mean Platelet Volume 10.4 fL (9.4-12.4); Platelet Count 163 K/uL (130-400); RDW Coefficient of Variation 14.4 % (11.5-14.5); RDW Standard Deviation 49.9 fL (36.4-46.3); Red Blood Count 4.55 M/uL (4.63-6.08); White Blood Count 6.04 K/ul (4.8-10.8)
[2022-07-13 07:01] LABS: BUN Creatinine Ratio 19.6 (10-20); Calcium 9.2 mg/dl (8.5-10.1); Creatinine Clr Calc Pharmacy 61.6 ml/min; Est GFR (African American) 50.4 ml/min; Est GFR (Non-African American) 43.5 ml/min; Potassium 4.1 mmol/L (3.5-5.1)
[2022-07-13] MEDS: DOXYCYCLINE HYCLATE 100 MG CAP PO SCH (08:14)
[2022-07-13] MEDS: TERAZOSIN HCL 5 MG CAP PO SCH (08:14)
[2022-07-13] MEDS: allopurinoL 300 MG TAB PO SCH (08:15)
[2022-07-13] MEDS: predniSONE 20 MG TAB PO SCH (08:15)
[2022-07-13] MEDS: hydrALAZINE TAB 50 MG TAB PO SCH ×2 (08:15→14:10)
[2022-07-13] MEDS: SPIRONOLACTONE 12.5 MG TAB PO SCH (08:16)
[2022-07-13] MEDS: ASPIRIN 81 MG ECTAB PO SCH (08:16)
[2022-07-13] MEDS: MULTIVITAMIN TAB PO SCH (08:16)
[2022-07-13] MEDS: buPROPion SR 150 MG TABCR PO SCH (08:17)
[2022-07-13] MEDS: LOSARTAN POTASSIUM 50 MG TAB PO SCH (08:17)
[2022-07-13] MEDS: FLUTICASONE PROPIONATE NA SPR 16 GM BTL SCH (08:17)
[2022-07-13] MEDS: UMECLIDINIUM/VILANTEROL 62.5/25MCG 7 PUFFS/INHALER INH SCH (08:18)
[2022-07-13] MEDS: NITROGLYCERIN 0.4 MG/HR PATCH TD SCH (08:18)
[2022-07-13] MEDS: carvediloL 25 MG TAB PO SCH (08:19)
[2022-07-13] MEDS: NAPHAZOLIN/PHENIRAMIN OPH SOLN 75 DROPS/5 ML BTL OPB PRN ×2 (08:25→14:10)
[2022-07-13] MEDS ORDERED: LANTUS PER UNIT CHARGE SQ SCH (09:00)
[2022-07-13] MEDS ORDERED: cloNIDine HCL 0.3 MG/24 HR TRANSDERM SYS TD SCH (09:00)
[2022-07-13] MEDS: INSULIN ASPART PER UNIT SC SCH ×2 (09:09→12:53)
--- NOTE | 2022-07-13 10:24 | Orthopedic Progress Note ---
Date of Service July 13, 2022 Assessment & Plan (1) Cellulitis: Plan: Cellulitis of the right ankle and foot. Status post ORIF right fibular fracture in 2014. Noted wound healing issues postoperatively resulting in skin grafting which did heal. Much improvement overall of the cellulitis over the lateral aspect of the ankle. Continue elevation of his right foot when at rest. Patient can be discharged from an orthopedic standpoint. Orthopedics will sign off at this time. Patient can follow-up in our office with Dr. Mackay the future if he has any need. Admission and Anticipated Discharge Date Admission Date: July 09, 2022 Subjective Patient lying in bed awake and alert. No new complaints. Physical Exam Physical Exam: Nursing staff present. KRISHAN hose and sock removed. Patient has overall improvement of the erythema over the lateral aspect of his ankle. Much less erythema. Small area around his initial surgical site remains that is a darkened erythema. Still having some discomfort on palpation but no areas of fluctuance that I can appreciate. Ankle range of motion within normal limits without discomfort. Incision intact. Results & Data ([facility]) Vital Signs (Past 12 Hours) Vital Signs Temp Pulse Resp BP BP Pulse Ox O2 Del Method 07/13/22 10:15 57 L 120/76 07/13/22 08:09 54 L 169/93 H 07/13/22 07:57 Room Air 07/13/22 07:15 36.4 C L 51 L 20 163/84 H 95 CPAP
[2022-07-13] MEDS: FERROUS SULFATE 325 MG TAB PO SCH (11:35)
--- NOTE | 2022-07-13 13:05 | Discharge Summary ---
Discharge Summary Date of Service July 13, 2022 Notes For Next Care Provider -please re-evaluate erythema on right ankle and ensure progressing well within the next week -question if this may have been a gout flare; follow-up with patient on this after prednisone taper -seen by ortho in hospital and no followup needed at this time; no concern for infected hardware -iron deficiency noted in hospital and he was started on oral iron supplementation; please ensure up to date on colonoscopy and follow iron levels Medication Changes From Visit Start Doxycycline 100mg BID x 5 days Start Prednisone taper (20mg PO daily x 3 days, 10mg PO daily x 3 days, then stop) Start Ferrous sulfate 325mg PO BID Admission HPI Per Admitting Provider History obtained from patient and records. 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 Last confinement August 2021 for COPD exacerbation secondary to COVID-19 infection. 3 days history of right ankle pain, fever, swelling. Recollection of recent trauma. History of right ankle surgery in 2013 complicated by poor healing. Patient seen at PCPs office 2 days ago. Keflex prescribed for RLE cellulitis. Outpatient right ankle x-ray showed diffuse soft tissue swelling without osteomyelitis. CRP noted to be elevated. Worsening swelling despite compliance with first 2 doses of Keflex. Low-grade fever at home. Chest pain. Usual shortness of breath on exertion. Patient directed to ER by outpatient provider for further evaluation. Patient given Ceftriaxone at the ER. Medical History as above Surgical History : Ankle fracture surgery, cataract surgery, cystoscopy, laparoscopic hernia repair, meningioma removal, skin cancer surgery, vascular procedure, blepharoplasty, skin grafting, knee cyst removal Family History : Alcoholism, lymphoma, DM, heart disease Personal/Social history : Past tobacco abuse, occasional EtOH intake, retired milk pickup truck driver Admission Exam Per Admitting Provider Physical Exam Physical Exam: GENERAL: Comfortable, occasional SOB during speech, morbidly obese, pleasant, no respiratory distress SKIN: Normal color, warm HEENT: Handley palpebral conjunctivae, no ptosis, dry buccal mucosa NECK : Supple, short neck, no tenderness CHEST : Decreased breath sounds, no tenderness HEART : RRR, no obvious murmurs ABDOMEN: Marked distention, nontender RECTAL : Intact sphincter, brown stool (FOBT negative) EXTREMITIES : Tender RLE induration, no other conspicuous deformities noted NEUROLOGIC : Coherent, no facial asymmetry, no other gross focality Principal Dx & Hospital Course #1 = Principal Diagnosis (1) Synovitis of ankle: (2) Cellulitis: RLE cellulitis vs synovitis (?gout) of R ankle joint Failed outpatient treatment Improved on current antibiotic therapy TTP around the right lateral malleolus and with pain, warmth and swelling into the foot, has improved today with resolution of the RLE edema. Suspect OA flare vs gout flare. Cont short course prednisone Cont IV abx --per ortho cont one more day given hardware in place. 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 Iron deficiency noted on am labwork-->starting supplementation now. outpatient follow-up to ensure he is up to date with CRC screening, etc. Fior Lujan DO [facility] Hospitalist (3) Obesity, morbid, BMI 40.0-49.9: Plan 76 yo man presented to the ER with swelling, pain and redness around his right ankle x 3 days. He had recently been taking an oral antibiotic as outpatient, however, symptoms were worsening. Ankle CT revealed that he was status post distal right fibular internal fixation with plates and screws with hardware intact and no lucency to suggest loosening. Distal right fibular fracture appeared healed. No fluid collection was present that would suggests abscess and there was no soft tissue gas present. CBC revealed no leukocytosis (6.54), H/H was 12/6/39.4, PLT 122. BMP was within normal limits except for CKD with BUN 27, Creat 1.72. Glucose was 103. Procalcitonin was 0.06. Lactate was 0.6. There was no sepsis present on admission. Venous Doppler on the right was negative for DVT. He was treated with Rocephin in the ED and continued on doxycycline by the hospitalist. The following day he still had significant swelling and tenderness and Rocephin was added back to his regimen. He improved with this and KRISHAN stockings overnight but there was still a focal area of erythema and tenderness over the right lateral malleolus. With a history of gout, gout flare was considered more likely and a prednisone taper was started (pt on warfarin and with CKD). He improved daily. Orthopedics was consulted and kept him one more day for additional IV antibiotics, but felt he was fine f rom their standpoint. He was discharged on a short courses of antibiotics and a prednisone taper in stable condition wtih close primary care followup. He was evaluated by physical therapy and was ambulating at baseline at the time of discharge. Discharge Exam CONSTITUTIONAL: obese, vitals as above, generally well-appearing, NAD EYES: normal conjunctivae, no scleral icterus ENT: external ear and nose normal, MMM NECK: trachea midline RESPIRATORY: clear to auscultation bilaterally, no crackles, rales or wheezes, normal respiratory effort CARDIOVASCULAR: regular rate and rhythm, S1 and 2 heard without murmurs, gallops or rubs, no JVD, no peripheral edema CHEST: inspection of chest was normal GASTROINTESTINAL: soft, nontender, ND, no guarding MUSCULOSKELETAL: strength 5/5 throughout, head is normocephalic and atraumatic SKIN: warm and dry, 2+ pitting edema in the RLE. There is exquisite pain to palpation of the right lateral malleolus area that is better today. Min to no erythema on the surrounding area, but still focally over the right lateral malleolus. NEUROLOGIC: CN 2-12 grossly intact, no sensory deficit, normal cognition, normal speech, no tremor PSYCHIATRIC: alert cooperative and oriented to person, place and time. Euthymic mood, makes good eye contact, language grossly intact, recent and remote memory grossly intact. Updated Medication List Medication Instructions Recorded Confirmed Type acetaminophen 500 mg tablet 1,000 mg PO Q6H PRN Pain 08/28/21 07/09/22 History bupropion HCl 150 mg tablet,12 hr 150 mg PO BID 08/28/21 07/09/22 History sustained-release carvedilol 25 mg tablet 50 mg PO BID 08/28/21 07/09/22 History clonidine 0.3 mg/24 hr weekly 1 patch transdermal WK 08/28/21 07/09/22 History transdermal patch famotidine 20 mg tablet 40 mg PO HS 08/28/21 07/09/22 History finasteride 5 mg tablet 5 mg PO HS 08/28/21 07/09/22 History furosemide 20 mg tablet (Lasix) 20 mg PO 5XWK 08/28/21 07/09/22 History furosemide 40 mg tablet (Lasix) 40 mg PO 3XWK 08/28/21 07/09/22 History hydralazine 50 mg tablet 50 mg PO TID 08/28/21 07/09/22 History insulin glargine 100 unit/mL 30 unit subcut QAM 08/28/21 07/09/22 History subcutaneous solution (Lantus U-100 Insulin) insulin regular human 100 unit/mL 0 unit subcut TIDM 08/28/21 07/09/22 History injection solution (Novolin R Regular U-100 Insulin) ipratropium 0.5 mg-albuterol 3 mg 1 ml inhalation QID PRN Shortness 08/28/21 07/09/22 History (2.5 mg base)/3 mL nebulization Of Breath soln levothyroxine 100 mcg tablet 100 mcg PO QAM 08/28/21 07/09/22 History losartan 100 mg tablet 100 mg PO QAM 08/28/21 07/09/22 History multivitamin 1 tab PO QAM 08/28/21 07/09/22 History rosuvastatin 40 mg tablet 40 mg PO HS 08/28/21 07/09/22 History spironolactone 25 mg tablet 12.5 mg PO DAILY 08/28/21 07/09/22 History terazosin 5 mg capsule 5 mg PO BID 08/28/21 07/09/22 History umeclidinium 62.5 mcg-vilanterol 1 inh inhalation DAILY 08/28/21 07/09/22 History 25 mcg/actuation powdr for inhalation (Anoro Ellipta) warfarin 3 mg tablet 9 mg PO WK 08/28/21 07/09/22 History warfarin 6 mg tablet 6 mg PO 6XWK 08/28/21 07/09/22 History allopurinol 300 mg tablet 300 mg PO DAILY 07/09/22 07/09/22 History aspirin 81 mg tablet,delayed 81 mg PO DAILY 07/09/22 07/09/22 History release cholecalciferol (vitamin D3) 25 25 mcg PO DAILY 07/09/22 07/09/22 History mcg (1,000 unit) tablet fluticasone propionate 50 2 spray intranasal DAILY 07/09/22 07/09/22 History mcg/actuation nasal spray,suspension (Flonase Allergy Relief) glimepiride 2 mg tablet 2 mg PO QAM 07/09/22 07/09/22 History insulin glargine 100 unit/mL 70 unit subcut QPM 07/09/22 07/09/22 History subcutaneous solution (Lantus U-100 Insulin) sennosides 8.6 mg tablet (Senna 8.6 mg PO DAILY PRN Constipation 07/09/22 07/09/22 History Lax) nitroglycerin 0.4 mg/hr 0.4 mg transdermal DAILY 07/12/22 07/12/22 History transdermal 24 hour patch (Nitro-Dur) doxycycline hyclate 100 mg capsule 100 mg PO BID #10 caps 07/13/22 Rx ferrous sulfate 325 mg (65 mg 325 mg PO BID@1100,1700 #60 tabs 07/13/22 Rx iron) tablet,delayed release prednisone 10 mg tablet 10 mg PO DIRECTED #10 tabs 07/13/22 Rx Hospital Stay Data Consultations 07/09/22 22:35 ED Decision to Admit Stat 07/11/22 11:34 Consult Orthopedic Surgery Routine Diagnostic Imagining Performed 07/09/22 19:11 CT ankle RT w con Urgent 07/09/22 19:15 US venous doppler LE RT Urgent Discharge Instructions Given to Patient (Per Discharging Provider) Please take all medications as instructed on medication list below. You are being placed on a short course of antibiotics. You are being placed on a short, tapered dose of prednisone (steroid) in case this is a gout flare. Please take 20mg daily x 3 days then take 10mg daily x 3 days, then stop. If you find your blood sugar is higher than 200, please make note of when this was taken (i.e: fasting before breakfast, before lunch, after lunch, etc) and notify your provider/clinic. You may also contact the hospital senior power plant operator and ask to speak with me for guidance. Please follow-up with your primary care provider at the date and time above. This is important to ensure your leg is progressing well. You have been given iron supplementation to start for iron deficiency seen on labwork while you were in the hospital. Please discuss with your primary care physician if any further investigation is needed into the cause of this, and have them repeat your iron levels within a couple of months. It was a pleasure taking care of you! Please call if you have any questions or problems. You can reach a [facility] hospitalist on duty at [facility] 24 hours a day by calling [phone]. Take care of yourself. Fior Lujan, [facility] Total Time Total Time Spent Total Time Spent (In Minutes): 60
== END 2022-07-13 16:12 | disposition home or self-care (01) | DRG 603 ==
LOC: ED 17:19 → 2N 23:42 → 3E 07-12 08:06